=== PATIENT | female | born 1945 | race Caucasian/White ===

== ENCOUNTER 2023-01-13 12:54 | Inpatient (IN) | payer MEDICARE ==
[2023-01-13] MEDS ORDERED: SODIUM CHLORIDE 0.9% 500 ML 500 ML IV ONE (13:14)
--- NOTE | 2023-01-13 13:22 | ED ---
General Adult HPI - General Chief complaint: Weakness Stated complaint: afib Time Seen by Provider: 01/13/23 13:00 Source: patient, EMS, RN notes reviewed, old records reviewed Mode of arrival: EMS Limitations: altered mental status - History of Present Illness Initial comments: This is a 77-year-old female presents emergency Department via EMS report, which she was confused and that is why her called EMS. When EMS R they thought she was in A. fib with rapid ventricular response. Patient's only give any further history because of her dementia. Patient has no one with her at this time to give any further history. - Related Data Home Medications Medication Instructions Recorded Confirmed Metoprolol Succinate (ER) [Toprol 50 mg PO DAILY 01/13/23 01/13/23 Xl] Sertraline [Zoloft] 100 mg PO DAILY 01/13/23 01/13/23 Allergies Allergy/AdvReac Type Severity Reaction Status Date / Time No Known Allergies Allergy Verified 01/13/23 14:19 Review of Systems ROS Statement: Those systems with pertinent positive or pertinent negative responses have been documented in the HPI. ROS Other: All systems not noted in ROS Statement are negative. Past Medical History Past Medical History: Unable to Obtain History of Any Multi-Drug Resistant Organisms: None Reported Past Surgical History: Unable to Obtain Past Psychological History: No Psychological Hx Reported Smoking Status: Current every day smoker Past Alcohol Use History: Occasional Past Drug Use History: None Reported General Exam - General Exam Comments Initial Comments: GENERAL: Patient is well-developed and well-nourished. Patient is nontoxic and well- hydrated and is in no acute distress. ENT: Neck is soft and supple. No significant lymphadenopathy is noted. Oropharynx is clear. Moist mucous membranes. Neck has full range of motion without eliciting any pain. EYES: The sclera were anicteric and conjunctiva were pink and moist. Extraocular movements were intact and pupils were equal round and reactive to light. Eyelids were unremarkable. PULMONARY: Unlabored respirations. Good breath sounds bilaterally. No audible rales rhonchi or wheezing was noted. CARDIOVASCULAR: Patient is tachycardic at 110 beats a minute with occasional extrasystole ABDOMEN: Soft and nontender with normal bowel sounds. SKIN: Skin is clear with no lesions or rashes and otherwise unremarkable. NEUROLOGIC: Patient is alert and oriented 1. Cranial nerves II through XII are grossly intact. Motor and sensory are also intact. Normal speech, volume and content. Symmetrical smile. MUSCULOSKELETAL: Normal extremities with adequate strength and full range of motion. No lower extremity swelling or edema. No calf tenderness. LYMPHATICS: No significant lymphadenopathy is noted PSYCHIATRIC: Normal psychiatric evaluation. Limitations: altered mental status Course Vital Signs 01/13/23 01/13/23 01/13/23 12:55 14:02 16:32 Temperature 99.8 F H 98.7 F Pulse Rate 123 H 96 79 Respiratory 20 18 18 Rate Blood Pressure 100/88 100/88 103/58 O2 Sat by Pulse 87 L 93 L 93 L Oximetry 01/13/23 01/13/23 18:19 19:19 Temperature Pulse Rate 80 67 Respiratory 18 18 Rate Blood Pressure 121/54 125/60 O2 Sat by Pulse 97 96 Oximetry Medical Decision Making - Medical Decision Making EKG was interpreted by myself. EKG shows sinus tachycardia QRSs at a rate of 114 bpm KS interval 110-170 QT interval 390 QTC is 377. Patient's EKG shows multiple PACs Was pt. sent in by a medical professional or institution (, PA, [employer], urgent care, hospital, or snf...) When possible be specific @ -[No] Did you speak to anyone other than the patient for history (EMS, parent, family, police, friend...)? What history was obtained from this source @ -Patient was unable to give any history so EMS control history no family member was with the patient at this time Did you review nursing and triage notes (agree or disagree)? Why? @ -[I reviewed and agree with nursing and triage notes] Were old charts reviewed (outside hosp., previous admission, EMS record, old EKG, old radiological studies, urgent care reports/EKG's, snf records)? Report findings @ -I reviewed prior lab work and prior radiologic studies Differential Diagnosis (chest pain, altered mental status, abdominal pain women, abdominal pain men, vaginal bleeding, weakness, fever, dyspnea, syncope, headache, dizziness, GI bleed, back pain, seizure, CVA, palpatations, mental health, musculoskeletal)? @ -Differential Altered Mental Status: Hypoglycemia, DKA, hypercapnia, ETOH, overdose, CO poisoning, trauma, myxedema coma, HTN encephalopathy, infection, encephalitis, psychosis, intercranial hemorrhage, hepatic encephalopathy, meningitis, CVA, this is not meant to be an all-inclusive list EKG interpreted by me (3pts min.). @ -[As above] X-rays interpreted by me (1pt min.). @ -Chest x-ray was interpreted by myself I see no acute abnormality CT interpreted by me (1pt min.). @ -[None done] U/S interpreted by me (1pt. min.). @ -[None done] What testing was considered but not performed or refused? (CT, X-rays, U/S, labs)? Why? @ -[None] What meds were considered but not given or refused? Why? @ -[None] Did you discuss the management of the patient with other professionals (professionals i.e. , PA, [employer], lab, RT, psych nurse, social work instructor, slicing machine tender, teacher, career services officer, leather case finisher)? Give summary @ -I spoke with the [facility] physician's agreed to admit the patient admitted the patient Was smoking cessation discussed for >3mins.? @ -[No] Was critical care preformed (if so, how long)? @ -[No] Were there social determinants of health that impacted care today? How? (Ho melessness, low income, unemployed, alcoholism, drug addiction, transportation, low edu. Level, literacy, decrease access to med. care, [facility], rehab)? @ -[No] Was there de-escalation of care discussed even if they declined (Discuss DNR or withdrawal of care, Hospice)? DNR status @ -[No] What co-morbidities impacted this encounter? (DM, HTN, Smoking, COPD, CAD, Cancer, CVA, ARF, Chemo, Hep., AIDS, mental health diagnosis, sleep apnea, morbid obesity)? @ -[None] Was patient admitted / discharged? Hospital course, mention meds given and route, prescriptions, significant lab abnormalities, going to OR and other pertinent info. @ -Patient is altered does not know why she is in the emergency department. Patient has urinary tract infection. I started the patient on Rocephin and I spoke with [facility] physician's agreed to admit the patient. I spoke with the he was indicated because of her confusion and her inability to get out of a chair with assistance he did not feel as though he couldn't take care of her Undiagnosed new problem with uncertain prognosis? @ -[No] Drug Therapy requiring intensive monitoring for toxicity (Heparin, Nitro, Insulin, Cardizem)? @ -[No] Were any procedures done? @ -[No] Diagnosis/symptom? @ -Altered mental status Acute, or Chronic, or Acute on Chronic? @ -Acute Uncomplicated (without systemic symptoms) or Complicated (systemic symptoms)? @ -Complicated Side effects of treatment? @ -[No] Exacerbation, Progression, or Severe Exacerbation? @ -[No] Poses a threat to life or bodily function? How? (Chest pain, [place], [place], pneumonia, PE, COPD, DKA, ARF, appy, cholecystitis, CVA, Diverticulitis, Homicidal, Suicidal, threat to staff... and all critical care pts) @ -[No] Diagnosis/symptom? @ -Urinary tract infection Acute, or Chronic, or Acute on Chronic? @ -Acute Uncomplicated (without systemic symptoms) or Complicated (systemic symptoms)? @ -Complicated Side effects of treatment? @ -[none] Exacerbation, Progression, or Severe Exacerbation] @ -[no] Poses a threat to life or bodily function? @ -Yes this could lead to sepsis and end organ dysfunction - Lab Data Result diagrams: 01/14/23 06:43 01/14/23 06:43 Lab Results 01/13/23 01/13/23 01/13/23 Range/Units 13:37 13:37 13:37 WBC 7.7 (3.8-10.6) k/uL RBC 4.04 (3.80-5.40) m/uL Hgb 10.9 L (11.4-16.0) gm/dL Hct 33.2 L (34.0-46.0) % MCV 82.1 (80.0-100.0) fL MCH 26.9 (25.0-35.0) pg MCHC 32.8 (31.0-37.0) g/dL RDW 15.9 H (11.5-15.5) % Plt Count 101 L (150-450) k/uL MPV 7.8 Neutrophils % 93 % Lymphocytes % 1 % Monocytes % 5 % Eosinophils % 0 % Basophils % 0 % Neutrophils # 7.1 (1.3-7.7) k/uL Lymphocytes # 0.1 L (1.0-4.8) k/uL Monocytes # 0.4 (0-1.0) k/uL Eosinophils # 0.0 (0-0.7) k/uL Basophils # 0.0 (0-0.2) k/uL Poikilocytosis Slight PT 10.7 (9.0-12.0) sec INR 1.0 (<1.2) APTT 24.1 (22.0-30.0) sec Sodium (137-145) mmol/L Potassium (3.5-5.1) mmol/L Chloride (98-107) mmol/L Carbon Dioxide (22-30) mmol/L Anion Gap mmol/L BUN (7-17) mg/dL Creatinine (0.52-1.04) mg/dL Est GFR (CKD-EPI)AfAm (>60 ml/min/1.73 sqM) Est GFR (CKD-EPI)NonAf (>60 ml/min/1.73 sqM) Glucose (74-99) mg/dL Calcium (8.4-10.2) mg/dL Total Bilirubin (0.2-1.3) mg/dL AST (14-36) U/L ALT (4-34) U/L Alkaline Phosphatase (38-126) U/L Troponin I (0.000-0.034) ng/mL Total Protein (6.3-8.2) g/dL Albumin (3.5-5.0) g/dL Urine Color Yellow Urine Appearance Turbid H (Clear) Urine pH 6.0 (5.0-8.0) Ur Specific Mozelle 1.017 (1.001-1.035) Urine Protein 3+ H (Negative) Urine Glucose (UA) Trace H (Negative) Urine Ketones Trace H (Negative) Urine Blood Large H (Negative) Urine Nitrite Negative (Negative) Urine Bilirubin Negative (Negative) Urine Urobilinogen <2.0 (<2.0) mg/dL Ur Leukocyte Esterase Large H (Negative) Urine RBC 38 H (0-5) /hpf Urine WBC >182 H (0-5) /hpf Urine WBC Clumps Many H (None) /hpf Ur Squamous Epith Cells 5 H (0-4) /hpf Urine Bacteria Many H (None) /hpf Urine Opiates Screen Not Detected (NotDetected) Ur Oxycodone Screen Not Detected (NotDetected) Urine Methadone Screen Not Detected (NotDetected) Ur Propoxyphene Screen Not Detected (NotDetected) Ur Barbiturates Screen Not Detected (NotDetected) U Tricyclic Antidepress Not Detected (NotDetected) Ur Phencyclidine Scrn Not Detected (NotDetected) Ur Amphetamines Screen Not Detected (NotDetected) U Methamphetamines Scrn Not Detected (NotDetected) U Benzodiazepines Scrn Not Detected (NotDetected) Urine Cocaine Screen Not Detected (NotDetected) U Marijuana (THC) Screen Not Detected (NotDetected) 01/13/23 01/13/23 Range/Units 13:37 13:37 WBC (3.8-10.6) k/uL RBC (3.80-5.40) m/uL Hgb (11.4-16.0) gm/dL Hct (34.0-46.0) % MCV (80.0-100.0) fL MCH (25.0-35.0) pg MCHC (31.0-37.0) g/dL RDW (11.5-15.5) % Plt Count (150-450) k/uL MPV Neutrophils % % Lymphocytes % % Monocytes % % Eosinophils % % Basophils % % Neutrophils # (1.3-7.7) k/uL Lymphocytes # (1.0-4.8) k/uL Monocytes # (0-1.0) k/uL Eosinophils # (0-0.7) k/uL Basophils # (0-0.2) k/uL Poikilocytosis PT (9.0-12.0) sec INR (<1.2) APTT (22.0-30.0) sec Sodium 133 L (137-145) mmol/L Potassium 4.2 (3.5-5.1) mmol/L Chloride 102 (98-107) mmol/L Carbon Dioxide 21 L (22-30) mmol/L Anion Gap 10 mmol/L BUN 62 H (7-17) mg/dL Creatinine 2.09 H (0.52-1.04) mg/dL Est GFR (CKD-EPI)AfAm 25 (>60 ml/min/1.73 sqM) Est GFR (CKD-EPI)NonAf 22 (>60 ml/min/1.73 sqM) Glucose 119 H (74-99) mg/dL Calcium 8.1 L (8.4-10.2) mg/dL Total Bilirubin 0.8 (0.2-1.3) mg/dL AST 30 (14-36) U/L ALT 22 (4-34) U/L Alkaline Phosphatase 73 (38-126) U/L Troponin I 0.066 H* (0.000-0.034) ng/mL Total Protein 5.3 L (6.3-8.2) g/dL Albumin 2.8 L (3.5-5.0) g/dL Urine Color Urine Appearance (Clear) Urine pH (5.0-8.0) Ur Specific Mozelle (1.001-1.035) Urine Protein (Negative) Urine Glucose (UA) (Negative) Urine Ketones (Negative) Urine Blood (Negative) Urine Nitrite (Negative) Urine Bilirubin (Negative) Urine Urobilinogen (<2.0) mg/dL Ur Leukocyte Esterase (Negative) Urine RBC (0-5) /hpf Urine WBC (0-5) /hpf Urine WBC Clumps (None) /hpf Ur Squamous Epith Cells (0-4) /hpf Urine Bacteria (None) /hpf Urine Opiates Screen (NotDetected) Ur Oxycodone Screen (NotDetected) Urine Methadone Screen (NotDetected) Ur Propoxyphene Screen (NotDetected) Ur Barbiturates Screen (NotDetected) U Tricyclic Antidepress (NotDetected) Ur Phencyclidine Scrn (NotDetected) Ur Amphetamines Screen (NotDetected) U Methamphetamines Scrn (NotDetected) U Benzodiazepines Scrn (NotDetected) Urine Cocaine Screen (NotDetected) U Marijuana (THC) Screen (NotDetected) Disposition Clinical Impression: UTI (urinary tract infection), Altered mental status Disposition: ADMITTED IP TO THIS [facility] Time of Disposition: 15:15
[2023-01-13 14:44] LABS: Basophils % (A) 0 %; Eosinophils % (A) 0 %; HCT 33.2 % (34.0-46.0); HGB 10.9 gm/dL (11.4-16.0); Lymphocytes # (A) 0.1 k/uL (1.0-4.8); Lymphocytes % (A) 1 %; MCH 26.9 pg (25.0-35.0); MCHC 32.8 g/dL (31.0-37.0); MCV 82.1 fL (80.0-100.0); Mean Platelet Volume 7.8; Monocytes # (A) 0.4 k/uL (0-1.0); Monocytes % (A) 5 %; Neutrophils # (A) 7.1 k/uL (1.3-7.7); Neutrophils % (A) 93 %; Platelet Count 101 k/uL (150-450); Poikilocytosis Slight; RBC 4.04 m/uL (3.80-5.40); RDW 15.9 % (11.5-15.5); WBC 7.7 k/uL (3.8-10.6)
[2023-01-13 14:51] LABS: Appearance,Urine Turbid (Clear); Bacteria,Urine Many /hpf; Bilirubin,Urine Negative (Negative); Blood,Urine Large (Negative); Color,Urine Yellow; Glucose,Urine (UA) Trace (Negative); Ketones,Urine Trace (Negative); Leukocyte Esterase,Urine Large (Negative); Nitrite,Urine Negative (Negative); Protein,Urine 3+ (Negative); RBC,Urine 38 /hpf (0-5); Specific Gravity,Urine 1.017 (1.001-1.035); Squamous Epithelial Cell,Urine 5 /hpf (0-4); Urobilinogen,Urine <2.0 mg/dL (<2.0); WBC,Urine >182 /hpf (0-5)
[2023-01-13 14:54] LABS: Partial Thromboplastin Time 24.1 sec (22.0-30.0); Prothrombin Time 10.7 sec (9.0-12.0)
[2023-01-13] MEDS ORDERED: cefTRIAXone IN SWFI 1,000 MG/10 ML SYRINGE IVP STA (14:55)
[2023-01-13] MEDS ORDERED: SODIUM CHLORIDE 0.9% 1,000 ML IV ONE (15:15)
[2023-01-13 15:20] LABS: Cocaine Screen,Urine Not Detected (NotDetected); Phencyclidine Screen,Urine Not Detected (NotDetected)
[2023-01-13 15:21] LABS: Amphetamine Screen,Urine Not Detected (NotDetected); Benzodiazepines Screen,Urine Not Detected (NotDetected); Opiate Screen,Urine Not Detected (NotDetected); Tricyclic Antidepressant,Urine Not Detected (NotDetected)
[2023-01-13 15:22] LABS: Barbiturate Screen,Urine Not Detected (NotDetected); Methadone Screen, Urine Not Detected (NotDetected)
[2023-01-13 15:23] LABS: Oxycodone Screen, Urine Not Detected (NotDetected); Urn Cannabinoid Scrn Not Detected (NotDetected)
[2023-01-13 15:27] LABS: Albumin 2.8 g/dL (3.5-5.0); Calcium 8.1 mg/dL (8.4-10.2); Potassium 4.2 mmol/L (3.5-5.1); Total Bilirubin 0.8 mg/dL (0.2-1.3); Total Protein 5.3 g/dL (6.3-8.2)
--- NOTE | 2023-01-13 15:30 | XR ---
EXAMINATION TYPE: XR chest 2V DATE OF EXAM: 01/13/2023 COMPARISON: NONE TECHNIQUE: PA and lateral views submitted. HISTORY: A. Fib FINDINGS: The lungs are clear and there is no pneumothorax, pleural effusion, or focal pneumonia. Heart size normal and no overt failure. Osseous structures demonstrate hypertrophic and degenerative changes of the spine. Hyperinflation suggests COPD. Related previous last implant surgery. IMPRESSION: 1. No acute process.
--- NOTE | 2023-01-13 16:18 | P.HPIM ---
History of Present Illness H&P Date: 01/13/23 Chief Complaint: Generalized weakness, confusion 77-year-old woman with medical history of hypertension, depression presented for generalized weakness and confusion. According to the patient, she has been having generalized shakes, increasing weakness over the last month, worse in the last 2 weeks. This is why she believes she is in the hospital. However, from my understanding from history taken from the ER provider signout, patient was confused and not sure why she was in the emergency room initially, and was actually brought in by her cousin who lives with her. According to her cousin, patient has an having increasing confusion, and has not moved much from the bed over the last several weeks, but worse the last couple days. Due to concern over this, patient was brought in by patient's cousin for further evaluation. When this history was reviewed with the patient, she largely agrees with the course of events, she does report that she's been having generalized shakes, weakness. She says that she has not been able to walk over the last month, but before that she was able to walk with the use of a walker. She lives independently with her cousin who is her roommate, does not seek the help of any home health care services at this time, and was previously able to take care of her IADLs and ADLs independently. She reports a history of high blood pressure for which she takes a medication that she can't recall immediately, but denies any other history including denial of strokes, heart attacks/heart disease, kidney disease, liver disease, diabetes, hyper lipidemia. She denies fevers, chills, nausea, vomiting, chest pain, palpitations, syncopal, presyncope, cough, dyspnea, abdominal pain, constipation, diarrhea, numbness/weakness of extremities. She does report dysuria and hesitancy with urination, worse in the last couple days. In the emergency room, patient was noted to have a temperature of 99.8, 100/88, heart rate 123, 87% on room air. She was placed on 4 L nasal cannula and saturating 93%. CBC demonstrated anemia down to 10.9, thrombocytopenia to 101. Basic metabolic panel shows sodium of 133, CO2 of 21, BUN of 62, creatinine 2.1, baseline creatinine is noted to be 1.5 from October 2022. Liver function tests showed low total albumin of 2.8, low total protein of 5.3. Troponin was 0.066. Coags are unremarkable. UA showed 3+ protein, trace glucose, trace ketones, large blood, large leukocyte esterase, 30 red blood cells, greater than 182 white blood cells, but was contaminated with 5 squamous epithelial cells. Urine tox screen is negative. EKG demonstrated sinus tachycardia with left axis deviation, T-wave inversions in leads 1, aVL, V2; there are frequent premature supraventricular complexes. Chest x-ray shows hyperinflation suggestive of COPD, previous implant surgery, but no pneumothorax, pleural effusion, focal pneumonia. Case was discussed with the emergency room provider and decision was made to admit the patient for further evaluation. All Systems reviewed and pertinent positives and negatives noted in HPI, all other symptoms are negative Gen: in no apparent distress, resting comfortably in bed, alert and oriented 3, confusion appears to have improved to baseline Eyes: PERRL, no scleral injection or icterus HENT: normocephalic, atraumatic, good hearing acuity, moist mucous membranes Neck: no tracheal deviation, full range of motion Resp: good air exchange, breathing comfortably with no accessory muscle use, no tactile fremitus, bilateral crackles in the bases, no wheezing CVS: good distal perfusion x 4, bilateral pitting edema with venous stasis changes, no appreciable murmurs, regular rate and rhythm GI: soft, NTTP, ND, no hepatosplenomegaly : Present suprapubic tenderness, no CVAT, wahl catheter not present MSK: no clubbing, no cyanosis, no noted contractures of extremities Skin: no noted rashes, petechiae; temperature of skin is appropriate Neuro: moving all extremities without signs of weakness, CN II-XII intact Psych: cooperative, euthymic mood, insight and judgment intact Labs and imaging reviewed as above Assessment: Metabolic encephalopathy Complicated urinary tract infection Acute kidney injury superimposed on chronic kidney disease stage III Acute hypoxemic respiratory failure Generalized weakness Elevated troponin Hypertension Plan: Vital signs reviewed and noted in the HPI Lab work reviewed and noted in the HPI EKG is personally interpreted and noted in the HPI Chest x-ray documentation was reviewed, image could not be accessed due to EMR technical issues Case was discussed with the Emergency Room provider and decision was made to admit the patient for generalized weakness, acute kidney injury, encephalopathy, UTI CBC, basic metabolic panel, magnesium ordered for tomorrow Start the patient on ceftriaxone 2 g every 24 hours Follow up urine culture Follow-up blood culture Normal saline at 75 mL per hour Ordered influenza A/B, RSV, Covid testing Echocardiogram ordered BNP added to her admission labs, trend troponins PT/OT consulted Continue home sertraline Repeat urinalysis given squamous epithelial cells Urine sodium, creatinine, protein Renal ultrasound Patient is DO NOT RESUSCITATE/DO NOT INTUBATE DVT prophylaxis with heparin 3 times a day Past Medical History Past Medical History: Unable to Obtain History of Any Multi-Drug Resistant Organisms: None Reported Past Surgical History: Unable to Obtain Past Psychological History: No Psychological Hx Reported Smoking Status: Current every day smoker Past Alcohol Use History: Occasional Past Drug Use History: None Reported Medications and Allergies Home Medications Medication Instructions Recorded Confirmed Type Metoprolol Succinate (ER) [Toprol 50 mg PO DAILY 01/13/23 01/13/23 History Xl] Sertraline [Zoloft] 100 mg PO DAILY 01/13/23 01/13/23 History Allergies Allergy/AdvReac Type Severity Reaction Status Date / Time No Known Allergies Allergy Verified 01/13/23 14:19 Physical Exam Osteopathic Statement: *. No significant issues noted on an osteopathic structural exam other than those noted in the History and Physical/Consult. Vitals: Vital Signs Temp Pulse Resp BP Pulse Ox 01/13/23 14:02 96 18 100/88 93 L 01/13/23 12:55 99.8 F H 123 H 20 100/88 87 L Intake and Output 01/13/23 01/13/23 01/13/23 06:59 14:59 22:59 Other: Weight 83.915 kg Results CBC & Chem 7: 01/13/23 13:37 01/13/23 13:37 Labs: Abnormal Lab Results - Last 24 Hours (Table) 01/13/23 01/13/23 01/13/23 Range/Units 13:37 13:37 13:37 Hgb 10.9 L (11.4-16.0) gm/dL Hct 33.2 L (34.0-46.0) % RDW 15.9 H (11.5-15.5) % Plt Count 101 L (150-450) k/uL Lymphocytes # 0.1 L (1.0-4.8) k/uL Sodium 133 L (137-145) mmol/L Carbon Dioxide 21 L (22-30) mmol/L BUN 62 H (7-17) mg/dL Creatinine 2.09 H (0.52-1.04) mg/dL Glucose 119 H (74-99) mg/dL Calcium 8.1 L (8.4-10.2) mg/dL Troponin I (0.000-0.034) ng/mL Total Protein 5.3 L (6.3-8.2) g/dL Albumin 2.8 L (3.5-5.0) g/dL Urine Appearance Turbid H (Clear) Urine Protein 3+ H (Negative) Urine Glucose (UA) Trace H (Negative) Urine Ketones Trace H (Negative) Urine Blood Large H (Negative) Ur Leukocyte Esterase Large H (Negative) Urine RBC 38 H (0-5) /hpf Urine WBC >182 H (0-5) /hpf Urine WBC Clumps Many H (None) /hpf Ur Squamous Epith Cells 5 H (0-4) /hpf Urine Bacteria Many H (None) /hpf 01/13/23 Range/Units 13:37 Hgb (11.4-16.0) gm/dL Hct (34.0-46.0) % RDW (11.5-15.5) % Plt Count (150-450) k/uL Lymphocytes # (1.0-4.8) k/uL Sodium (137-145) mmol/L Carbon Dioxide (22-30) mmol/L BUN (7-17) mg/dL Creatinine (0.52-1.04) mg/dL Glucose (74-99) mg/dL Calcium (8.4-10.2) mg/dL Troponin I 0.066 H* (0.000-0.034) ng/mL Total Protein (6.3-8.2) g/dL Albumin (3.5-5.0) g/dL Urine Appearance (Clear) Urine Protein (Negative) Urine Glucose (UA) (Negative) Urine Ketones (Negative) Urine Blood (Negative) Ur Leukocyte Esterase (Negative) Urine RBC (0-5) /hpf Urine WBC (0-5) /hpf Urine WBC Clumps (None) /hpf Ur Squamous Epith Cells (0-4) /hpf Urine Bacteria (None) /hpf
--- NOTE | 2023-01-13 18:22 | US ---
EXAMINATION TYPE: US kidneys/renal and bladder DATE OF EXAM: 01/13/2023 COMPARISON: NONE CLINICAL INDICATION: Female, 77 years old with history of acute kidney injury, UTI; MATTHEW and UTI EXAM MEASUREMENTS: Right Kidney: 9.2 x 4.8 x 4.7 cm Left Kidney: 10.5 x 5.7 x 6.1 cm Right Kidney: Parenchyma appears to have a lobular contour. Echogenic foci seen mid pole measuring 0. 9 x 0.7 x 0.4cm Left Kidney: Echogenic foci seen in sup pole measuring 0.4 x 0.2cm. Bladder: wnl Bilateral Jets seen: No due to artifact There is no evidence for hydronephrosis at this point in time. No nephrolithiasis is seen. No justice s are identified. The urinary bladder is anechoic. Bilateral ureteral jets are seen. IMPRESSION: Nonobstructing left renal calculus and right renal cortical calculus. No evidence for hydronephrosis.
[2023-01-13] MEDS: FUROSEMIDE 10 MG/ML 4 ML VIAL IV SCH (19:24)
[2023-01-14 04:41] LABS: Creatinine,Urine Random 74.2 mg/dL (28.0-217.0)
[2023-01-14 05:03] LABS: Total Protein,Urine Random >600.0 mg/dL (0.0-13.5)
[2023-01-14 07:29] LABS: Basophils % (A) 0 %; Eosinophils % (A) 1 %; HCT 35.4 % (34.0-46.0); HGB 10.9 gm/dL (11.4-16.0); Hypochromasia Slight; Lymphocytes # (A) 0.2 k/uL (1.0-4.8); Lymphocytes % (A) 3 %; MCH 26.5 pg (25.0-35.0); MCHC 30.7 g/dL (31.0-37.0); MCV 86.2 fL (80.0-100.0); Mean Platelet Volume 7.9; Monocytes # (A) 0.5 k/uL (0-1.0); Monocytes % (A) 7 %; Neutrophils # (A) 5.8 k/uL (1.3-7.7); Neutrophils % (A) 88 %; RBC 4.11 m/uL (3.80-5.40); RDW 15.8 % (11.5-15.5); WBC 6.7 k/uL (3.8-10.6)
[2023-01-14 07:42] LABS: Calcium 8.1 mg/dL (8.4-10.2); Magnesium 1.8 mg/dL (1.6-2.3); Potassium 4.2 mmol/L (3.5-5.1)
[2023-01-14 09:14] LABS: Platelet Count 95 k/uL (150-450)
[2023-01-14] MEDS: METOPROLOL SUCCINATE (ER) 50 MG TAB.ER.24H PO SCH (09:26)
[2023-01-14] MEDS: SERTRALINE 100 MG TAB PO SCH (09:26)
[2023-01-14] MEDS: ASPIRIN 81 MG PO SCH (09:27)
[2023-01-14] MEDS: FUROSEMIDE 10 MG/ML 4 ML VIAL IV SCH (09:27)
--- NOTE | 2023-01-14 11:07 | P.NPCON ---
History of Present Illness - Reason for Consult acute renal failure, chronic renal failure - History of Present Illness Reason for consultation: Acute kidney injury on chronic kidney disease. History of present illness: Patient is a 77-year-old female sitting in renal consultation for acute kidney injury on chronic kidney disease. Patient's creatinine dated 11/05/2022 was 1.5. This admission was 2.09 and a 2.79 today. 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 Patient is not a very reliable historian. She was brought to the hospital by t he EMS due to confusion. She was noted to be in A. fib with RVR and is currently maintained on metoprolol. Heart rate is currently controlled. Blood pressure stable. She is on 3 L nasal cannula. Patient's blood cultures positive for E. coli. UA suggestive of UTI. Does also 3+ protein noted on the UA. Patient denies history of diabetes. Patient is incontinent. She denies any gross hematuria. I don't see any nonsteroidals in her home medication list. She did have a low-grade temperature of 99.8F on admission but has been afebrile since. Vital signs are stable. General: No acute distress. HEENT: Head exam is unremarkable. On nasal cannula. LUNGS: Rhonchi at bases. HEART: Rate and Rhythm are regular. ABDOMEN: Nontender. EXTREMITITES: 1+ edema. Past Medical History Past Medical History: Unable to Obtain History of Any Multi-Drug Resistant Organisms: None Reported Past Surgical History: Unable to Obtain Past Psychological History: No Psychological Hx Reported Smoking Status: Current every day smoker Past Alcohol Use History: Occasional Past Drug Use History: None Reported Medications and Allergies Home Medications Medication Instructions Recorded Confirmed Type Metoprolol Succinate (ER) [Toprol 50 mg PO DAILY 01/13/23 01/13/23 History Xl] Sertraline [Zoloft] 100 mg PO DAILY 01/13/23 01/13/23 History Allergies Allergy/AdvReac Type Severity Reaction Status Date / Time No Known Allergies Allergy Verified 01/13/23 14:19 Physical Exam Vitals: Vital Signs Temp Pulse Pulse Resp BP BP Pulse Ox 01/14/23 08:45 96 01/14/23 08:00 98.1 F 72 16 159/81 97 01/14/23 04:00 98.5 F 78 18 148/72 95 05/05/23 00:00 80 18 166/83 97 01/13/23 20:00 98.1 F 75 20 159/85 96 01/13/23 19:19 67 18 125/60 96 01/13/23 18:19 80 18 121/54 97 01/13/23 16:32 98.7 F 79 18 103/58 93 L 01/13/23 14:02 96 18 100/88 93 L 01/13/23 12:55 99.8 F H 123 H 20 100/88 87 L Intake and Output 01/13/23 01/14/23 01/14/23 22:59 06:59 14:59 Other: Voiding Method Diaper Diaper Incontinent Incontinent # Voids 2 Weight 83.915 kg Results - Lab Results Most recent lab results Calcium 8.1 mg/dL (8.4-10.2) L 01/14/23 06:43 Magnesium 1.8 mg/dL (1.6-2.3) 01/14/23 06:43 01/14/23 06:43 01/14/23 06:43 Assessment and Plan Plan: Assessment: 1. Acute kidney injury secondary to ATN secondary to severe sepsis and cardiorenal syndrome. Creatinine 2.79 today. 2. Chronic kidney disease stage IIIB with creatinine 1.5 in October 2022. 3. Proteinuria. 3+ protein noted on UA however this was done in the setting of acute kidney injury and UTI. 4. Volume overload. 5. E. coli bacteremia with likely source being UTI. On IV antibiotics. Plan: Maintain IV Lasix. Low-salt diet and 1500 mL fluid restriction. Follow-up echocardiogram. Repeat UA once UTI treated. I will order serologies to check for GN. 24 hour urine collection can be done once UTI is completely treated. This can be done outpatient. Avoid nephrotoxins. Continue to monitor renal function and urine output. Thank you for the consultation. I will continue to follow the patient with you during her hospital stay.
--- NOTE | 2023-01-14 11:43 | P.CRDCN ---
History of Present Illness History of present illness: HISTORY OF PRESENT ILLNESS: This is a 77-year-old female with a past medical history significant for hypertension and depression. Patient does not follow with a stuntman. We have been asked to see the patient in consultation for congestive heart failure. Patient examined at the bedside. Patient is somewhat of a poor historian upon evaluation. The patient states that she came into the hospital because she was feeling weak at home. She reports that she was having shaking movements of her hands and the rest of her body. She reports feeling confused at home. The patient was found to have a urinary tract infection and was started on antibiotics. The patient was also found to be in congestive heart failure and was started on IV Lasix. The patient currently denies chest pain or pressure. She denies shortness of breath. Vital signs are stable. * EKG reveals sinus mechanism with T-wave inversions in lead 1 and aVL. LVH. * Chest xray negative for acute process * Laboratory data: WBC 6.7. Hemoglobin 10.9. Platelet count 95. Sodium 136. Potassium 4.2. BUN 65. Creatinine 2.79. Troponin 0.066. 0.155. ProBNP 27,700. * Current home cardiac medications include metoprolol succinate 50 mg daily * No previous echocardiogram available for review REVIEW OF SYSTEMS: At the time of my exam: CONSTITUTIONAL: Denies fever or chills. HEENT: Denies blurred vision, vision changes, or eye pain. Denies hemoptysis CARDIOVASCULAR: Denies chest pain. Denies orthopnea. Denies PND. Denies palpitations RESPIRATORY: Denies shortness of breath. GASTROINTESTINAL: Denies abdominal pain. Denies nausea or vomiting. HEMATOLOGIC: Denies bleeding disorders. GENITOURINARY: Denies any blood in urine. SKIN: Denies pruitis. Denies rash. PHYSICAL EXAM: VITAL SIGNS: Reviewed. GENERAL: Well-developed in no acute distress. HEENT: Head is normocephalic. Pupils are equal, round. Sclerae anicteric. Mucous membranes of the mouth are moist. Neck supple. No JVD or thyromegaly LUNGS: Respirations even and unlabored. Lungs essentially clear to auscultation bilaterally. HEART: Regular rate and rhythm. S1 and S2 heard. Systolic murmur noted ABDOMEN: Soft. Nondistended. Nontender. EXTREMITIES: Normal range of motion. No clubbing or cyanosis. Peripheral pulses intact. Trace lower extremity edema NEUROLOGIC: Awake and alert. Oriented x 3. ASSESSMENT: Altered mental status Generalized weakness Urinary tract infection E. coli bacteremia Acute congestive heart failure, type unknown, echo pending Acute on chronic kidney disease Abnormal troponins, suspect secondary to above History of hypertension History of depression PLAN: Obtain 2-D echo to assess cardiac structure and function Continue home dose of metoprolol succinate Add aspirin 81 mg daily Continue Lasix 40 mg IV daily Daily weights, accurate I&O, and monitoring of kidney function Obtain additional troponin level Obtain lipid panel Further recommendations pending patient's course Nurse practitioner note has been reviewed by physician. Signing provider agrees with the documented findings, assessment, and plan of care. Past Medical History Past Medical History: Unable to Obtain History of Any Multi-Drug Resistant Organisms: None Reported Past Surgical History: Unable to Obtain Past Psychological History: No Psychological Hx Reported Smoking Status: Current every day smoker Past Alcohol Use History: Occasional Past Drug Use History: None Reported Medications and Allergies Home Medications Medication Instructions Recorded Confirmed Type Metoprolol Succinate (ER) [Toprol 50 mg PO DAILY 01/13/23 01/13/23 History Xl] Sertraline [Zoloft] 100 mg PO DAILY 01/13/23 01/13/23 History Allergies Allergy/AdvReac Type Severity Reaction Status Date / Time No Known Allergies Allergy Verified 01/13/23 14:19 Physical Exam Vitals: Vital Signs Temp Pulse Pulse Resp BP BP Pulse Ox 01/14/23 08:45 96 01/14/23 08:00 98.1 F 72 16 159/81 97 01/14/23 04:00 98.5 F 78 18 148/72 95 01/14/23 00:00 80 18 166/83 97 01/13/23 20:00 98.1 F 75 20 159/85 96 01/13/23 19:19 67 18 125/60 96 01/13/23 18:19 80 18 121/54 97 01/13/23 16:32 98.7 F 79 18 103/58 93 L 01/13/23 14:02 96 18 100/88 93 L 01/13/23 12:55 99.8 F H 123 H 20 100/88 87 L Intake and Output 01/13/23 01/14/23 01/14/23 22:59 06:59 14:59 Other: Voiding Method Diaper Diaper Incontinent Incontinent # Voids 2 Weight 83.915 kg Results 01/14/23 06:43 01/14/23 06:43 Cardiac Enzymes 01/13/23 01/13/23 01/13/23 Range/Units 13:37 13:37 16:39 AST 30 (14-36) U/L Troponin I 0.066 H* 0.155 H* (0.000-0.034) ng/mL Coagulation 01/13/23 Range/Units 13:37 PT 10.7 (9.0-12.0) sec APTT 24.1 (22.0-30.0) sec CBC 01/13/23 01/14/23 Range/Units 13:37 06:43 WBC 7.7 6.7 (3.8-10.6) k/uL RBC 4.04 4.11 (3.80-5.40) m/uL Hgb 10.9 L 10.9 L (11.4-16.0) gm/dL Hct 33.2 L 35.4 (34.0-46.0) % Plt Count 101 L (150-450) k/uL Comprehensive Metabolic Panel 01/13/23 01/14/23 Range/Units 13:37 06:43 Sodium 133 L 136 L (137-145) mmol/L Potassium 4.2 4.2 (3.5-5.1) mmol/L Chloride 102 103 (98-107) mmol/L Carbon Dioxide 21 L 24 (22-30) mmol/L BUN 62 H 65 H (7-17) mg/dL Creatinine 2.09 H 2.79 H (0.52-1.04) mg/dL Glucose 119 H 93 (74-99) mg/dL Calcium 8.1 L 8.1 L (8.4-10.2) mg/dL AST 30 (14-36) U/L ALT 22 (4-34) U/L Alkaline Phosphatase 73 (38-126) U/L Total Protein 5.3 L (6.3-8.2) g/dL Albumin 2.8 L (3.5-5.0) g/dL Current Medications Generic Name Dose Route Start Last Admin Trade Name Freq PRN Reason Stop Dose Admin Furosemide 40 mg 01/13/23 18:15 01/13/23 19:24 Furosemide 10 Mg/Ml 4 Ml Vial IV 40 mg DAILY KYLE Administration Ceftriaxone Sodium 2 gm/ 50 mls @ 100 mls/hr 01/14/23 09:00 Sodium Chloride IVPB Q24HR KYLE Protocol Metoprolol Succinate 50 mg 01/14/23 09:00 Metoprolol Succinate (Er) 50 Mg Tab.Er.24h PO DAILY KYLE Sertraline HCl 100 mg 01/14/23 09:00 Sertraline 100 Mg Tab PO DAILY KYLE Intake and Output 01/13/23 01/14/23 01/14/23 22:59 06:59 14:59 Other: Voiding Method Diaper Diaper Incontinent Incontinent # Voids 2 Weight 83.915 kg Patient Weight 01/15/23 06:59 Weight 83.915 kg 01/14/23 06:43 01/14/23 06:43
--- NOTE | 2023-01-14 13:08 | CDI ---
Documentation Clarification Form Date: 01/14/2023 12:57:18 PM From: Nona Hi RN CCDS Phone: [phone] Admit Date: 01/13/2023 3:17:00 PM Patient Name: Cynthia Bowden Visit Number: [id number] Discharge Date: ATTENTION: The Clinical Documentation Specialists (CDI) and [facility] Coding Staff appreciate your assistance in clarifying documentation. Please respond to the clarification below the line at the bottom and electronically sign. The CDI & [facility] Coding staff will review the response and follow-up if needed. Please note: Queries are made part of the Legal Health Record. If you have any questions, please contact the author of this message via ITS. Dr. Jose Alfredo Rutledge There is documentation of E. coli bacteremia , 01/14, Nephrology consult . Bacteremia is considered a lab finding. Additional clarification regarding bacteremia is requested. Patient history/risk factors:77 year old female presents with confusion, A fib RVR, increasing weakness and generalized shakes. Medical History: HTN, CHF, Kidney disease, DM and HLD. 01/13, H&P. Clinical Indicators: VSS: 01/13 B/P 100/88; HR 123; Temp 99.8 F Oral; RR 20; SpO2 87% room air Labs: 01/13 Wbc 7.7; Hgb 10.9; Lymphocytes 0.1 Blood Culture: 01/13 Escherichia coli Treatment: 01/13 0.9ns 1L IV bolus; Antibiotics 01/13 Rocephin IVP x 2; 01/14 Ceftriaxone IVPB Q24HR X 1; 01/15 Ceftriaxone IVPB Q24H Please provide additional clarification regarding the etiology/cause and/or clinical significance of the bacteremia: [x] Bacteremia is related to sepsis [x] Bacteremia is due to infectious process, please specify: Urinary tract infection [ ] Bacteremia is not clinically significant [ ] Other, please specify [ ] Unable to determine (Template Last Revised: November 2020) SATHISHD
--- NOTE | 2023-01-14 13:25 | CDI ---
Documentation Clarification Form Date: 01/14/2023 1:11:54 PM From: Nona Hi RN CCDS Phone: [phone] Admit Date: 01/13/2023 3:17:00 PM Patient Name: Cynthia Bowden Visit Number: [id number] Discharge Date: ATTENTION: The Clinical Documentation Specialists (CDI) and [facility] Coding Staff appreciate your assistance in clarifying documentation. Please respond to the clarification below the line at the bottom and electronically sign. The CDI & [facility] Coding staff will review the response and follow-up if needed. Please note: Queries are made part of the Legal Health Record. If you have any questions, please contact the author of this message via ITS. Dr. Mare Pappas MD Your patient has troponin level(s) of: 0.066; 0.155; 0.224, 01/14. Please clarify if there is an additional diagnosis and/or clinical significance related to this value. Patient history/risk factors:77 year old female presents with confusion, A fib RVR, increasing weakness and generalized shakes. Medical History: HTN, CHF, Kidney disease, DM and HLD. 01/13, H&P. Clinical indicators: VSS: 01/13 B/P 100/88; HR 123; Temp 99.8 F Oral; RR 20; SpO2 87% room air Troponins, 01/13: 0.066; 0.155; 0.224 Pro BNP: 01/13 [id number] 01/14 Cardiology consult and notes 01/15 & 01/16 : Abnormal troponins, suspect related to: Ecoli UTI, Acute on chronic heart failure and acute / chronic kidney disease Treatment: 01/13 0.9ns 1L IV bolus; 01/13 Lasix 40mg IV Daily; Toprol 50mg PO DAILY Antibiotics 01/13 Rocephin IVP x 2; 01/14 Ceftriaxone IVPB Q24HR X 1; 01/15 Ceftriaxone IVPB Q24H Is there an additional diagnosis and/or clinical significance related to the above lab result/information: [ ] Type 2 FL due to Sepsis [ ] Type 2 FL due to congestive heart failure. [ ] Type 2 FL due to (specify cause ____) [ xxx ] Non-ischemic myocardial injury [ ] No additional diagnosis/Not clinically significant [ ] Other, please specify [ ] Unable to determine (Template Last Reviewed: June 2021) MTDD
--- NOTE | 2023-01-14 13:48 | P.PN ---
Subjective Progress Note Date: 01/14/23 Patient feels improved today, continues to report shortness of breath. Gen: awake, alert HEENT: normocephalic, atraumatic, good hearing acuity, moist mucous membranes Resp: good air exchange, breathing comfortably with no accessory muscle use CVS: good distal perfusion x 4, GI: soft, NTTP, ND : no SPT, no CVAT, wahl catheter not present MSK: Bilateral pitting edema, no clubbing Neuro: non-focal, moving all extremities Psych: cooperative, euthymic mood Hospital course: 77-year-old woman with medical history of hypertension, depression presented for generalized weakness and confusion. In the emergency room, patient was noted to have a temperature of 99.8, 100/88, heart rate 123, 87% on room air. She was placed on 4 L nasal cannula and saturating 93%. CBC demonstrated anemia down to 10.9, thrombocytopenia to 101. Basic metabolic panel shows sodium of 133, CO2 of 21, BUN of 62, creatinine 2.1, baseline creatinine is noted to be 1.5 from October 2022. Liver function tests showed low total albumin of 2.8, low total protein of 5.3. Troponin was 0.066. Coags are unremarkable. UA showed 3+ protein, trace glucose, trace ketones, large blood, large leukocyte esterase, 30 red blood cells, greater than 182 white blood cells, but was contaminated with 5 squamous epithelial cells. Urine tox screen is negative. EKG demonstrated sinus tachycardia with left axis deviation, T-wave inversions in leads 1, aVL, V2; there are frequent premature supraventricular complexes. Chest x-ray shows hyperinflation suggestive of COPD, previous implant surgery, but no pneumothorax, pleural effusion, focal pneumonia. Case was discussed with the emergency room provider and decision was made to admit the patient for further evaluation. Assessment: Metabolic encephalopathy secondary to sepsis Complicated urinary tract infection E. coli bacteremia Acute congestive heart failure, unknown type Acute kidney injury superimposed on chronic kidney disease stage III Acute hypoxemic respiratory failure Generalized weakness Elevated troponin Hypertension Plan: Today, patient is afebrile, 144/80, heart rate 82, 97% on 3 L of nasal cannula CBC demonstrates anemia down to 10.9, thrombocytopenia to 95 Chest x-ray was personally reviewed by me, appears to have evidence of volume overload with bilateral congestion, left atrial enlargement of the heart Case was discussed with nephrology, proteinuria may really be related to UTI/AMTTHEW, continue to treat infection, then repeat UA, serologies will be added Blood cultures growing E. coli Influenza A, B, RSV, Covid were negative. BNP was 27,000 CBC, basic metabolic panel, magnesium ordered for tomorrow Reduce ceftriaxone from 2 g to 1 g every 24 hours Follow up urine culture, pending Normal saline at 75 mL per hour was discontinued Lasix 40 mg IV daily Continue home sertraline Patient is DO NOT RESUSCITATE/DO NOT INTUBATE DVT prophylaxis with heparin 3 times a day Objective - Vital Signs Vital signs: Vital Signs Temp 98.2 F 01/14/23 12:00 Pulse 82 01/14/23 12:00 Resp 16 01/14/23 12:00 BP 144/80 01/14/23 12:00 Pulse Ox 97 01/14/23 12:00 FiO2 Intake & Output 01/13/23 01/14/23 01/14/23 18:59 06:59 18:59 Weight 83.915 kg 83.915 kg Other: Voiding Method Diaper Diaper Incontinent Incontinent # Voids 2 - Labs CBC & Chem 7: 01/14/23 06:43 01/14/23 06:43 Labs: Abnormal Lab Results - Last 24 Hours (Table) 01/13/23 01/13/23 01/13/23 Range/Units 13:37 13:37 13:37 Hgb 10.9 L (11.4-16.0) gm/dL Hct 33.2 L (34.0-46.0) % MCHC (31.0-37.0) g/dL RDW 15.9 H (11.5-15.5) % Plt Count 101 L (150-450) k/uL Lymphocytes # 0.1 L (1.0-4.8) k/uL Sodium 133 L (137-145) mmol/L Carbon Dioxide 21 L (22-30) mmol/L BUN 62 H (7-17) mg/dL Creatinine 2.09 H (0.52-1.04) mg/dL Glucose 119 H (74-99) mg/dL Calcium 8.1 L (8.4-10.2) mg/dL Troponin I (0.000-0.034) ng/mL Total Protein 5.3 L (6.3-8.2) g/dL Albumin 2.8 L (3.5-5.0) g/dL Urine Appearance Turbid H (Clear) Urine Protein 3+ H (Negative) Urine Glucose (UA) Trace H (Negative) Urine Ketones Trace H (Negative) Urine Blood Large H (Negative) Ur Leukocyte Esterase Large H (Negative) Urine RBC 38 H (0-5) /hpf Urine WBC >182 H (0-5) /hpf Urine WBC Clumps Many H (None) /hpf Ur Squamous Epith Cells 5 H (0-4) /hpf Urine Bacteria Many H (None) /hpf U Random Total Protein (0.0-13.5) mg/dL 01/13/23 01/13/23 01/13/23 Range/Units 13:37 16:39 19:29 Hgb (11.4-16.0) gm/dL Hct (34.0-46.0) % MCHC (31.0-37.0) g/dL RDW (11.5-15.5) % Plt Count (150-450) k/uL Lymphocytes # (1.0-4.8) k/uL Sodium (137-145) mmol/L Carbon Dioxide (22-30) mmol/L BUN (7-17) mg/dL Creatinine (0.52-1.04) mg/dL Glucose (74-99) mg/dL Calcium (8.4-10.2) mg/dL Troponin I 0.066 H* 0.155 H* (0.000-0.034) ng/mL Total Protein (6.3-8.2) g/dL Albumin (3.5-5.0) g/dL Urine Appearance (Clear) Urine Protein (Negative) Urine Glucose (UA) (Negative) Urine Ketones (Negative) Urine Blood (Negative) Ur Leukocyte Esterase (Negative) Urine RBC (0-5) /hpf Urine WBC (0-5) /hpf Urine WBC Clumps (None) /hpf Ur Squamous Epith Cells (0-4) /hpf Urine Bacteria (None) /hpf U Random Total Protein >600.0 H (0.0-13.5) mg/dL 01/14/23 01/14/23 01/14/23 Range/Units 06:43 06:43 10:16 Hgb 10.9 L (11.4-16.0) gm/dL Hct (34.0-46.0) % MCHC 30.7 L (31.0-37.0) g/dL RDW 15.8 H (11.5-15.5) % Plt Count 95 L (150-450) k/uL Lymphocytes # 0.2 L (1.0-4.8) k/uL Sodium 136 L (137-145) mmol/L Carbon Dioxide (22-30) mmol/L BUN 65 H (7-17) mg/dL Creatinine 2.79 H (0.52-1.04) mg/dL Glucose (74-99) mg/dL Calcium 8.1 L (8.4-10.2) mg/dL Troponin I 0.224 H* (0.000-0.034) ng/mL Total Protein (6.3-8.2) g/dL Albumin (3.5-5.0) g/dL Urine Appearance (Clear) Urine Protein (Negative) Urine Glucose (UA) (Negative) Urine Ketones (Negative) Urine Blood (Negative) Ur Leukocyte Esterase (Negative) Urine RBC (0-5) /hpf Urine WBC (0-5) /hpf Urine WBC Clumps (None) /hpf Ur Squamous Epith Cells (0-4) /hpf Urine Bacteria (None) /hpf U Random Total Protein (0.0-13.5) mg/dL Microbiology - Last 24 Hours (Table) 01/13/23 13:50 Blood Culture Gram Stain - Preliminary Blood Blood Culture - Preliminary Escherichia coli
[2023-01-14 16:16] LABS: Chol/HDL Ratio 6.76 Ratio; LDL Cholesterol,Calculated 102.4 mg/dL (0.0-131.0)
[2023-01-14 16:29] LABS: Hepatitis A Antibody IgM Nonreactive (Nonreactive); Hepatitis B Core IgM Nonreactive (Nonreactive); Hepatitis C IgG Antibody Nonreactive (Nonreactive)
[2023-01-14 16:52] LABS: Protein, Total 4.8 g/dL (6.2-8.2)
[2023-01-14 17:02] LABS: Anti-DNA, DS unit <1.0 IU/mL; DNA Double-Stranded NEGATIVE (NEGATIVE)
--- NOTE | 2023-01-14 17:55 | CA ---
Transthoracic Echo Report Name: Cynthia Bowden Age: 77 Gender: F : 1945 Exam Date: 01/14/2023 13:58 Exam Location: [place] [facility] Ht (in): 65 Wt (lb): 185 Ordering Physician: Jose Alfredo Rutledge MD Attending/Referring Phys: Pet Stylist Stacy Arroyo RDCS Procedure CPT: Indications: cardiomyopathy Cardiac Hx: Technical Quality: Very technically difficult study Contrast 1: Total Dose (mL): Contrast 2: Total Dose (mL): MEASUREMENTS (Male / Female) Normal Values 2D ECHO LV Diastolic Diameter PLAX 5.0 cm 4.2 - 5.9 / 3.9 - 5.3 cm LV Systolic Diameter PLAX 4.1 cm IVS Diastolic Thickness 2.1 cm 0.6 - 1.0 / 0.6 - 0.9 cm LVPW Diastolic Thickness 1.5 cm 0.6 - 1.0 / 0.6 - 0.9 cm LV Relative Wall Thickness 0.7 FINDINGS Left Ventricle Left ventricular ejection fraction is estimated at 55-60 %. Left ventricular cavity size normal. Severe concentric left ventricular hypertrophy. Right Ventricle Right ventricular dilatation. Right Atrium Right atrium not well visualized. Left Atrium Left atrium not well visualized. Mitral Valve Mild mitral annular calcification. Aortic Valve Aortic valve not well visualized. Tricuspid Valve Tricuspid valve not well visualized. Pulmonic Valve Pulmonic valve not well visualized. Pericardium Minimal pericardial effusion (normal variant). Aorta Aortic root and proximal ascending aorta not well visualized. CONCLUSIONS 1. Left ventricle systolic function appears to be normal 2. Valvular structures could not be well-visualized Lumason ECHO contrast used for improved visualization of the endocardial borders (inadequate visualization of two or more contiguous segments). Technically difficult study. Previewed by: Dr. Elyse Garvey MD (Electronically Signed) Final Date: 14 Jan 2023 17:54
[2023-01-14 18:01] LABS: Hepatitis B Surface Antigen Nonreactive (Nonreactive)
--- NOTE | 2023-01-15 08:01 | XR ---
EXAMINATION TYPE: XR chest 1V portable DATE OF EXAM: 01/15/2023 7:46 AM COMPARISON: Chest radiographs from 01/13/2023. TECHNIQUE: XR chest 1V portable Frontal view of the chest. CLINICAL INDICATION:Female, 77 years old with history of hypoxia; FINDINGS: Lungs/Pleura: Bilateral breast implants No evidence of focal consolidation or pneumothorax. Blunting of the costophrenic angles is present. Pulmonary vascularity: Pulmonary vascular congestion. Heart/mediastinum: Cardiomediastinal silhouette is enlarged and stable. Musculoskeletal: No acute osseous pathology. IMPRESSION: Cardiomegaly, pulmonary vascular congestion and bilateral pleural effusions. Correlate with BNP for c ongestive heart failure.
[2023-01-15] MEDS: ASPIRIN 81 MG PO SCH (08:18)
[2023-01-15] MEDS: METOPROLOL SUCCINATE (ER) 50 MG TAB.ER.24H PO SCH (08:18)
[2023-01-15] MEDS: SERTRALINE 100 MG TAB PO SCH (08:18)
[2023-01-15] MEDS: FUROSEMIDE 10 MG/ML 4 ML VIAL IV SCH ×2 (08:18→20:55)
[2023-01-15] MEDS: amLODIPine 5 MG TAB PO SCH (08:34)
--- NOTE | 2023-01-15 08:43 | P.PN ---
Subjective Progress Note Date: 01/15/23 No new complaints today. Gen: awake, alert HEENT: normocephalic, atraumatic, good hearing acuity, moist mucous membranes Resp: good air exchange, breathing comfortably with no accessory muscle use CVS: good distal perfusion x 4, GI: soft, NTTP, ND : no SPT, no CVAT, wahl catheter not present MSK: Bilateral pitting edema, no clubbing Neuro: non-focal, moving all extremities Psych: cooperative, euthymic mood Hospital course: 77-year-old woman with medical history of hypertension, depression presented for generalized weakness and confusion. In the emergency room, patient was noted to have a temperature of 99.8, 100/88, heart rate 123, 87% on room air. She was placed on 4 L nasal cannula and saturating 93%. CBC demonstrated anemia down to 10.9, thrombocytopenia to 101. Basic metabolic panel shows sodium of 133, CO2 of 21, BUN of 62, creatinine 2.1, baseline creatinine is noted to be 1.5 from October 2022. Liver function tests showed low total albumin of 2.8, low total protein of 5.3. Troponin was 0.066. Coags are unremarkable. UA showed 3+ protein, trace glucose, trace ketones, large blood, large leukocyte esterase, 30 red blood cells, greater than 182 white blood cells, but was contaminated with 5 squamous epithelial cells. Urine tox screen is negative. EKG demonstrated s inus tachycardia with left axis deviation, T-wave inversions in leads 1, aVL, V2; there are frequent premature supraventricular complexes. Chest x-ray shows hyperinflation suggestive of COPD, previous implant surgery, but no pneumothorax, pleural effusion, focal pneumonia. Case was discussed with the emergency room provider and decision was made to admit the patient for further evaluation. Assessment: Metabolic encephalopathy secondary to sepsis Complicated urinary tract infection E. coli bacteremia Acute congestive heart failure, diastolic Acute kidney injury superimposed on chronic kidney disease stage III Acute hypoxemic respiratory failure Generalized weakness Elevated troponin Hypertension Plan: Today, patient is afebrile, 178/74, 76, 96% on 2L NC TILA negative, Anti-ds-DNA negative, C3 141, C4 38 Chest x-ray from 01/15 was personally reviewed by me, appears to have evidence of volume overload with bilateral congestion, left atrial enlargement of the heart, cardiomegaly, and pleural effusions CBC, basic metabolic panel, magnesium ordered for tomorrow Continue ceftriaxone 1 g every 24 hours Follow up urine culture, pending Normal saline at 75 mL per hour was discontinued Lasix 40 mg IV daily Continue home sertraline Patient is DO NOT RESUSCITATE/DO NOT INTUBATE DVT prophylaxis with heparin 3 times a day Objective - Vital Signs Vital signs: Vital Signs Temp 98.1 F 01/15/23 08:00 Pulse 76 01/15/23 08:00 Resp 18 01/15/23 08:00 BP 178/74 01/15/23 08:00 Pulse Ox 97 01/15/23 08:03 FiO2 Intake & Output 01/14/23 01/15/23 01/15/23 18:59 06:59 18:59 Intake Total 240 Output Total 800 Balance 240 -800 Weight 83.915 kg 109.5 kg Intake: Oral 240 Output: Urine 800 Other: Voiding Method Diaper Diaper Incontinent Incontinent - Labs CBC & Chem 7: 01/14/23 06:43 01/14/23 06:43 Labs: Abnormal Lab Results - Last 24 Hours (Table) 01/14/23 01/14/23 01/14/23 Range/Units 06:43 06:43 10:16 Plt Count 95 L (150-450) k/uL Lymphocytes # 0.2 L (1.0-4.8) k/uL Troponin I 0.224 H* (0.000-0.034) ng/mL Total Protein (PEP) (6.2-8.2) g/dL Triglycerides 242.00 H (0.00-149.00) mg/dL VLDL Cholesterol, Calc 48.40 H (5.00-40.00) mg/dL HDL Cholesterol 26.20 L (40.00-60.00) mg/dL 01/14/23 Range/Units 11:23 Plt Count (150-450) k/uL Lymphocytes # (1.0-4.8) k/uL Troponin I (0.000-0.034) ng/mL Total Protein (PEP) 4.8 L (6.2-8.2) g/dL Triglycerides (0.00-149.00) mg/dL VLDL Cholesterol, Calc (5.00-40.00) mg/dL HDL Cholesterol (40.00-60.00) mg/dL Microbiology - Last 24 Hours (Table) 01/13/23 13:50 Blood Culture Gram Stain - Preliminary Blood Blood Culture - Preliminary Escherichia coli
[2023-01-15 11:34] LABS: Basophils % (A) 0 %; Eosinophils # (A) 0.1 k/uL (0-0.7); Eosinophils % (A) 1 %; HCT 33.8 % (34.0-46.0); HGB 10.6 gm/dL (11.4-16.0); Hypochromasia Moderate; Lymphocytes # (A) 0.3 k/uL (1.0-4.8); Lymphocytes % (A) 4 %; MCH 27.2 pg (25.0-35.0); MCHC 31.4 g/dL (31.0-37.0); MCV 86.6 fL (80.0-100.0); Mean Platelet Volume 8.1; Monocytes # (A) 0.6 k/uL (0-1.0); Monocytes % (A) 8 %; Neutrophils # (A) 5.7 k/uL (1.3-7.7); Neutrophils % (A) 84 %; Platelet Count 107 k/uL (150-450); RDW 15.6 % (11.5-15.5); WBC 6.8 k/uL (3.8-10.6)
--- NOTE | 2023-01-15 11:39 | P.PN ---
Subjective Progress Note Date: 01/15/23 HISTORY OF PRESENT ILLNESS: This is a 77-year-old female with a past medical history significant for hypertension and depression. Patient does not follow with a locum tenens. We have been asked to see the patient in consultation for congestive heart failure. Patient examined at the bedside. Patient is somewhat of a poor historian upon evaluation. The patient states that she came into the hospital because she was feeling weak at home. She reports that she was having shaking movements of her hands and the rest of her body. She reports feeling confused at home. The patient was found to have a urinary tract infection and was started on antibiotics. The patient was also found to be in congestive heart failure and was started on IV Lasix. The patient currently denies chest pain or pressure. She denies shortness of breath. Vital signs are stable. * EKG reveals sinus mechanism with T-wave inversions in lead 1 and aVL. LVH. * Chest xray negative for acute process * Laboratory data: WBC 6.7. Hemoglobin 10.9. Platelet count 95. Sodium 136. Potassium 4.2. BUN 65. Creatinine 2.79. Troponin 0.066. 0.155. ProBNP 27,700. * Current home cardiac medications include metoprolol succinate 50 mg daily * No previous echocardiogram available for review 01/15/2023 Patient examined this morning at the bedside. Patient denies chest pain or pressure. She denies shortness of breath. She remains on IV Lasix 40 mg daily. Patient's blood pressure is elevated this morning with a systolic in the 180s. Echocardiogram completed revealing ejection fraction 55-60%. Valvular structures were unable to be seen. Repeat chest x-ray this morning reveals card and megaly, pulmonary vascular congestion and bilateral pleural effusions. PHYSICAL EXAM: VITAL SIGNS: Reviewed. GENERAL: Well-developed in no acute distress. HEENT: Head is normocephalic. Pupils are equal, round. Sclerae anicteric. Mucous membranes of the mouth are moist. Neck supple. No JVD or thyromegaly LUNGS: Respirations even and unlabored. Lungs essentially clear to auscultation bilaterally, diminished.. HEART: Regular rate and rhythm. S1 and S2 heard. Systolic murmur noted ABDOMEN: Soft. Nondistended. Nontender. EXTREMITIES: Normal range of motion. No clubbing or cyanosis. Peripheral pulses intact. Trace lower extremity edema NEUROLOGIC: Awake and alert. Oriented x 3. ASSESSMENT: Altered mental status Generalized weakness Urinary tract infection E. coli bacteremia Acute congestive heart failure with preserved ejection fraction Acute on chronic kidney disease Abnormal troponins, suspect secondary to above History of hypertension History of depression PLAN: Continue current cardiac medications Continue Lasix 40 mg IV daily Daily weights, accurate I&O, and monitoring of kidney function Add Norvasc 5 mg daily for optimal blood pressure control Further recommendations pending patient's course Nurse practitioner note has been reviewed by physician. Signing provider agrees with the documented findings, assessment, and plan of care. Objective - Vital Signs Vital signs: Vital Signs Temp 98.1 F 01/15/23 08:00 Pulse 76 01/15/23 08:00 Resp 18 01/15/23 08:00 BP 178/74 01/15/23 08:00 Pulse Ox 97 01/15/23 08:03 FiO2 Intake & Output 01/14/23 01/15/23 01/15/23 18:59 06:59 18:59 Intake Total 240 Output Total 800 Balance 240 -800 Weight 83.915 kg 109.5 kg Intake: Oral 240 Output: Urine 800 Other: Voiding Method Diaper Diaper Diaper Incontinent Incontinent Incontinent - Labs CBC & Chem 7: 01/15/23 09:16 01/14/23 06:43 Labs: Abnormal Lab Results - Last 24 Hours (Table) 01/14/23 01/14/23 01/14/23 Range/Units 06:43 10:16 11:23 Hgb (11.4-16.0) gm/dL Hct (34.0-46.0) % RDW (11.5-15.5) % Plt Count (150-450) k/uL Lymphocytes # (1.0-4.8) k/uL Troponin I 0.224 H* (0.000-0.034) ng/mL Total Protein (PEP) 4.8 L (6.2-8.2) g/dL Triglycerides 242.00 H (0.00-149.00) mg/dL VLDL Cholesterol, Calc 48.40 H (5.00-40.00) mg/dL HDL Cholesterol 26.20 L (40.00-60.00) mg/dL 01/15/23 Range/Units 09:16 Hgb 10.6 L (11.4-16.0) gm/dL Hct 33.8 L (34.0-46.0) % RDW 15.6 H (11.5-15.5) % Plt Count 107 L (150-450) k/uL Lymphocytes # 0.3 L (1.0-4.8) k/uL Troponin I (0.000-0.034) ng/mL Total Protein (PEP) (6.2-8.2) g/dL Triglycerides (0.00-149.00) mg/dL VLDL Cholesterol, Calc (5.00-40.00) mg/dL HDL Cholesterol (40.00-60.00) mg/dL Microbiology - Last 24 Hours (Table) 01/13/23 13:50 Blood Culture Gram Stain - Preliminary Blood Blood Culture - Preliminary Escherichia coli 01/13/23 12:55 Blood Culture - Preliminary Blood
[2023-01-15 11:47] LABS: Potassium 3.7 mmol/L (3.5-5.1)
[2023-01-15 11:48] LABS: Magnesium 1.7 mg/dL (1.6-2.3)
--- NOTE | 2023-01-15 11:49 | P.PN ---
Subjective Patient is seen for follow-up for acute kidney injury. She was admitted to the hospital with mental status changes and sepsis with UTI. Blood cultures are growing E. coli. Patient was maintained on IV fluids which were discontinued secondary to volume overload. Currently maintained on IV Lasix. No significant complaints today. Labs are pending from today. Blood pressure is not low, in fact it is on the high side. Objective - Vital Signs Vital signs: Vital Signs Temp 98.1 F 01/15/23 08:00 Pulse 76 01/15/23 08:00 Resp 18 01/15/23 08:00 BP 178/74 01/15/23 08:00 Pulse Ox 97 01/15/23 08:03 FiO2 Intake & Output 01/14/23 01/15/23 01/15/23 18:59 06:59 18:59 Intake Total 240 Output Total 800 Balance 240 -800 Weight 83.915 kg 109.5 kg Intake: Oral 240 Output: Urine 800 Other: Voiding Method Diaper Diaper Diaper Incontinent Incontinent Incontinent - Exam Awake, comfortable, mildly short of breath. 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 - Labs CBC & Chem 7: 01/15/23 09:16 01/14/23 06:43 Labs: Abnormal Lab Results - Last 24 Hours (Table) 01/14/23 01/14/23 01/14/23 Range/Units 06:43 10:16 11:23 Hgb (11.4-16.0) gm/dL Hct (34.0-46.0) % RDW (11.5-15.5) % Plt Count (150-450) k/uL Lymphocytes # (1.0-4.8) k/uL Troponin I 0.224 H* (0.000-0.034) ng/mL Total Protein (PEP) 4.8 L (6.2-8.2) g/dL Triglycerides 242.00 H (0.00-149.00) mg/dL VLDL Cholesterol, Calc 48.40 H (5.00-40.00) mg/dL HDL Cholesterol 26.20 L (40.00-60.00) mg/dL 01/15/23 Range/Units 09:16 Hgb 10.6 L (11.4-16.0) gm/dL Hct 33.8 L (34.0-46.0) % RDW 15.6 H (11.5-15.5) % Plt Count 107 L (150-450) k/uL Lymphocytes # 0.3 L (1.0-4.8) k/uL Troponin I (0.000-0.034) ng/mL Total Protein (PEP) (6.2-8.2) g/dL Triglycerides (0.00-149.00) mg/dL VLDL Cholesterol, Calc (5.00-40.00) mg/dL HDL Cholesterol (40.00-60.00) mg/dL Microbiology - Last 24 Hours (Table) 01/13/23 13:50 Blood Culture Gram Stain - Preliminary Blood Blood Culture - Preliminary Escherichia coli 01/13/23 12:55 Blood Culture - Preliminary Blood Assessment and Plan Assessment: 1. Acute kidney injury secondary to ATN secondary to severe sepsis and cardio renal syndrome. Creatinine 2.79 yesterday. Labs pending from today. 2. Chronic kidney disease stage IIIB with creatinine 1.5 in October 2022. 3. Proteinuria. 3+ protein noted on UA however this was done in the setting of acute kidney injury and UTI. 4. Volume overload. 5. E. coli bacteremia with likely source being UTI. On IV antibiotics. Plan: Increase Lasix to twice a day Repeat labs again in a.m. Follow-up on labs from today Check post void scan and rule out urine retention.
[2023-01-16 06:08] LABS: Basophils % (A) 0 %; Eosinophils # (A) 0.1 k/uL (0-0.7); Eosinophils % (A) 1 %; HCT 33.6 % (34.0-46.0); HGB 10.8 gm/dL (11.4-16.0); Hypochromasia Slight; Lymphocytes # (A) 0.4 k/uL (1.0-4.8); Lymphocytes % (A) 5 %; MCH 26.6 pg (25.0-35.0); MCHC 32.3 g/dL (31.0-37.0); MCV 82.5 fL (80.0-100.0); Mean Platelet Volume 7.8; Monocytes # (A) 0.5 k/uL (0-1.0); Monocytes % (A) 7 %; Neutrophils # (A) 6.1 k/uL (1.3-7.7); Neutrophils % (A) 84 %; Platelet Count 119 k/uL (150-450); Poikilocytosis Slight; RBC 4.07 m/uL (3.80-5.40); RDW 15.5 % (11.5-15.5); WBC 7.3 k/uL (3.8-10.6)
[2023-01-16 06:18] LABS: Calcium 8.4 mg/dL (8.4-10.2); Magnesium 1.9 mg/dL (1.6-2.3); Potassium 4.2 mmol/L (3.5-5.1)
[2023-01-16] MEDS: ASPIRIN 81 MG PO SCH (08:52)
[2023-01-16] MEDS: METOPROLOL SUCCINATE (ER) 50 MG TAB.ER.24H PO SCH (08:52)
[2023-01-16] MEDS: amLODIPine 5 MG TAB PO SCH ×2 (08:52→17:05)
[2023-01-16] MEDS: FUROSEMIDE 10 MG/ML 4 ML VIAL IV SCH ×2 (08:52→20:25)
[2023-01-16] MEDS: SERTRALINE 100 MG TAB PO SCH (08:52)
--- NOTE | 2023-01-16 11:14 | P.PN ---
Subjective Patient is seen for follow-up for acute kidney injury. She was admitted to the hospital with mental status changes and sepsis with UTI. Blood cultures are growing E. coli. Patient was maintained on IV fluids which were discontinued secondary to volume overload. Currently maintained on IV Lasix. No significant complaints today. Serum creatinine slightly increased to 2.9. All serologies are negative Blood pressure remains high Post void residual was elevated at more than 300 yesterday. I'm not sure if this was repeated. Objective - Vital Signs Vital signs: Vital Signs Temp 98.0 F 01/16/23 08:00 Pulse 71 01/16/23 08:00 Resp 18 01/16/23 08:00 BP 187/83 01/16/23 08:00 Pulse Ox 96 01/16/23 08:00 FiO2 Intake & Output 01/15/23 01/16/23 01/16/23 18:59 06:59 18:59 Intake Total 0 Output Total 1600 Balance -1600 0 Intake: Oral 0 Output: Urine 1600 Other: Voiding Method Diaper Diaper Diaper Incontinent Incontinent Incontinent - Exam Sleeping but arousable comfortable, No acute distress Examination of the heart S1 and S2 Examination of the lungs B breath sounds are heard Abdomen is soft nontender Examination of lower extremities shows trace edema bilaterally 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 - Labs CBC & Chem 7: 01/16/23 05:45 01/16/23 05:45 Labs: Abnormal Lab Results - Last 24 Hours (Table) 01/15/23 01/15/23 01/16/23 Range/Units 09:16 09:16 05:45 Hgb 10.6 L 10.8 L (11.4-16.0) gm/dL Hct 33.8 L 33.6 L (34.0-46.0) % RDW 15.6 H (11.5-15.5) % Plt Count 107 L 119 L (150-450) k/uL Lymphocytes # 0.3 L 0.4 L (1.0-4.8) k/uL BUN 74 H (7-17) mg/dL Creatinine 2.83 H (0.52-1.04) mg/dL Glucose 108 H (74-99) mg/dL Calcium 8.0 L (8.4-10.2) mg/dL 01/16/23 Range/Units 05:45 Hgb (11.4-16.0) gm/dL Hct (34.0-46.0) % RDW (11.5-15.5) % Plt Count (150-450) k/uL Lymphocytes # (1.0-4.8) k/uL BUN 74 H (7-17) mg/dL Creatinine 2.91 H (0.52-1.04) mg/dL Glucose 107 H (74-99) mg/dL Calcium (8.4-10.2) mg/dL Microbiology - Last 24 Hours (Table) 01/13/23 13:50 Blood Culture Gram Stain - Final Blood Blood Culture - Final Escherichia coli 01/13/23 12:55 Blood Culture - Preliminary Blood Assessment and Plan Assessment: 1. Acute kidney injury secondary to ATN secondary to severe sepsis and c ardiorenal syndrome. Creatinine 2.79 yesterday. Creatinine slightly higher at 2.9. Patient did have urine retention. A post void scan showed more than 300 mL yesterday. I'm not sure this was repeated. 2. Chronic kidney disease stage IIIB with creatinine 1.5 in October 2022. 3. Proteinuria. 3+ protein noted on UA however this was done in the setting of acute kidney injury and UTI. 4. Volume overload. 5. E. coli bacteremia with likely source being UTI. On IV antibiotics. Plan: Continue with current dose of Lasix Repeat bladder scan and consider Montilla catheter placement if post void residual remains elevated. Repeat labs again in a.m.
--- NOTE | 2023-01-16 12:14 | P.PN ---
Subjective Progress Note Date: 01/16/23 No new complaints today. Gen: awake, alert HEENT: normocephalic, atraumatic, good hearing acuity, moist mucous membranes Resp: good air exchange, breathing comfortably with no accessory muscle use CVS: good distal perfusion x 4, GI: soft, NTTP, ND : no SPT, no CVAT, wahl catheter not present MSK: Bilateral pitting edema, no clubbing Neuro: non-focal, moving all extremities Psych: cooperative, euthymic mood Hospital course: 77-year-old woman with medical history of hypertension, depression presented for generalized weakness and confusion. In the emergency room, patient was noted to have a temperature of 99.8, 100/88, heart rate 123, 87% on room air. She was placed on 4 L nasal cannula and saturating 93%. CBC demonstrated anemia down to 10.9, thrombocytopenia to 101. Basic metabolic panel shows sodium of 133, CO2 of 21, BUN of 62, creatinine 2.1, baseline creatinine is noted to be 1.5 from October 2022. Liver function tests showed low total albumin of 2.8, low total protein of 5.3. Troponin was 0.066. Coags are unremarkable. UA showed 3+ protein, trace glucose, trace ketones, large blood, large leukocyte esterase, 30 red blood cells, greater than 182 white blood cells, but was contaminated with 5 squamous epithelial cells. Urine tox screen is negative. EKG demonstrated s inus tachycardia with left axis deviation, T-wave inversions in leads 1, aVL, V2; there are frequent premature supraventricular complexes. Chest x-ray shows hyperinflation suggestive of COPD, previous implant surgery, but no pneumothorax, pleural effusion, focal pneumonia. Case was discussed with the emergency room provider and decision was made to admit the patient for further evaluation. Assessment: Metabolic encephalopathy secondary to sepsis Complicated urinary tract infection E. coli bacteremia Acute congestive heart failure, diastolic Acute kidney injury superimposed on chronic kidney disease stage III Acute hypoxemic respiratory failure Generalized weakness Elevated troponin Hypertension Plan: Today, patient is afebrile, 187/83, heart rate 71, 96% on 2 L nasal cannula Hemoglobin is 10.8, platelets are 119 BUN is 74, creatinine is 2.91 CBC, basic metabolic panel, magnesium ordered for tomorrow Continue ceftriaxone 1 g every 24 hours Follow up urine culture, pending Normal saline at 75 mL per hour was discontinued Lasix 40 mg IV daily Continue home sertraline Patient is DO NOT RESUSCITATE/DO NOT INTUBATE DVT prophylaxis with heparin 3 times a day Objective - Vital Signs Vital signs: Vital Signs Temp 98.0 F 01/16/23 08:00 Pulse 71 01/16/23 08:00 Resp 18 01/16/23 08:00 BP 187/83 01/16/23 08:00 Pulse Ox 97 01/16/23 12:11 FiO2 Intake & Output 01/15/23 01/16/23 01/16/23 18:59 06:59 18:59 Intake Total 0 Output Total 1600 Balance -1600 0 Intake: Oral 0 Output: Urine 1600 Other: Voiding Method Diaper Diaper Diaper Incontinent Incontinent Incontinent - Labs CBC & Chem 7: 01/16/23 05:45 01/16/23 05:45 Labs: Abnormal Lab Results - Last 24 Hours (Table) 01/16/23 01/16/23 Range/Units 05:45 05:45 Hgb 10.8 L (11.4-16.0) gm/dL Hct 33.6 L (34.0-46.0) % Plt Count 119 L (150-450) k/uL Lymphocytes # 0.4 L (1.0-4.8) k/uL BUN 74 H (7-17) mg/dL Creatinine 2.91 H (0.52-1.04) mg/dL Glucose 107 H (74-99) mg/dL Microbiology - Last 24 Hours (Table) 01/13/23 13:50 Blood Culture Gram Stain - Final Blood Blood Culture - Final Escherichia coli 01/13/23 12:55 Blood Culture - Preliminary Blood
[2023-01-16] MEDS ORDERED: hydrALAZINE HCL 25 MG TAB PO STA (13:12)
--- NOTE | 2023-01-16 13:13 | P.PN ---
Subjective Progress Note Date: 01/16/23 This is a 77-year-old female with a past medical history significant for hypertension and depression. 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 We have been asked to see the patient in consultation for congestive heart failure. Patient examined at the bedside. Patient is somewhat of a poor historian upon evaluation. The patient states that she came into the hospital because she was feeling weak at home. She reports that she was having shaking movements of her hands and the rest of her body. She reports feeling confused at home. The patient was found to have a urinary tract infection and was started on antibiotics. The patient was also found to be in congestive heart failure and w as started on IV Lasix. The patient currently denies chest pain or pressure. She denies shortness of breath. Vital signs are stable. * EKG reveals sinus mechanism with T-wave inversions in lead 1 and aVL. LVH. * Chest xray negative for acute process * Laboratory data: WBC 6.7. Hemoglobin 10.9. Platelet count 95. Sodium 136. Potassium 4.2. BUN 65. Creatinine 2.79. Troponin 0.066. 0.155. ProBNP 27,700. * Current home cardiac medications include metoprolol succinate 50 mg daily * No previous echocardiogram available for review 01/16/2023 Echocardiogram with Doppler completed yesterday showed ejection fraction of 55 to 60% with poor visualization of the valves. Amlodipine was added just today for blood pressure control and blood pressure remains elevated. Patient continues to have minimal lower extremity edema that appears to be improving. Renal function is worse with a BUN 74 and creatinine 2.91. Nephrology is following. Objective - Vital Signs Vital signs: Vital Signs Temp 98.0 F 01/16/23 08:00 Pulse 74 01/16/23 12:00 Resp 18 01/16/23 12:00 BP 177/69 01/16/23 12:00 Pulse Ox 97 01/16/23 12:11 FiO2 Intake & Output 01/15/23 01/16/23 01/16/23 18:59 06:59 18:59 Intake Total 0 Output Total 1600 Balance -1600 0 Intake: Oral 0 Output: Urine 1600 Other: Voiding Method Diaper Diaper Diaper Incontinent Incontinent Incontinent - Exam GENERAL: Well-developed in no acute distress. HEENT: Head is normocephalic. Pupils are equal, round. Sclerae anicteric. Mucous membranes of the mouth are moist. Neck supple. No JVD or thyromegaly LUNGS: Respirations even and unlabored. Lungs essentially clear to auscultation bilaterally, diminished.. HEART: Regular rate and rhythm. S1 and S2 heard. Systolic murmur noted ABDOMEN: Soft. Nondistended. Nontender. EXTREMITIES: Normal range of motion. No clubbing or cyanosis. Peripheral pulses intact. Trace lower extremity edema - Labs CBC & Chem 7: 01/16/23 05:45 01/16/23 05:45 Labs: Abnormal Lab Results - Last 24 Hours (Table) 01/16/23 01/16/23 Range/Units 05:45 05:45 Hgb 10.8 L (11.4-16.0) gm/dL Hct 33.6 L (34.0-46.0) % Plt Count 119 L (150-450) k/uL Lymphocytes # 0.4 L (1.0-4.8) k/uL BUN 74 H (7-17) mg/dL Creatinine 2.91 H (0.52-1.04) mg/dL Glucose 107 H (74-99) mg/dL Microbiology - Last 24 Hours (Table) 01/13/23 13:50 Blood Culture Gram Stain - Final Blood Blood Culture - Final Escherichia coli 01/13/23 12:55 Blood Culture - Preliminary Blood Assessment and Plan Assessment: Altered mental status Generalized weakness Urinary tract infection E. coli bacteremia Acute congestive heart failure with preserved ejection fraction Acute on chronic kidney disease Abnormal troponins, suspect secondary to above History of hypertension History of depression Plan: From cardiology perspective will continue amlodipine. We will add hydralazine for better blood pressure control. Diuretics per nephrology. We will continue to follow the patient provide further recommendations accordingly. 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 Patient was seen and examined.
[2023-01-16] MEDS ORDERED: hydrALAZINE HCL 25 MG TAB PO SCH (21:00)
[2023-01-17 07:45] LABS: Basophils % (A) 1 %; Eosinophils # (A) 0.1 k/uL (0-0.7); Eosinophils % (A) 1 %; HCT 34.1 % (34.0-46.0); HGB 10.8 gm/dL (11.4-16.0); Lymphocytes # (A) 0.4 k/uL (1.0-4.8); Lymphocytes % (A) 6 %; MCH 26.1 pg (25.0-35.0); MCHC 31.7 g/dL (31.0-37.0); MCV 82.5 fL (80.0-100.0); Mean Platelet Volume 7.6; Monocytes # (A) 0.3 k/uL (0-1.0); Monocytes % (A) 4 %; Neutrophils # (A) 6.1 k/uL (1.3-7.7); Neutrophils % (A) 84 %; Platelet Count 147 k/uL (150-450); Poikilocytosis Slight; RBC 4.13 m/uL (3.80-5.40); RDW 15.3 % (11.5-15.5); WBC 7.3 k/uL (3.8-10.6)
[2023-01-17 08:19] LABS: Calcium 8.3 mg/dL (8.4-10.2); Magnesium 1.6 mg/dL (1.6-2.3); Potassium 3.4 mmol/L (3.5-5.1)
[2023-01-17] MEDS ORDERED: hydrALAZINE HCL 25 MG TAB PO STA (08:56)
[2023-01-17] MEDS: ASPIRIN 81 MG PO SCH (09:12)
[2023-01-17] MEDS: METOPROLOL SUCCINATE (ER) 50 MG TAB.ER.24H PO SCH (09:12)
[2023-01-17] MEDS: hydrALAZINE HCL 50 MG TAB PO SCH ×3 (09:12→20:50)
[2023-01-17] MEDS: amLODIPine 5 MG TAB PO SCH ×2 (09:12→20:50)
[2023-01-17] MEDS: SERTRALINE 100 MG TAB PO SCH (09:12)
[2023-01-17] MEDS: FUROSEMIDE 10 MG/ML 4 ML VIAL IV SCH ×2 (09:13→20:50)
--- NOTE | 2023-01-17 11:13 | P.PN ---
Subjective Patient is seen for follow-up for acute kidney injury. She was admitted to the hospital with mental status changes and sepsis with UTI. Blood cultures are growing E. coli. Patient was maintained on IV fluids which were discontinued secondary to volume overload. Currently maintained on IV Lasix. No significant complaints today. Serum creatinine decreased to 2.5 today. All serologies are negative Blood pressure remains high Post void residual was initially around 300 but repeat was less than 50ml. Remains on Lasix 40 mg IV twice a day. Objective - Vital Signs Vital signs: Vital Signs Temp 98.6 F 01/17/23 09:01 Pulse 81 01/17/23 09:01 Resp 18 01/17/23 09:01 BP 162/71 01/17/23 09:01 Pulse Ox 93 L 01/17/23 09:01 FiO2 Intake & Output 01/16/23 01/17/23 01/17/23 18:59 06:59 18:59 Intake Total 90 540 540 Output Total 1650 1750 Balance -1560 -1210 540 Weight 98.5 kg Intake: Oral 90 540 540 Output: Urine 1650 1750 Post Void Residual 0 Other: Voiding Method Diaper Diaper Incontinent Incontinent External Catheter - Exam Awake, comfortable, No acute distress Examination of the heart S1 and S2 Examination of the lungs B breath sounds are heard , bilateral silicon breasts Abdomen is soft nontender Examination of lower extremities shows trace edema bilaterally [employer] exam grossly intact - Labs CBC & Chem 7: 01/17/23 07:03 01/17/23 07:03 Labs: Abnormal Lab Results - Last 24 Hours (Table) 01/17/23 01/17/23 Range/Units 07:03 07:03 Hgb 10.8 L (11.4-16.0) gm/dL Plt Count 147 L (150-450) k/uL Lymphocytes # 0.4 L (1.0-4.8) k/uL Potassium 3.4 L (3.5-5.1) mmol/L BUN 74 H (7-17) mg/dL Creatinine 2.58 H (0.52-1.04) mg/dL Glucose 117 H (74-99) mg/dL Calcium 8.3 L (8.4-10.2) mg/dL Microbiology - Last 24 Hours (Table) 01/13/23 12:55 Blood Culture - Preliminary Blood 01/13/23 13:50 Blood Culture Gram Stain - Final Blood Blood Culture - Final Escherichia coli Assessment and Plan Assessment: 1. Acute kidney injury secondary to ATN secondary to severe sepsis and cardiorenal syndrome. Creatinine decreased to 2.5 today. 2. Chronic kidney disease stage IIIB with creatinine 1.5 in October 2022. 3. Proteinuria. 3+ protein noted on UA however this was done in the setting of acute kidney injury and UTI. 4. Volume overload. 5. E. coli bacteremia with likely source being UTI. On IV antibiotics. 6. Hypertension, partially volume sensitive. Hydralazine increased to 50 mg 3 times a day. Plan: Continue with current dose of Lasix Repeat labs again in a.m.
[2023-01-17 14:10] LABS: C-ANCA <1:20 Titer (<1:20)
[2023-01-17] MEDS ORDERED: POTASSIUM CHLORIDE ER 20 MEQ TAB.ER PO STA (14:10)
--- NOTE | 2023-01-17 14:17 | P.PN ---
Subjective Progress Note Date: 01/17/23 Hospital course: Patient is a 77-year-old female with past medical history hypertension, stage III chronic kidney disease and depression. She presented to the emergency department on 01/13/23 with a chief complaint of generalized weakness and confusion. She underwent full evaluation. Patient was found to have an elevated temp of 99.8, blood pressure 100/88, heart rate 123, and 87% on room air requiring oxygen supplementation of 4 L nasal cannula to maintain SpO2 of 93%. Labs completed and reviewed. CBC showing normocytic anemia with hemoglobin of 10.9. BMP revealing hyponatremia with sodium of 133, hypocarbia with her next set of 21, and an acute kidney injury with BUN of 62, creatinine 2.09, and GFR of 22 with baseline creatinine of 1.5. Troponin was also elevated at 0.066. Urinalysis was contaminated but positive for protein, glucose, ketones, blood, and infection with greater than 182 WBCs. Urine drug screen negative. Influenza A, influenza B, RSV, and Covid PCR were all negative. EKG was completed showing sinus tachycardia at 114 bpm with frequent PACs and T-wave inversion in lateral leads 1 and aVL with no previous EKGs available for comparison. Chest x-ray was completed and radiology report reviewed negative for acute card a pulmonary process. Ultrasound kidney/renal/bladder completed showing nonobstructive left renal calculus and right renal cortical calculus no evidence for hydronephrosis. Patient was admitted under our services with consultation to nephrology and cardiology. Troponins trended resulting in 0.066, 0.155, and 0.224. ProBNP resulting at 27,700. Patient was started on IV Lasix for heart failure and Rocephin for treatment of UTI. Blood culture positive for E. coli resistant to ciprofloxacin, levofloxacin, and moxifloxacin. E. coli bacteremia likely secondary to UTI. Urine culture was not obtained at time of admission. Echocardiogram completed revealing preserved EF of 55-60% with severe concentric left ventricular hypertrophy. Physical exam: Vital signs reviewed and stable. General: Nontoxic, no distress and appears stated age. Derm: Skin warm and dry, normal coloration for ethnicity. Head: Atraumatic, normocephalic and symmetric. Eyes: EOMs intact, no lid lag, and anicteric sclera Mouth: no lip lesions, mucus membranes moist Cardiovascular: regular rate and rhythm with normal S1S2, no murmur, positive posterior tibial pulses bilaterally, and cap refill < 2 seconds. Lungs: Respirations even, regular, and unlabored on room air. Lungs CTA bilaterally, no rhonchi, no rales, no wheezing, and no accessory muscle usage. Abdominal: soft, nontender to palpation, no guarding, no appreciable organo megaly Ext: ROM intact. No gross muscle atrophy, no edema, no contractures Neuro: Speech clear, face symmetrical and CN II-XII grossly intact with no noted focal neuro deficits Psych: Alert and oriented to person, place, time, and situation. Appropriate and pleasant affect. Assessment and Plan of Care: Metabolic encephalopathy secondary to sepsis Elevated troponins E. coli bacteremia Acute diastolic heart failure with preserved EF of 55-60% Acute kidney injury on chronic kidney disease secondary to sepsis and cardiorenal syndrome Complicated urinary tract infection Acute respiratory failure with hypoxia History of hypertension History of depression -Morning labs reviewed. CBC showing improvement of thrombocytopenia with platelet count increasing to 147 from yesterday's 119 and stable normocytic anemia with hemoglobin of 10.8. BMP revealing hypokalemia with potassium of 3.4, hypomagnesemia with magnesium of 1.6, and slightly improved renal function with BUN of 74, creatinine 2.58, and GFR of 17. -Orders placed for replacement of potassium with K Dur 40 mEq and magnesium sulfate 2 g IVPB for treatment of hypomagnesemia. -Continue close monitoring of intake and output. Patient has had documented urinary output of 3400 mL over the past 24 hours. -Nephrology following and discussed plan of care with manager field services and she is recommending continued Lasix 40 mg IVP twice daily and continued close monitoring of renal function. -Orders placed for repeat morning BMP and magnesium to follow renal function and electrolytes closely with acute kidney injury and current use of IV diuretics. -Cardiology following and reviewed documentation in chart, cardiology added hydralazine for better blood pressure control and in agreement with continued management of IV diuretics as directed by manager field services. CODE STATUS: DO NOT RESUSCITATE/DO NOT INTUBATE DVT prophylaxis: Heparin Discussed with: Patient, manager field services, and RN Anticipated discharge date: Clinical course to determine Anticipated discharge place: Home Patient was seen independently by Nurse Pracitioner. This document was prepared using [email or web address] dictation software. Please allow for errors in equipment technician, while rare they do occur. Objective - Vital Signs Vital signs: Vital Signs Temp 98.1 F 01/17/23 04:00 Pulse 64 01/17/23 04:00 Resp 18 01/17/23 04:00 BP 170/66 01/17/23 04:00 Pulse Ox 92 L 01/17/23 04:00 FiO2 Intake & Output 01/16/23 01/17/23 01/17/23 18:59 06:59 18:59 Intake Total 90 540 Output Total 1650 1750 Balance -1560 -1210 Weight 98.5 kg Intake: Oral 90 540 Output: Urine 1650 1750 Post Void Residual 0 Other: Voiding Method Diaper Diaper Incontinent Incontinent External Catheter - Labs CBC & Chem 7: 01/17/23 07:03 01/17/23 07:03 Labs: Abnormal Lab Results - Last 24 Hours (Table) 01/17/23 Range/Units 07:03 Hgb 10.8 L (11.4-16.0) gm/dL Plt Count 147 L (150-450) k/uL Lymphocytes # 0.4 L (1.0-4.8) k/uL Microbiology - Last 24 Hours (Table) 01/13/23 13:50 Blood Culture Gram Stain - Final Blood Blood Culture - Final Escherichia coli 01/13/23 12:55 Blood Culture - Preliminary Blood Assessment and Plan Assessment: Gama Ramirez NP rendered care for this patient independently, reviewed the findings and plan as documented in the note above. I did not physically speak with our examined the patient on this date.
--- NOTE | 2023-01-17 14:23 | P.PN ---
Subjective Progress Note Date: 01/17/23 HISTORY OF PRESENT ILLNESS: This is a 77-year-old female with a past medical history significant for hypertension and depression. Patient does not follow with a sail lay out worker. We have been asked to see the patient in consultation for congestive heart failure. Patient examined at the bedside. Patient is somewhat of a poor historian upon evaluation. The patient states that she came into the hospital because she was feeling weak at home. She reports that she was having shaking movements of her hands and the rest of her body. She reports feeling confused at home. The patient was found to have a urinary tract infection and was started on antibiotics. The patient was also found to be in congestive heart failure and was started on IV Lasix. The patient currently denies chest pain or pressure. She denies shortness of breath. Vital signs are stable. * EKG reveals sinus mechanism with T-wave inversions in lead 1 and aVL. LVH. * Chest xray negative for acute process * Laboratory data: WBC 6.7. Hemoglobin 10.9. Platelet count 95. Sodium 136. Potassium 4.2. BUN 65. Creatinine 2.79. Troponin 0.066. 0.155. ProBNP 27,700. * Current home cardiac medications include metoprolol succinate 50 mg daily * No previous echocardiogram available for review 01/15/2023 Patient examined this morning at the bedside. Patient denies chest pain or pressure. She denies shortness of breath. She remains on IV Lasix 40 mg daily. Patient's blood pressure is elevated this morning with a systolic in the 180s. Echocardiogram completed revealing ejection fraction 55-60%. Valvular structures were unable to be seen. Repeat chest x-ray this morning reveals card and megaly, pulmonary vascular congestion and bilateral pleural effusions. 01/16/2023 Echocardiogram with Doppler completed yesterday showed ejection fraction of 55 to 60% with poor visualization of the valves. Amlodipine was added just today for blood pressure control and blood pressure remains elevated. Patient continues to have minimal lower extremity edema that appears to be improving. Renal function is worse with a BUN 74 and creatinine 2.91. Nephrology is following. 01/17 patient is seen today in follow-up. Blood pressure readings remain elevated and hydralazine increased to 50 mg 3 times daily.the blood work reveals WBC 7.3, hemoglobin 10.8, platelet count 147. Potassium 3.4, BUN 74 and creatinine 2.58. PHYSICAL EXAM: VITAL SIGNS: Reviewed. GENERAL: Well-developed in no acute distress. HEENT: Head is normocephalic. Pupils are equal, round. Sclerae anicteric. Mucous membranes of the mouth are moist. Neck supple. No JVD or thyromegaly LUNGS: Respirations even and unlabored. Lungs essentially clear to auscultation bilaterally, diminished.. HEART: Regular rate and rhythm. S1 and S2 heard. Systolic murmur noted ABDOMEN: Soft. Nondistended. Nontender. EXTREMITIES: Normal range of motion. No clubbing or cyanosis. Peripheral pulses intact. Trace lower extremity edema NEUROLOGIC: Awake and alert. Oriented x 3. ASSESSMENT: Altered mental status Generalized weakness Urinary tract infection E. coli bacteremia Acute congestive heart failure with preserved ejection fraction Acute on chronic kidney disease Abnormal troponins, suspect secondary to renal failure and bacteremia/sepsis History of hypertension History of depression PLAN: Continue current cardiac medications Continue Lasix 40 mg IV twice daily, management I nephrology Daily weights, accurate I&O, and monitoring of kidney function Continue Norvasc 5 mg twice daily for optimal blood pressure control Further recommendations pending patient's course Nurse practitioner note has been reviewed by physician. Signing provider agrees with the documented findings, assessment, and plan of care. Objective - Vital Signs Vital signs: Vital Signs Temp 98.1 F 01/17/23 04:00 Pulse 64 01/17/23 04:00 Resp 18 01/17/23 04:00 BP 170/66 01/17/23 04:00 Pulse Ox 93 L 01/17/23 07:49 FiO2 Intake & Output 01/16/23 01/17/23 01/17/23 18:59 06:59 18:59 Intake Total 90 540 540 Output Total 1650 1750 Balance -1560 -1210 540 Weight 98.5 kg Intake: Oral 90 540 540 Output: Urine 1650 1750 Post Void Residual 0 Other: Voiding Method Diaper Diaper Incontinent Incontinent External Catheter - Labs CBC & Chem 7: 01/17/23 07:03 01/17/23 07:03 Labs: Abnormal Lab Results - Last 24 Hours (Table) 01/17/23 01/17/23 Range/Units 07:03 07:03 Hgb 10.8 L (11.4-16.0) gm/dL Plt Count 147 L (150-450) k/uL Lymphocytes # 0.4 L (1.0-4.8) k/uL Potassium 3.4 L (3.5-5.1) mmol/L BUN 74 H (7-17) mg/dL Creatinine 2.58 H (0.52-1.04) mg/dL Glucose 117 H (74-99) mg/dL Calcium 8.3 L (8.4-10.2) mg/dL Microbiology - Last 24 Hours (Table) 01/13/23 13:50 Blood Culture Gram Stain - Final Blood Blood Culture - Final Escherichia coli 01/13/23 12:55 Blood Culture - Preliminary Blood
[2023-01-17] MEDS: MAGNESIUM SULFATE-D5W PMX 1 GM in DEXTROSE/WATER 1 100ML.BAG IVPB SCH ×2 (15:12→16:46)
[2023-01-17] MEDS: HEPARIN SODIUM,PORCINE/PF 5,000 UNIT/0.5 ML SYRINGE SQ SCH ×2 (16:46→23:42)
[2023-01-17 20:13] LABS: Albumin 2.39 g/dL (3.80-4.90); Gamma Globulin 0.42 g/dL (0.70-1.50)
[2023-01-18] MEDS: ASPIRIN 81 MG PO SCH (08:19)
[2023-01-18] MEDS: FUROSEMIDE 10 MG/ML 4 ML VIAL IV SCH ×2 (08:19→21:02)
[2023-01-18] MEDS: METOPROLOL SUCCINATE (ER) 50 MG TAB.ER.24H PO SCH (08:20)
[2023-01-18] MEDS: hydrALAZINE HCL 50 MG TAB PO SCH ×3 (08:20→23:03)
[2023-01-18] MEDS: HEPARIN SODIUM,PORCINE/PF 5,000 UNIT/0.5 ML SYRINGE SQ SCH ×3 (08:20→23:03)
[2023-01-18] MEDS: SERTRALINE 100 MG TAB PO SCH (08:20)
[2023-01-18] MEDS: amLODIPine 5 MG TAB PO SCH ×2 (08:20→21:02)
[2023-01-18 09:21] LABS: Calcium 8.5 mg/dL (8.4-10.2); Magnesium 2.1 mg/dL (1.6-2.3); Potassium 4.2 mmol/L (3.5-5.1)
[2023-01-18 11:06] VITALS: BMI 24.5
--- NOTE | 2023-01-18 11:52 | P.PN ---
Subjective Patient is seen for follow-up for acute kidney injury. She was admitted to the hospital with mental status changes and sepsis with UTI. Blood cultures are growing E. coli. Patient was maintained on IV fluids which were discontinued secondary to volume overload. Currently maintained on IV Lasix. No significant complaints today. Serum creatinine decreased to 2.5 today. All serologies are negative Blood pressure is improved. Post void residual was initially around 300 but repeat was less than 50ml. Remains on Lasix 40 mg IV twice a day. Objective - Vital Signs Vital signs: Vital Signs Temp 98.2 F 01/18/23 08:00 Pulse 70 01/18/23 08:00 Resp 19 01/18/23 04:00 BP 135/63 01/18/23 08:00 Pulse Ox 94 L 01/18/23 08:00 FiO2 Intake & Output 01/17/23 01/18/23 01/18/23 18:59 06:59 18:59 Intake Total 540 358 Output Total 550 550 550 Balance -10 -550 -192 Weight 67 kg 67 kg Intake: Oral 540 358 Output: Urine 550 550 550 Other: Voiding Method Diaper Diaper Incontinent Incontinent External Catheter External Catheter - Exam Awake, comfortable, No acute distress Examination of the heart S1 and S2 Examination of the lungs B breath sounds are heard , bilateral silicon breasts Abdomen is soft nontender Examination of lower extremities shows trace edema bilaterally [employer] MAINTE[employer] SUPERVISOR exam grossly intact - Labs CBC & Chem 7: 01/17/23 07:03 01/18/23 08:51 Labs: Abnormal Lab Results - Last 24 Hours (Table) 01/14/23 01/18/23 Range/Units 11:23 08:51 BUN 79 H (7-17) mg/dL Creatinine 2.64 H (0.52-1.04) mg/dL Glucose 142 H (74-99) mg/dL Albumin (PEP) 2.39 L (3.80-4.90) g/dL [id number] 0.49 H (0.10-0.40) g/dL Gamma Globulins 0.42 L (0.70-1.50) g/dL Microbiology - Last 24 Hours (Table) 01/13/23 12:55 Blood Culture - Preliminary Blood Assessment and Plan Assessment: 1. Acute kidney injury secondary to ATN secondary to severe sepsis and cardiorenal syndrome. Creatinine decreased to 2.5 today. 2. Chronic kidney disease stage IIIB with creatinine 1.5 in October 2022. 3. Proteinuria. 3+ protein noted on UA however this was done in the setting of acute kidney injury and UTI. 4. Volume overload. 5. E. coli bacteremia with likely source being UTI. On IV antibiotics. 6. Hypertension, partially volume sensitive. Hydralazine increased to 50 mg 3 times a day. Plan: Continue with current dose of Lasix Check CXR and possibly switch to oral lasix Repeat labs again in a.m.
--- NOTE | 2023-01-18 13:14 | P.PN ---
Subjective Progress Note Date: 01/18/23 Hospital course: Patient is a 77-year-old female with past medical history hypertension, stage III chronic kidney disease and depression. She presented to the emergency department on 01/13/23 with a chief complaint of generalized weakness and confusion. She underwent full evaluation. Patient was found to have an elevated temp of 99.8, blood pressure 100/88, heart rate 123, and 87% on room air requiring oxygen supplementation of 4 L nasal cannula to maintain SpO2 of 93%. Labs completed and reviewed. CBC showing normocytic anemia with hemoglobin of 10.9. BMP revealing hyponatremia with sodium of 133, hypocarbia with her next set of 21, and an acute kidney injury with BUN of 62, creatinine 2.09, and GFR of 22 with baseline creatinine of 1.5. Troponin was also elevated at 0.066. Urinalysis was contaminated but positive for protein, glucose, ketones, blood, and infection with greater than 182 WBCs. Urine drug screen negative. Influenza A, influenza B, RSV, and Covid PCR were all negative. EKG was completed showing sinus tachycardia at 114 bpm with frequent PACs and T-wave inversion in lateral leads 1 and aVL with no previous EKGs available for comparison. Chest x-ray was completed and radiology report reviewed negative for acute card a pulmonary process. Ultrasound kidney/renal/bladder completed showing nonobstructive left renal calculus and right renal cortical calculus no evidence for hydronephrosis. Patient was admitted under our services with consultation to nephrology and cardiology. Troponins trended resulting in 0.066, 0.155, and 0.224. ProBNP resulting at 27,700. Patient was started on IV Lasix for heart failure and Rocephin for treatment of UTI. Blood culture positive for E. coli resistant to ciprofloxacin, levofloxacin, and moxifloxacin. E. coli bacteremia likely secondary to UTI. Urine culture was not obtained at time of admission. Echocardiogram completed revealing preserved EF of 55-60% with severe concentric left ventricular hypertrophy. Physical exam: Vital signs reviewed and stable. General: Nontoxic, no distress and appears stated age. Derm: Skin warm and dry, normal coloration for ethnicity. Head: Atraumatic, normocephalic and symmetric. Eyes: EOMs intact, no lid lag, and anicteric sclera Mouth: no lip lesions, mucus membranes moist Cardiovascular: regular rate and rhythm with normal S1S2, no murmur, positive posterior tibial pulses bilaterally, and cap refill < 2 seconds. Lungs: Respirations even, regular, and unlabored on room air. Lungs CTA bilaterally, no rhonchi, no rales, no wheezing, and no accessory muscle usage. Abdominal: soft, nontender to palpation, no guarding, no appreciable organomegaly Ext: ROM intact. No gross muscle atrophy, no edema, no contractures Neuro: Speech clear, face symmetrical and CN II-XII grossly intact with no noted focal neuro deficits Psych: Alert and oriented to person, place, time, and situation. Appropriate and pleasant affect. Assessment and Plan of Care: Metabolic encephalopathy secondary to sepsis Elevated troponins E. coli bacteremia, believed to be secondary to UTI Acute diastolic heart failure with preserved EF of 55-60% Acute kidney injury on chronic kidney disease stage IIIB secondary to sepsis and cardiorenal syndrome Complicated urinary tract infection Acute respiratory failure with hypoxia Hypokalemia, resolved Hypomagnesemia, resolved History of hypertension History of depression -Morning labs reviewed. BMP showing resolution of hypokalemia with potassium of 4.2 and resolution of hypomagnesemia with magnesium of 2.1. Renal function showing BUN of 79, creatinine 2.64, and GFR of 17. -Continue close monitoring of intake and output. Patient has had documented urinary output of 1100 mL over the past 24 hours and a documented weight loss of 16.9 kg or 37.18 lbs since arrival to our facility from 01/13/23. -Nephrology following and discussed plan of care with sanitation worker cleaning machinery and she is recommending repeating a chest x-ray and continued Lasix 40 mg IVP twice daily and continued close monitoring of renal function. -Order placed for chest x-ray to be completed tomorrow morning. -Orders placed for repeat morning BMP and magnesium to follow renal function and electrolytes closely with acute kidney injury and current use of IV diuretics. -Cardiology following and reviewed documentation in chart, cardiology added hydralazine for better blood pressure control and in agreement with continued management of IV diuretics as directed by sanitation worker cleaning machinery. CODE STATUS: DO NOT RESUSCITATE/DO NOT INTUBATE DVT prophylaxis: Heparin Discussed with: Patient, sanitation worker cleaning machinery, and RN Anticipated discharge date: Clinical course to determine Anticipated discharge place: Home Patient was seen independently by Nurse Pracitioner. This document was prepared using Dragon dictation software. Please allow for errors in proof technician, while rare they do occur. Objective - Vital Signs Vital signs: Vital Signs Temp 98.1 F 01/18/23 04:00 Pulse 77 01/18/23 04:00 Resp 19 01/18/23 04:00 BP 137/67 01/18/23 04:00 Pulse Ox 93 L 01/18/23 04:00 FiO2 Intake & Output 01/17/23 01/18/23 01/18/23 18:59 06:59 18:59 Intake Total 540 358 Output Total 550 550 Balance -10 -550 358 Weight 67 kg Intake: Oral 540 358 Output: Urine 550 550 Other: Voiding Method Diaper Diaper Incontinent Incontinent External Catheter External Catheter - Labs CBC & Chem 7: 01/17/23 07:03 01/18/23 08:51 Labs: Abnormal Lab Results - Last 24 Hours (Table) 01/14/23 01/17/23 Range/Units 11:23 07:03 Potassium 3.4 L (3.5-5.1) mmol/L BUN 74 H (7-17) mg/dL Creatinine 2.58 H (0.52-1.04) mg/dL Glucose 117 H (74-99) mg/dL Calcium 8.3 L (8.4-10.2) mg/dL Albumin (PEP) 2.39 L (3.80-4.90) g/dL Dysuf-5-Ypqpnuttz 0.49 H (0.10-0.40) g/dL Gamma Globulins 0.42 L (0.70-1.50) g/dL Microbiology - Last 24 Hours (Table) 01/13/23 12:55 Blood Culture - Preliminary Blood
--- NOTE | 2023-01-18 14:43 | P.PN ---
Subjective Progress Note Date: 01/18/23 HISTORY OF PRESENT ILLNESS: This is a 77-year-old female with a past medical history significant for hypertension and depression. 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 We have been asked to see the patient in consultation for congestive heart failure. Patient examined at the bedside. Patient is somewhat of a poor historian upon evaluation. The patient states that she came into the hospital because she was feeling weak at home. She reports that she was having shaking movements of her hands and the rest of her body. She reports feeling confused at home. The patient was found to have a urinary tract infection and was started on antibiotics. The patient was also found to be in congestive heart failure and was started on IV Lasix. The patient currently denies chest pain or pressure. She denies shortness of breath. Vital signs are stable. * EKG reveals sinus mechanism with T-wave inversions in lead 1 and aVL. LVH. * Chest xray negative for acute process * Laboratory data: WBC 6.7. Hemoglobin 10.9. Platelet count 95. Sodium 136. Potassium 4.2. BUN 65. Creatinine 2.79. Troponin 0.066. 0.155. ProBNP 27,700. * Current home cardiac medications include metoprolol succinate 50 mg daily * No previous echocardiogram available for review 01/15/2023 Patient examined this morning at the bedside. Patient denies chest pain or pressure. She denies shortness of breath. She remains on IV Lasix 40 mg daily. Patient's blood pressure is elevated this morning with a systolic in the 180s. Echocardiogram completed revealing ejection fraction 55-60%. Valvular structures were unable to be seen. Repeat chest x-ray this morning reveals card and megaly, pulmonary vascular congestion and bilateral pleural effusions. 01/16/2023 Echocardiogram with Doppler completed yesterday showed ejection fraction of 55 to 60% with poor visualization of the valves. Amlodipine was added just today for blood pressure control and blood pressure remains elevated. Patient continues to have minimal lower extremity edema that appears to be improving. Renal function is worse with a BUN 74 and creatinine 2.91. Nephrology is following. 01/17 patient is seen today in follow-up. Blood pressure readings remain elevated and hydralazine increased to 50 mg 3 times daily.the blood work reveals WBC 7.3, hemoglobin 10.8, platelet count 147. Potassium 3.4, BUN 74 and creatinine 2.58. 01/18 Patient is seen today in follow-up. Blood pressure is improved. We increased hydralazine yesterday to 50 mg 3 times daily. Patient denies any chest pain or shortness of breath. She is followed by nephrology as well. PHYSICAL EXAM: VITAL SIGNS: Reviewed. GENERAL: Well-developed in no acute distress. HEENT: Head is normocephalic. Pupils are equal, round. Sclerae anicteric. Mucous membranes of the mouth are moist. Neck supple. No JVD or thyromegaly LUNGS: Respirations even and unlabored. Lungs essentially clear to auscultation bilaterally, diminished.. HEART: Regular rate and rhythm. S1 and S2 heard. Systolic murmur noted ABDOMEN: Soft. Nondistended. Nontender. EXTREMITIES: Normal range of motion. No clubbing or cyanosis. Peripheral pulses intact. Trace lower extremity edema NEUROLOGIC: Awake and alert. Oriented x 3. ASSESSMENT: Altered mental status Generalized weakness Urinary tract infection E. coli bacteremia Acute congestive heart failure with preserved ejection fraction Acute on chronic kidney disease Abnormal troponins, suspect secondary to renal failure and bacteremia/sepsis History of hypertension History of depression PLAN: Continue current cardiac medications Continue Lasix 40 mg IV twice daily, management I nephrology Daily weights, accurate I&O, and monitoring of kidney function Cardiology will sign off and follow on an as-needed basis. Please reconsult if any new concerns. Nurse practitioner note has been reviewed by physician. Signing provider agrees with the documented findings, assessment, and plan of care. Objective - Vital Signs Vital signs: Vital Signs Temp 98.2 F 01/18/23 08:00 Pulse 70 01/18/23 08:00 Resp 19 01/18/23 04:00 BP 135/63 01/18/23 08:00 Pulse Ox 94 L 01/18/23 08:00 FiO2 Intake & Output 01/17/23 01/18/23 01/18/23 18:59 06:59 18:59 Intake Total 540 358 Output Total 550 550 550 Balance -10 550 -192 Weight 67 kg Intake: Oral 540 358 Output: Urine 550 550 550 Other: Voiding Method Diaper Diaper Incontinent Incontinent External Catheter External Catheter - Labs CBC & Chem 7: 01/17/23 07:03 01/18/23 08:51 Labs: Abnormal Lab Results - Last 24 Hours (Table) 01/14/23 01/18/23 Range/Units 11:23 08:51 BUN 79 H (7-17) mg/dL Creatinine 2.64 H (0.52-1.04) mg/dL Glucose 142 H (74-99) mg/dL Albumin (PEP) 2.39 L (3.80-4.90) g/dL [id number] 0.49 H (0.10-0.40) g/dL Gamma Globulins 0.42 L (0.70-1.50) g/dL Microbiology - Last 24 Hours (Table) 01/13/23 12:55 Blood Culture - Preliminary Blood
[2023-01-18] MEDS: MELATONIN 5 MG TABLET PO SCH (21:17)
[2023-01-19] MEDS: HEPARIN SODIUM,PORCINE/PF 5,000 UNIT/0.5 ML SYRINGE SQ SCH ×2 (08:26→16:27)
[2023-01-19] MEDS: FUROSEMIDE 10 MG/ML 4 ML VIAL IV SCH (08:26)
[2023-01-19] MEDS: METOPROLOL SUCCINATE (ER) 50 MG TAB.ER.24H PO SCH (08:27)
[2023-01-19] MEDS: amLODIPine 5 MG TAB PO SCH ×2 (08:27→20:01)
[2023-01-19] MEDS: hydrALAZINE HCL 50 MG TAB PO SCH (08:27)
[2023-01-19] MEDS: SERTRALINE 100 MG TAB PO SCH (08:27)
[2023-01-19] MEDS: ASPIRIN 81 MG PO SCH (08:27)
--- NOTE | 2023-01-19 08:30 | XR ---
EXAMINATION TYPE: XR chest 1V portable DATE OF EXAM: 01/19/2023 COMPARISON: 01/15/2023 HISTORY: Shortness of breath TECHNIQUE: Single frontal view of the chest is obtained. FINDINGS: Overlying partially calcified breast implants limits the evaluation of chest. There is int erstitial coarsening lung markings. Left lower lobe infiltrate laterally with small effusion suspecte d. Diffuse osteopenia demonstrates normal diffuse osteopenia. IMPRESSION: 1. Suspect mild venous congestion with left lower lobe infiltrate and small effusion stable from prio r exam correlate for CHF.
[2023-01-19 09:26] LABS: Calcium 8.9 mg/dL (8.4-10.2); Potassium 3.9 mmol/L (3.5-5.1)
--- NOTE | 2023-01-19 11:38 | P.PN ---
Subjective Patient is seen for follow-up for acute kidney injury. She was admitted to the hospital with mental status changes and sepsis with UTI. Blood cultures are growing E. coli. Patient was maintained on IV fluids which were discontinued secondary to volume overload. Currently maintained on IV Lasix. No significant complaints today. Serum creatinine decreased to 2.9 today. All serologies are negative Blood pressure is improved. Post void residual was initially around 300 but repeat was less than 50ml. Remains on Lasix 40 mg IV twice a day. No complaints of shortness of breath. Overall patient states she feels well. Objective - Vital Signs Vital signs: Vital Signs Temp 97.8 F 01/19/23 08:00 Pulse 78 01/19/23 08:00 Resp 18 01/19/23 08:00 BP 119/69 01/19/23 08:00 Pulse Ox 91 L 01/19/23 08:00 FiO2 Intake & Output 01/18/23 01/19/23 01/19/23 18:59 06:59 18:59 Intake Total 898 658 Output Total 1750 1600 200 Balance -852 -1600 458 Weight 67 kg 82 kg Intake: Oral 898 658 Output: Urine 1750 1600 200 Other: Voiding Method Diaper Diaper Diaper Incontinent Incontinent Incontinent External Catheter External Catheter External Catheter # Voids 1 # Bowel Movements 1 - Exam Awake, comfortable, No acute distress Examination of the heart S1 and S2 Examination of the lungs B breath sounds are heard , bilateral silicon breasts Abdomen is soft nontender Examination of lower extremities shows trace edema bilaterally [employer]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 Acute kidney injury secondary to ATN secondary to severe sepsis and cardiorenal syndrome. Creatinine has been slowly increasing over the past 2-3 days. Change Lasix to oral. Blood pressure is also on the lower side therefore hydralazine will be decreased 2. Chronic kidney disease stage IIIB with creatinine 1.5 in October 2022. 3. Proteinuria. 3+ protein noted on UA however this was done in the setting of acute kidney injury and UTI. 4. Volume overload, improved. 5. E. coli bacteremia with likely source being UTI. On IV antibiotics. 6. Hypertension, partially volume sensitive. Blood pressure has improved with improvement in volume status. I will decrease the hydralazine. Plan: Change Lasix to oral Decrease hydralazine Repeat labs in a.m.
--- NOTE | 2023-01-19 12:52 | P.PN ---
Subjective Progress Note Date: 01/19/23 Hospital course: Patient is a 77-year-old female with past medical history hypertension, stage III chronic kidney disease and depression. She presented to the emergency department on 01/13/23 with a chief complaint of generalized weakness and confusion. She underwent full evaluation. Patient was found to have an elevated temp of 99.8, blood pressure 100/88, heart rate 123, and 87% on room air requiring oxygen supplementation of 4 L nasal cannula to maintain SpO2 of 93%. Labs completed and reviewed. CBC showing normocytic anemia with hemoglobin of 10.9. BMP revealing hyponatremia with sodium of 133, hypocarbia with her next set of 21, and an acute kidney injury with BUN of 62, creatinine 2.09, and GFR of 22 with baseline creatinine of 1.5. Troponin was also elevated at 0.066. Urinalysis was contaminated but positive for protein, glucose, ketones, blood, and infection with greater than 182 WBCs. Urine drug screen negative. Influenza A, influenza B, RSV, and Covid PCR were all negative. EKG was completed showing sinus tachycardia at 114 bpm with frequent PACs and T-wave inversion in lateral leads 1 and aVL with no previous EKGs available for comparison. Chest x-ray was completed and radiology report reviewed negative for acute card a pulmonary process. Ultrasound kidney/renal/bladder completed showing nonobstructive left renal calculus and right renal cortical calculus no evidence for hydronephrosis. Patient was admitted under our services with consultation to nephrology and cardiology. Troponins trended resulting in 0.066, 0.155, and 0.224. ProBNP resulting at 27,700. Patient was started on IV Lasix for heart failure and Rocephin for treatment of UTI. Blood culture positive for E. coli resistant to ciprofloxacin, levofloxacin, and moxifloxacin. E. coli bacteremia likely secondary to UTI. Urine culture was not obtained at time of admission. Echocardiogram completed revealing preserved EF of 55-60% with severe concentric left ventricular hypertrophy. Physical exam: Patient seen and fully evaluated at bedside this morning. Patient appears to be doing well. Discussed with nephrology will transition patient to oral Lasix and repeat BMP with morning labs and likely plan for discharge. Vital signs reviewed and stable. General: Nontoxic, no distress and appears stated age. Derm: Skin warm and dry, normal coloration for ethnicity. Head: Atraumatic, normocephalic and symmetric. Eyes: EOMs intact, no lid lag, and anicteric sclera Mouth: no lip lesions, mucus membranes moist Cardiovascular: regular rate and rhythm with normal S1S2, no murmur, positive posterior tibial pulses bilaterally, and cap refill < 2 seconds. Lungs: Respirations even, regular, and unlabored on room air. Lungs CTA bilaterally, no rhonchi, no rales, no wheezing, and no accessory muscle usage. Abdominal: soft, nontender to palpation, no guarding, no appreciable organomegaly Ext: ROM intact. No gross muscle atrophy, no edema, no contractures Neuro: Speech clear, face symmetrical and CN II-XII grossly intact with no noted focal neuro deficits Psych: Alert and oriented to person, place, time, and situation. Appropriate and pleasant affect. Assessment and Plan of Care: Metabolic encephalopathy secondary to sepsis Elevated troponins E. coli bacteremia, believed to be secondary to UTI Acute diastolic heart failure with preserved EF of 55-60% Acute kidney injury on chronic kidney disease stage IIIB secondary to sepsis and cardiorenal syndrome Complicated urinary tract infection Acute respiratory failure with hypoxia Hypertensive urgency, resolved Hypokalemia, resolved Hypomagnesemia, resolved History of hypertension History of depression -Morning labs reviewed. BMP showing persistent elevated renal function with BUN of 84, creatinine 2.99, and GFR 14. -Continue close monitoring of intake and output. Patient has had documented urinary output of 3350 mL over the past 24 hours. -Nephrology following and discussed plan of care with director mobile and she is recommending transitioning patient to oral Lasix 40 mg daily and decreasing hydralazine. Recommending overnight monitoring with repeat BMP tomorrow morning. -Repeat chest x-ray was completed this morning and radiology report reviewed revealing mild venous congestion with left lower lobe infiltrate and small effusion stable from prior examination. -Orders placed for repeat morning BMP and magnesium to follow renal function and electrolytes closely with acute kidney injury. -Cardiology was following and signed off. Documentation was reviewed and cardiology added hydralazine for better blood pressure control and in agreement with continued management of IV diuretics as directed by director mobile. CODE STATUS: DO NOT RESUSCITATE/DO NOT INTUBATE DVT prophylaxis: Heparin Discussed with: Patient, director mobile, and RN Anticipated discharge date: Likely tomorrow morning Anticipated discharge place: [facility] Patient was seen independently by Nurse Pracitioner. This document was prepared using [employer] dictation software. Please allow for errors in curriculum developer, while rare they do occur. Objective - Vital Signs Vital signs: Vital Signs Temp 97.8 F 01/19/23 00:00 Pulse 88 01/19/23 07:44 Resp 17 01/19/23 07:44 BP 127/71 01/19/23 04:00 Pulse Ox 93 L 01/19/23 04:00 FiO2 Intake & Output 01/18/23 01/19/23 01/19/23 18:59 06:59 18:59 Intake Total 898 658 Output Total 1750 1600 Balance -852 -1600 658 Weight 67 kg 82 kg Intake: Oral 898 658 Output: Urine 1750 1600 Other: Voiding Method Diaper Diaper Diaper Incontinent Incontinent Incontinent External Catheter External Catheter External Catheter # Voids 1 # Bowel Movements 1 - Labs CBC & Chem 7: 01/17/23 07:03 01/19/23 07:51 Labs: Abnormal Lab Results - Last 24 Hours (Table) 01/18/23 Range/Units 08:51 BUN 79 H (7-17) mg/dL Creatinine 2.64 H (0.52-1.04) mg/dL Glucose 142 H (74-99) mg/dL Microbiology - Last 24 Hours (Table) 01/13/23 12:55 Blood Culture - Preliminary Blood
[2023-01-19] MEDS ORDERED: hydrALAZINE HCL 25 MG TAB PO SCH (16:00)
[2023-01-19] MEDS: MELATONIN 5 MG TABLET PO SCH (20:01)
[2023-01-19] MEDS: hydrALAZINE HCL 25 MG TAB PO SCH (20:03)
[2023-01-20] MEDS: HEPARIN SODIUM,PORCINE/PF 5,000 UNIT/0.5 ML SYRINGE SQ SCH ×2 (00:39→09:39)
[2023-01-20 05:02] VITALS: RESP 18
[2023-01-20] MEDS ORDERED: FUROSEMIDE 40 MG TAB PO SCH (09:00)
[2023-01-20] MEDS ORDERED: METOPROLOL SUCCINATE (ER) 25 MG TAB.ER.24H PO SCH (09:00)
[2023-01-20] MEDS: ASPIRIN 81 MG PO SCH (09:39)
[2023-01-20] MEDS: SERTRALINE 100 MG TAB PO SCH (09:39)
[2023-01-20] MEDS: hydrALAZINE HCL 25 MG TAB PO SCH (09:39)
[2023-01-20] MEDS: amLODIPine 5 MG TAB PO SCH (09:39)
--- NOTE | 2023-01-20 10:30 | P.DS ---
Providers Date of admission: 01/13/23 15:17 Expected date of discharge: 01/20/23 Attending physician: Jose Alfredo Rutledge MD Consults: 01/13/23 18:18 Consult Physician Routine Consulting Provider: Rivas Witt Consult Reason/Comments: heart failure Do you want consulting provider notified?: Yes 01/14/23 08:59 Consult Physician Routine Consulting Provider: Edgar Guerrero Consult Reason/Comments: significant proteinuria, suspect nephrotic syndrom Do you want consulting provider notified?: Yes Primary care physician: Glen Escobedo MD Hospital Course: Discharge Diagnosis: Metabolic encephalopathy secondary to sepsis. Resolved. Elevated troponins. Cardiology evaluating recommending patient continue with current cardiac medications and signing off on 01/18/23 recommending outpatient follow-up in their office. E. coli bacteremia, believed to be secondary to UTI. Patient completed 3 day course of Rocephin and being discharged home on an additional 7 days of Keflex 500 mg every 6 hours to total a treatment course of 10 days of antibiotic therapy for treatment of E. coli bacteremia. Acute diastolic heart failure with preserved EF of 55-60% Acute kidney injury on chronic kidney disease stage IIIB secondary to sepsis and cardiorenal syndrome, nephrology evaluated recommending patient to follow-up outpatient in her office in one week. Complicated urinary tract infection Acute respiratory failure with hypoxia Hypertensive urgency, resolved Hypokalemia, resolved Hypomagnesemia, resolved History of hypertension History of depression Hospital Course: Patient is a 77-year-old female with past medical history hypertension, stage III chronic kidney disease and depression. She presented to the emergency department on 01/13/23 with a chief complaint of generalized weakness and confusion. She underwent full evaluation. Patient was found to have an elevated temp of 99.8, blood pressure 100/88, heart rate 123, and 87% on room air requiring oxygen supplementation of 4 L nasal cannula to maintain SpO2 of 93%. Labs completed and reviewed. CBC showing normocytic anemia with hemoglobin of 10.9. BMP revealing hyponatremia with sodium of 133, hypocarbia with her next set of 21, and an acute kidney injury with BUN of 62, creatinine 2.09, and GFR of 22 with baseline creatinine of 1.5. Troponin was also elevated at 0.066. Urinalysis was contaminated but positive for protein, glucose, ketones, blood, and infection with greater than 182 WBCs. Urine drug screen negative. Influenza A, influenza B, RSV, and Covid PCR were all negative. EKG was completed showing sinus tachycardia at 114 bpm with frequent PACs and T-wave inversion in lateral leads 1 and aVL with no previous EKGs available for comparison. Chest x-ray was completed and radiology report reviewed negative for acute card a pulmonary process. Ultrasound kidney/renal/bladder completed showing nonobstructive left renal calculus and right renal cortical calculus no evidence for hydronephrosis. Patient was admitted under our services with consultation to nephrology and cardiology. Troponins trended resulting in 0.066, 0.155, and 0.224. ProBNP resulting at 27,700. Patient was started on IV Lasix for heart failure and Rocephin for treatment of UTI. Blood culture positive for E. coli resistant to ciprofloxacin, levofloxacin, and moxifloxacin. E. coli bacteremia likely secondary to UTI. Urine culture was not obtained at time of admission. Echocardiogram completed revealing preserved EF of 55-60% with severe concentric left ventricular hypertrophy. Cardiology clearing patient from cardiac perspective on 01/18/23. Nephrology recommended monitoring a couple additional days. Patient's renal function remains elevated with BUN of 84, creatinine 2.99, and GFR 14. Discussed in detail with assistive technology trainer and she is recommending for patient to continue with current dose of Lasix and follow up in her office in one week with repeat labs in 3 days. Lab Results to be sent to nephrology office for follow-up and management. Patient is medically stable at this time. Arrangements have been made for patient to be discharged to [facility] for rehabilitation. Physical exam: Vital signs reviewed and stable. General: Nontoxic, no distress and appears stated age. Derm: Skin warm and dry, normal coloration for ethnicity. Head: Atraumatic, normocephalic and symmetric. Eyes: EOMs intact, no lid lag, and anicteric sclera Mouth: no lip lesions, mucus membranes moist Cardiovascular: regular rate and rhythm with normal S1S2, no murmur, positive posterior tibial pulses bilaterally, and cap refill < 2 seconds. Lungs: Respirations even, regular, and unlabored on room air. Lungs CTA bilaterally, no rhonchi, no rales, no wheezing, and no accessory muscle usage. Abdominal: soft, nontender to palpation, no guarding, no appreciable organomegaly Ext: ROM intact. No gross muscle atrophy, no edema, no contractures Neuro: Speech clear, face symmetrical and CN II-XII grossly intact with no noted focal neuro deficits Psych: Alert and oriented to person, place, time, and situation. Appropriate and pleasant affect. A total of 33 minutes of time were spent preparing this complex discharge summary. Pt was discharged on 01/20/23 at 9:59 AM. Patient was seen independently by Nurse Practitioner. This document was prepared using [employer] dictation software. Please allow for errors in chart writer while rare they do occur. Patient Condition at Discharge: Stable Plan - Discharge Summary Discharge Rx Participant: No New Discharge Prescriptions: New Aspirin 81 mg PO DAILY tab Cephalexin [Keflex] 500 mg PO Q6HR 7 Days #28 cap hydrALAZINE HCL [Apresoline] 25 mg PO BID tab Furosemide [Lasix] 40 mg PO DAILY tab amLODIPine [Norvasc] 5 mg PO BID tab Metoprolol Succinate (ER) [Toprol XL] 25 mg PO DAILY tab Continue Sertraline [Zoloft] 100 mg PO DAILY Discontinued Metoprolol Succinate (ER) [Toprol Xl] 50 mg PO DAILY Discharge Medication List Sertraline [Zoloft] 100 mg PO DAILY 01/13/23 [History] Aspirin 81 mg PO DAILY tab 01/20/23 [Rx] Cephalexin [Keflex] 500 mg PO Q6HR 7 Days #28 cap 01/20/23 [Rx] Furosemide [Lasix] 40 mg PO DAILY tab 01/20/23 [Rx] Metoprolol Succinate (ER) [Toprol XL] 25 mg PO DAILY tab 01/20/23 [Rx] amLODIPine [Norvasc] 5 mg PO BID tab 01/20/23 [Rx] hydrALAZINE HCL [Apresoline] 25 mg PO BID tab 01/20/23 [Rx] Follow up Appointment(s)/Referral(s): North Kerr MD [STAFF PHYSICIAN] - 1 Week Lamar Tate MD [STAFF PHYSICIAN] - 1 Week Glen Escobedo MD [Primary Care Provider] - 1-2 days Discharge Disposition: TRANSFER TO SNF/ECF
--- NOTE | 2023-01-20 11:08 | P.PN ---
Subjective Patient is seen for follow-up for acute kidney injury. She was admitted to the hospital with mental status changes and sepsis with UTI. Blood cultures are growing E. coli. Patient was maintained on IV fluids which were discontinued secondary to volume overload. Currently maintained on IV Lasix. No significant complaints today. Serum creatinine staying at 2.6-2.9 All serologies are negative Blood pressure was low and hydralazine and metoprolol were decreased yesterday. Lasix is been switched to oral No complaints today patient feels well. Objective - Vital Signs Vital signs: Vital Signs Temp 97.8 F 01/20/23 04:00 Pulse 66 01/20/23 04:00 Resp 18 01/20/23 04:00 BP 136/62 01/20/23 04:00 Pulse Ox 92 L 01/20/23 09:59 FiO2 Intake & Output 01/19/23 01/20/23 01/20/23 18:59 06:59 18:59 Intake Total 1016 350 358 Output Total 700 400 Balance 316 350 -42 Weight 90 kg Intake: Oral 1016 350 358 Output: Urine 700 400 Other: Voiding Method Diaper External Catheter Incontinent External Catheter - Exam Awake, comfortable, No acute distress Examination of the heart S1 and S2 Examination of the lungs B breath sounds are heard , bilateral silicon breasts Abdomen is soft nontender Examination of lower extremities shows trace edema bilaterally 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 Acute kidney injury secondary to ATN secondary to severe sepsis and cardiorenal syndrome. Serum creatinine had slowly increased over the last 2-3 days. Blood pressure had been low and hydralazine and Toprol were decreased yesterday along with switching the Lasix to oral. 2. Chronic kidney disease stage IIIB with creatinine 1.5 in October 2022. 3. Proteinuria. 3+ protein noted on UA however this was done in the setting of acute kidney injury and UTI. 4. Volume overload, improved. 5. E. coli bacteremia with likely source being UTI. On IV antibiotics. 6. Hypertension, partially volume sensitive. Blood pressure has improved with improvement in volume status. Hydralazine has been decreased Plan: Okay to discharge patient and repeat labs as outpatient in 3-4 days. Continue current dose of Lasix. Follow-up as outpatient in 1-2 weeks.
[2023-01-20 11:15] VITALS: TEMP 96.8
[2023-01-20 12:13] VITALS: BP 145/65; PULSE 64
== END 2023-01-20 15:00 | DRG 871 ==
LOC: EC 12:54 → 5NMEDONC 15:17 → 3SCARD 18:09
PROVIDERS: ADMIT Internal Medicine; ATTEND Internal Medicine
DX: A41.51 Sepsis due to Escherichia coli [E. coli] (principal); G93.41 Metabolic encephalopathy; N17.0 Acute kidney failure with tubular necrosis; J96.01 Acute respiratory failure with hypoxia; I50.31 Acute diastolic (congestive) heart failure; I5A Non-ischemic myocardial injury (non-traumatic); I13.0 Hypertensive heart and chronic kidney disease with heart failure and stage 1 through stage 4 chronic kidney disease, or unspecified chronic kidney disease; E87.1 Hypo-osmolality and hyponatremia; Z16.23 Resistance to quinolones and fluoroquinolones; N39.0 Urinary tract infection, site not specified; D69.6 Thrombocytopenia, unspecified; D63.1 Anemia in chronic kidney disease; F03.90 Unspecified dementia, unspecified severity, without behavioral disturbance, psychotic disturbance, mood disturbance, and anxiety; N18.32 Chronic kidney disease, stage 3b; F32.A Depression, unspecified; J44.9 Chronic obstructive pulmonary disease, unspecified; Z66 Do not resuscitate; I48.91 Unspecified atrial fibrillation; I49.49 Other premature depolarization; F17.210 Nicotine dependence, cigarettes, uncomplicated; R32 Unspecified urinary incontinence; R80.9 Proteinuria, unspecified; R53.1 Weakness; R39.11 Hesitancy of micturition; I49.1 Atrial premature depolarization; I87.8 Other specified disorders of veins; I16.0 Hypertensive urgency; E87.6 Hypokalemia; E83.42 Hypomagnesemia; N20.0 Calculus of kidney; R65.20 Severe sepsis without septic shock; R03.1 Nonspecific low blood-pressure reading; Z20.822 Contact with and (suspected) exposure to COVID-19; Z28.311 Partially vaccinated for COVID-19; Z79.899 Other long term (current) drug therapy
CPT/HCPCS: 36415; 71045; 71046; 76770; 80048; 80053; 80061; 80074; 80306; 81001; 82570; 83735; 83880; 84156; 84165; 84300; 84484; 85025; 85610; 85730; 86038; 86160; 86162; 86225; 86255; 86334; 87077; 87186; 87635; 87636; 93005; 93306; 94760; 96361; 96374; 99285

== ENCOUNTER 2023-07-30 10:37 | Inpatient (IN) | payer MEDICARE ==
--- NOTE | 2023-07-30 11:02 | ED ---
General Adult HPI - General Chief complaint: Extremity Injury, Lower Stated complaint: blisters on both legs some have opened Time Seen by Provider: 07/30/23 10:51 Source: patient, family, RN notes reviewed Mode of arrival: wheelchair Limitations: no limitations - History of Present Illness Initial comments: Patient is a pleasant 77-year-old female presenting to the emergency department with concerns with blisters of her legs. Patient does have chronic swelling. Patient has had redness for the past week or 2. Patient has had blisters starting today. No pain. Patient denies fevers. - Related Data Home Medications Medication Instructions Recorded Confirmed Sertraline [Zoloft] 100 mg PO DAILY 01/13/23 01/13/23 Previous Rx's Medication Instructions Recorded Aspirin 81 mg PO DAILY tab 01/20/23 Cephalexin [Keflex] 500 mg PO Q6HR 7 Days #28 cap 01/20/23 Furosemide [Lasix] 40 mg PO DAILY tab 01/20/23 Metoprolol Succinate (ER) [Toprol 25 mg PO DAILY tab 01/20/23 XL] amLODIPine [Norvasc] 5 mg PO BID tab 01/20/23 hydrALAZINE HCL [Apresoline] 25 mg PO BID tab 01/20/23 Allergies Allergy/AdvReac Type Severity Reaction Status Date / Time No Known Allergies Allergy Verified 07/30/23 10:49 Review of Systems ROS Statement: Those systems with pertinent positive or pertinent negative responses have been documented in the HPI. ROS Other: All systems not noted in ROS Statement are negative. Constitutional: Denies: fever, chills Eyes: Denies: eye pain ENT: Denies: ear pain Respiratory: Denies: cough, dyspnea Cardiovascular: Reports: edema. Denies: chest pain Endocrine: Denies: fatigue Gastrointestinal: Denies: abdominal pain Skin: Reports: as per HPI, rash Past Medical History Past Medical History: Unable to Obtain, Heart Failure, Hypertension, Renal Disease Additional Past Medical History / Comment(s): stage 4 kidney History of Any Multi-Drug Resistant Organisms: None Reported Past Surgical History: Unable to Obtain Past Psychological History: No Psychological Hx Reported Smoking Status: Current every day smoker Past Alcohol Use History: Occasional Past Drug Use History: None Reported General Exam Limitations: no limitations General appearance: alert, in no apparent distress Head exam: Present: normocephalic Eye exam: Present: normal appearance Neck exam: Present: normal inspection Respiratory exam: Present: normal lung sounds bilaterally Cardiovascular Exam: Present: regular rate, normal rhythm Expanded Peripheral pulses: 2+: Dorsalis Pedis (R), Dorsalis Pedis (L) GI/Abdominal exam: Present: soft. Absent: tenderness Extremities exam: Present: other (Bilateral lower anterior leg erythema with blistering. Nontender.). Absent: calf tenderness Neurological exam: Present: alert Psychiatric exam: Present: normal affect, normal mood Skin exam: Present: erythema Course Vital Signs 07/30/23 07/30/23 07/30/23 10:46 11:57 13:37 Temperature 98.3 F Pulse Rate 67 58 L 66 Respiratory 20 18 18 Rate Blood Pressure 213/103 196/77 206/96 O2 Sat by Pulse 97 94 L 98 Oximetry EKG Findings - EKG Results: EKG: interpreted by ERMD ((X is. Poor R-wave progression. LVH. Septal Q waves.), sinus rhythm, normal ST/T Medical Decision Making - Medical Decision Making Was pt. sent in by a medical professional or institution (, PA, ANESTHESIOLOGIST/PHYSICIAN, urgent care, hospital, or [facility]...) When possible be specific @ -No Did you speak to anyone other than the patient for history (EMS, parent, family, police, friend...)? What history was obtained from this source @ -Family is present and helps bite history including concern for hypertension. Did you review nursing and triage notes (agree or disagree)? Why? @ -I reviewed and agree with nursing and triage notes Were old charts reviewed (outside hosp., previous admission, EMS record, old EKG, old radiological studies, urgent care reports/EKG's, [facility] records)? Report findings @ -No old charts were reviewed Differential Diagnosis (chest pain, altered mental status, abdominal pain women, abdominal pain men, vaginal bleeding, weakness, fever, dyspnea, syncope, headache, dizziness, GI bleed, back pain, seizure, CVA, palpatations, mental health, musculoskeletal)? @ -Differential Fever: Pneumonia, viral URI, endocarditis, myocarditis, pericarditis, otitis, sinusitis, peritonsillar Abscess, retropharyngeal Abscess, epiglottitis, peritonitis, appendicitis, Jackie cystitis, diverticulitis, hepatitis, colitis, UTI, PID, TOA, pyelonephritis, prostatitis, epididymitis, meningitis, encephalitis, pulmonary embolism, CVA, thyroid storm, pancreatitis, adrenal crisis, cavernous sinus thrombosis, this is not meant to be an all-inclusive list. EKG interpreted by me (3pts min.). @ -As above X-rays interpreted by me (1pt min.). @ -None done CT interpreted by me (1pt min.). @ -None done U/S interpreted by me (1pt. min.). @ -None done What testing was considered but not performed or refused? (CT, X-rays, U/S, labs)? Why? @ -None What meds were considered but not given or refused? Why? @ -None Did you discuss the management of the patient with other professionals (professionals i.e. , PA, ANESTHESIOLOGIST/PHYSICIAN, lab, RT, psych nurse, administrator social welfare, inspector and adjuster golf club head, teacher, ship's electronic warfare officer, case resolution specialist)? Give summary @ -Case was discussed with Dr. Ordaz, who will admit cover Dr. Blake Was smoking cessation discussed for >3mins.? @ -No Was critical care preformed (if so, how long)? @ -No Were there social determinants of health that impacted care today? How? (Homelessness, low income, unemployed, alcoholism, drug addiction, transportation, low edu. Level, literacy, decrease access to med. care, retirement, rehab)? @ -No Was there de-escalation of care discussed even if they declined (Discuss DNR or withdrawal of care, Hospice)? DNR status @ -No What co-morbidities impacted this encounter? (DM, HTN, Smoking, COPD, CAD, Cancer, CVA, ARF, Chemo, Hep., AIDS, mental health diagnosis, sleep apnea, morbid obesity)? @ -None Was patient admitted / discharged? Hospital course, mention meds given and route, prescriptions, significant lab abnormalities, going to OR and other pertinent info. @ -Patient reevaluated. Patient and family updated. Patient presents with cellulitis and blood formation. IV antibiotics ordered. Blood cultures and lactic acid was ordered. Patient remains hypertensive despite medications. Patient will be admitted. Admission orders written. Undiagnosed new problem with uncertain prognosis? @ -No Drug Therapy requiring intensive monitoring for toxicity (Heparin, Nitro, Insulin, Cardizem)? @ -No Were any procedures done? @ -No Diagnosis/symptom? @ -Bilateral lower leg cellulitis, hypertensive urgency Acute, or Chronic, or Acute on Chronic? @ -Acute, acute Uncomplicated (without systemic symptoms) or Complicated (systemic symptoms)? @ -default Side effects of treatment? @ -No Exacerbation, Progression, or Severe Exacerbation? @ -No Poses a threat to life or bodily function? How? (Chest pain, USA, NH, pneumonia, PE, COPD, DKA, ARF, appy, cholecystitis, CVA, Diverticulitis, Homicidal, S uicidal, threat to staff... and all critical care pts) @ -No - Lab Data Result diagrams: 07/30/23 10:59 07/30/23 10:59 Lab Results 07/30/23 07/30/23 07/30/23 Range/Units 10:59 10:59 10:59 WBC 7.0 (3.8-10.6) k/uL RBC 4.21 (3.80-5.40) m/uL Hgb 11.8 (11.4-16.0) gm/dL Hct 36.8 (34.0-46.0) % MCV 87.4 (80.0-100.0) fL MCH 28.1 (25.0-35.0) pg MCHC 32.1 (31.0-37.0) g/dL RDW 15.7 H (11.5-15.5) % Plt Count 143 L (150-450) k/uL MPV 7.3 Neutrophils % 83 % Lymphocytes % 9 % Monocytes % 5 % Eosinophils % 2 % Basophils % 0 % Neutrophils # 5.8 (1.3-7.7) k/uL Lymphocytes # 0.6 L (1.0-4.8) k/uL Monocytes # 0.4 (0-1.0) k/uL Eosinophils # 0.2 (0-0.7) k/uL Basophils # 0.0 (0-0.2) k/uL Hypochromasia Slight Sodium 139 (137-145) mmol/L Potassium 5.3 H (3.5-5.1) mmol/L Chloride 113 H (98-107) mmol/L Carbon Dioxide 20 L (22-30) mmol/L Anion Gap 6 mmol/L BUN 57 H (7-17) mg/dL Creatinine 1.87 H (0.52-1.04) mg/dL Est GFR (CKD-EPI)AfAm 29 (>60 ml/min/1.73 sqM) Est GFR (CKD-EPI)NonAf 25 (>60 ml/min/1.73 sqM) Glucose 93 (74-99) mg/dL Plasma Lactic Acid Mike 0.9 (0.7-2.0) mmol/L Calcium 8.9 (8.4-10.2) mg/dL Total Bilirubin 0.4 (0.2-1.3) mg/dL AST 21 (14-36) U/L ALT 17 (4-34) U/L Alkaline Phosphatase 63 (38-126) U/L Total Protein 5.9 L (6.3-8.2) g/dL Albumin 3.3 L (3.5-5.0) g/dL Disposition Clinical Impression: Hypertensive urgency, Bilateral lower leg cellulitis Disposition: ADMITTED IP TO THIS HOSP Is patient prescribed a controlled substance at d/c from ED?: No Referrals: Glen Escobedo MD [Primary Care Provider] - 1-2 days Time of Disposition: 15:06
[2023-07-30 11:51] LABS: Basophils % (A) 0 %; Eosinophils # (A) 0.2 k/uL (0-0.7); Eosinophils % (A) 2 %; HCT 36.8 % (34.0-46.0); HGB 11.8 gm/dL (11.4-16.0); Hypochromasia Slight; Lymphocytes # (A) 0.6 k/uL (1.0-4.8); Lymphocytes % (A) 9 %; MCH 28.1 pg (25.0-35.0); MCHC 32.1 g/dL (31.0-37.0); MCV 87.4 fL (80.0-100.0); Mean Platelet Volume 7.3; Monocytes # (A) 0.4 k/uL (0-1.0); Monocytes % (A) 5 %; Neutrophils # (A) 5.8 k/uL (1.3-7.7); Neutrophils % (A) 83 %; Platelet Count 143 k/uL (150-450); RBC 4.21 m/uL (3.80-5.40); RDW 15.7 % (11.5-15.5)
[2023-07-30 12:05] LABS: Potassium 5.3 mmol/L (3.5-5.1)
[2023-07-30 12:06] LABS: ALT 17 U/L (4-34); AST 21 U/L (14-36); African American GFR (CKD) 29 (>60 ml/min/1.73 sqM); Albumin 3.3 g/dL (3.5-5.0); Alkaline Phosphatase 63 U/L (38-126); Anion Gap 6 mmol/L; Blood Urea Nitrogen 57 mg/dL (7-17); Calcium 8.9 mg/dL (8.4-10.2); Carbon Dioxide 20 mmol/L (22-30); Chloride 113 mmol/L (98-107); Glucose 93 mg/dL (74-99); Non-African American GFR(CKD) 25 (>60 ml/min/1.73 sqM); Sodium 139 mmol/L (137-145); Total Bilirubin 0.4 mg/dL (0.2-1.3); Total Protein 5.9 g/dL (6.3-8.2)
[2023-07-30] MEDS ORDERED: FUROSEMIDE 10 MG/ML 4 ML VIAL IV STA (13:41)
[2023-07-30] MEDS ORDERED: amLODIPine 5 MG TAB PO STA (13:42)
[2023-07-30] MEDS ORDERED: hydrALAZINE HCL 20 MG/ML 1 ML VIAL IVP PRN (15:03)
[2023-07-30] MEDS ORDERED: ACETAMINOPHEN TAB 325 MG TAB PO PRN (15:08)
[2023-07-30] MEDS ORDERED: NALOXONE 0.4 MG/ML 1 ML VIAL IV PRN (15:08)
[2023-07-30] MEDS ORDERED: SODIUM CHLORIDE 0.9% 1,000 ML IV SCH (15:15)
[2023-07-30] MEDS ORDERED: LABETALOL 200 MG TAB PO PRN (15:16)
[2023-07-30] MEDS: FUROSEMIDE 10 MG/ML 2 ML VIAL IV STA ×2 (16:26→17:31)
[2023-07-30] MEDS: FUROSEMIDE 10 MG/ML 4 ML VIAL IV SCH (16:32)
--- NOTE | 2023-07-30 16:39 | P.HPIM ---
History of Present Illness H&P Date: 07/30/23 Chief Complaint: right leg bullae 77 year old woman with history of HTN, CKD IIIb, and diastolic heart failure presented for evaluation of right leg bulla. Pt says that today upon waking up she noted a new formation of a bulla on her right leg at mid-arce on the anterior aspect. This is new compared to yesterday, and over concerns for this she presented to the hospital. Pt is a bit confused on exam with history that is not fully reliable. However, from my understanding, she has been taking care of herself okay at home and has been managing her own meds since she left rehab back in January after her previous hospitalization. Since that time, she had stopped taking her hydralazine and amlodipine, andher PCP had increased her metoprolol. She has also not been on any lasix at home. She presently denies f, c, n/v/c/d, cp/palps, pre/syncope, cough, dyspnea, orthopnea, abd pain, numbness/weakness of extremities. In the emergency room, patient was afebrile, 213/103, heart rate 67, 97% on room air. CBC showed mild thrombocytopenia to 143, otherwise unremarkable. Basic metabolic panel showed potassium of 5.3, chloride of 113, CO2 of 20, BUN of 57, creatinine 1.87, which appears to be close to baseline. Liver function test showed a low total albumin of 3.3 and low total protein of 5.9. EKG shows sinus arrhythmia with left axis deviation, no evidence of ischemia. All Systems reviewed and pertinent positives and negatives noted in HPI, all other symptoms are negative Gen: in no apparent distress, resting comfortably in bed Eyes: PERRL, no scleral injection or icterus HENT: normocephalic, atraumatic, good hearing acuity, moist mucous membranes Neck: no tracheal deviation, full range of motion Resp: good air exchange, breathing comfortably with no accessory muscle use, no tactile fremitus, clear to auscultation bilaterally CVS: good distal perfusion x 4, bilateral 2+ pitting edema with venous stasis changes, no murmurs appreciable on auscultation, irregular rhythm GI: soft, NTTP, ND, no hepatosplenomegaly : no suprapubic tenderness, no CVAT, wahl catheter not present MSK: no clubbing, no cyanosis, no noted contractures of extremities Skin: no noted rashes, petechiae; temperature of skin is appropriate Neuro: moving all extremities without signs of weakness, CN II-XII intact Psych: cooperative, euthymic mood, insight and judgment intact Labs and imaging as above Assessment/plan: Acute on chronic diastolic heart failure exacerbation Hypertensive urgency -Admit to observation -Strict ins and outs, daily weights -Lasix 40 mg IV daily, status post Lasix 60 mg in the emergency room -Start patient on amlodipine 5 mg twice a day, 25 mg hydralazine twice a day -Add when necessary hydralazine 25 mg 4 times a day as needed as well as labetalol 200 mg 4 times a day as needed for SBP greater than 180, DBP greater than 110 -Monitor on telemetry -BNP, CXR ordered and pending Chronic kidney disease, stage IIIB - nephrology consultation appreciated - monitor daily BMP Pt is DNR/DNI Past Medical History Past Medical History: Unable to Obtain, Heart Failure, Hypertension, Renal Disease Additional Past Medical History / Comment(s): stage 4 kidney History of Any Multi-Drug Resistant Organisms: None Reported Past Surgical History: Unable to Obtain Past Psychological History: No Psychological Hx Reported Smoking Status: Current every day smoker Past Alcohol Use History: Occasional Past Drug Use History: None Reported Medications and Allergies Home Medications Medication Instructions Recorded Confirmed Type Sertraline [Zoloft] 100 mg PO DAILY 01/13/23 01/13/23 History Aspirin 81 mg PO DAILY tab 01/20/23 Rx Cephalexin [Keflex] 500 mg PO Q6HR 7 Days #28 cap 01/20/23 Rx Furosemide [Lasix] 40 mg PO DAILY tab 01/20/23 Rx Metoprolol Succinate (ER) [Toprol 25 mg PO DAILY tab 01/20/23 Rx XL] amLODIPine [Norvasc] 5 mg PO BID tab 01/20/23 Rx hydrALAZINE HCL [Apresoline] 25 mg PO BID tab 01/20/23 Rx Allergies Allergy/AdvReac Type Severity Reaction Status Date / Time No Known Allergies Allergy Verified 07/30/23 10:49 Physical Exam Osteopathic Statement: *. No significant issues noted on an osteopathic structural exam other than those noted in the History and Physical/Consult. Vitals: Vital Signs Temp Pulse Resp BP Pulse Ox 07/30/23 16:00 60 16 190/82 94 L 07/30/23 15:07 98.8 F 61 18 198/98 94 L 07/30/23 13:37 66 18 206/96 98 07/30/23 11:57 58 L 18 196/77 94 L 07/30/23 10:46 98.3 F 67 20 213/103 97 Intake and Output 07/30/23 07/30/23 07/30/23 06:59 14:59 22:59 Other: Weight 90.718 kg Results CBC & Chem 7: 07/30/23 10:59 07/30/23 10:59 Labs: Abnormal Lab Results - Last 24 Hours (Table) 07/30/23 07/30/23 Range/Units 10:59 10:59 RDW 15.7 H (11.5-15.5) % Plt Count 143 L (150-450) k/uL Lymphocytes # 0.6 L (1.0-4.8) k/uL Potassium 5.3 H (3.5-5.1) mmol/L Chloride 113 H (98-107) mmol/L Carbon Dioxide 20 L (22-30) mmol/L BUN 57 H (7-17) mg/dL Creatinine 1.87 H (0.52-1.04) mg/dL Total Protein 5.9 L (6.3-8.2) g/dL Albumin 3.3 L (3.5-5.0) g/dL
[2023-07-30] MEDS: hydrALAZINE HCL 25 MG TAB PO PRN (17:38)
[2023-07-30] MEDS ORDERED: LABETALOL 100 MG TAB PO STA (17:43)
[2023-07-30] MEDS: amLODIPine 5 MG TAB PO SCH (19:41)
[2023-07-30] MEDS: hydrALAZINE HCL 25 MG TAB PO SCH (19:41)
--- NOTE | 2023-07-30 21:14 | XR ---
EXAMINATION TYPE: XR chest 1V DATE OF EXAM: 07/30/2023 6:51 PM CLINICAL INDICATION:Female, 77 years old with history of heart failure; [facility] COMPARISON: 01/19/2023 TECHNIQUE: XR chest 1V Frontal view of the chest. FINDINGS: Study is limited by large partially calcified breast implants obscuring portions of the chest. Lines/Tubes/Devices: None. Heart/mediastinum: Cardiomediastinal silhouette appears unchanged. Heart appears mildly to moderatel y enlarged. Partially calcified aorta. Pulmonary vascularity: Mild pulmonary vascular congestion. Slightly increased interstitial markings a gain noted, could relate to chronic changes and/or mild edema. Lungs/Pleura: Similar appearance of blunting of the left costophrenic angle, could be due to pleural/ parenchymal thickening, versus small effusion with or without infiltrate or atelectasis. Otherwise no definite acute consolidation or pneumothorax. Musculoskeletal: No evidence of an acute bony abnormality. Mild/moderate degenerative changes. Other findings: None significant. IMPRESSION: Cardiomegaly with mild pulmonary vascular congestion. Similar appearance of blunting of the left costophrenic angle, could be due to pleural/parenchymal th ickening, versus small effusion with or without infiltrate or atelectasis. Correlate for possible mild CHF.
[2023-07-31 08:42] LABS: Basophils # (A) 0.03 X 10*3/uL (0.00-0.10); Basophils % (A) 0.4 %; Eosinophils # (A) 0.08 X 10*3/uL (0.04-0.35); Eosinophils % (A) 1.2 %; HCT 34.5 % (37.2-46.3); HGB 10.7 g/dL (12.0-15.0); Lymphocytes # (A) 0.45 X 10*3/uL (0.90-5.00); Lymphocytes % (A) 6.5 %; MCH 27.2 pg (27.0-32.0); MCV 87.8 FL (80.0-97.0); Mean Platelet Volume 9.6 FL (9.5-12.2); Monocytes # (A) 0.39 X 10*3/uL (0.20-1.00); Monocytes % (A) 5.6 %; NRBC Per 100 WBC 0 X 10*3/uL (0.00-0.01); Neutrophils # (A) 5.98 X 10*3/uL (1.80-7.70); Platelet Count 139 X 10*3/uL (140-440); RBC 3.93 X 10*6/uL (4.10-5.20); RDW 15.1 % (11.5-14.5); WBC 6.95 X 10*3/uL (4.50-10.00)
[2023-07-31] MEDS ORDERED: FUROSEMIDE 40 MG TAB PO SCH (09:00)
[2023-07-31] MEDS: METOPROLOL SUCCINATE (ER) 25 MG TAB.ER.24H PO SCH (09:01)
[2023-07-31] MEDS: amLODIPine 5 MG TAB PO SCH ×2 (09:01→21:53)
[2023-07-31] MEDS: SERTRALINE 100 MG TAB PO SCH (09:01)
[2023-07-31] MEDS: ASPIRIN 81 MG PO SCH (09:01)
[2023-07-31] MEDS: hydrALAZINE HCL 25 MG TAB PO SCH ×2 (09:01→21:53)
[2023-07-31 09:28] LABS: ALT 11 U/L (8-44); AST 14 U/L (13-35); Albumin 3.1 g/dL (3.8-4.9); Albumin/Globulin Ratio 1.55 Ratio (1.60-3.17); Alkaline Phosphatase 63 U/L (41-126); BUN/Creat Ratio 25.26 Ratio (12.00-20.00); Blood Urea Nitrogen 58.1 mg/dL (9.0-27.0); Calcium 8.7 mg/dL (8.7-10.3); Carbon Dioxide 23.3 mmol/L (21.6-31.8); Chloride 109 mmol/L (96-109); Glucose 129 mg/dL (70-110); Magnesium 1.6 mg/dL (1.5-2.4); Potassium 5.3 mmol/L (3.5-5.5); Sodium 142 mmol/L (135-145); Total Bilirubin 0.2 mg/dL (0.3-1.2); Total Protein 5.1 g/dL (6.2-8.2)
--- NOTE | 2023-07-31 10:38 | P.PN ---
Subjective Progress Note Date: 07/31/23 No new complaints today. LE edema is improving. CXR personally interpreted and appears to have vascular congestion and cardiomegaly. Gen: in no apparent distress, resting comfortably in bed Eyes: PERRL, no scleral injection or icterus HENT: normocephalic, atraumatic, good hearing acuity, moist mucous membranes Neck: no tracheal deviation, full range of motion Resp: good air exchange, breathing comfortably with no accessory muscle use, no tactile fremitus, clear to auscultation bilaterally CVS: good distal perfusion x 4, bilateral 2+ pitting edema with venous stasis changes, no murmurs appreciable on auscultation, irregular rhythm GI: soft, NTTP, ND, no hepatosplenomegaly : no suprapubic tenderness, no CVAT, wahl catheter not present MSK: no clubbing, no cyanosis, no noted contractures of extremities Skin: no noted rashes, petechiae; temperature of skin is appropriate Neuro: moving all extremities without signs of weakness, CN II-XII intact Psych: cooperative, euthymic mood, insight and judgment intact Hospital Course: 77 year old woman with history of HTN, CKD IIIb, and diastolic heart failure presented for evaluation of right leg bulla. In the emergency room, patient was afebrile, 213/103, heart rate 67, 97% on room air. CBC showed mild thrombocytopenia to 143, otherwise unremarkable. Basic metabolic panel showed potassium of 5.3, chloride of 113, CO2 of 20, BUN of 57, creatinine 1.87, which appears to be close to baseline. Liver function test showed a low total albumin of 3.3 and low total protein of 5.9. EKG shows sinus arrhythmia with left axis deviation, no evidence of ischemia. Assessment/plan: Acute on chronic diastolic heart failure exacerbation Hypertensive urgency -Admit to observation -Strict ins and outs, daily weights -Lasix 40 mg IV daily, status post Lasix 60 mg in the emergency room -Start patient on amlodipine 5 mg twice a day, 25 mg hydralazine twice a day -Add when necessary hydralazine 25 mg 4 times a day as needed as well as labetalol 200 mg 4 times a day as needed for SBP greater than 180, DBP greater than 110 -Monitor on telemetry -BNP reviewed 07/31, BNP 30k+ -CXR personally interpreted 07/31, as noted above -echo ordered Chronic kidney disease, stage IIIB - nephrology consultation appreciated - monitor daily BMP, today Cr is 2.3 Pt is DNR/DNI Objective - Vital Signs Vital signs: Vital Signs Temp 97.6 F 07/31/23 07:00 Pulse 68 07/31/23 07:00 Resp 16 07/31/23 07:00 BP 126/60 07/31/23 07:00 Pulse Ox 93 L 07/31/23 07:00 FiO2 Intake & Output 07/30/23 07/31/23 07/31/23 18:59 06:59 18:59 Intake Total 200 260 Output Total 1100 Balance -900 260 Weight 90.718 kg Intake: Oral 200 260 Output: Urine 1100 Other: Voiding Method External Catheter External Catheter # Bowel Movements 1 - Labs CBC & Chem 7: 07/31/23 06:33 07/31/23 06:33 Labs: Abnormal Lab Results - Last 24 Hours (Table) 07/30/23 07/30/23 07/31/23 Range/Units 10:59 10:59 06:33 RBC 3.93 L (4.10-5.20) X 10*6/uL Hgb 10.7 L (12.0-15.0) g/dL Hct 34.5 L (37.2-46.3) % MCHC 31.0 L (32.0-37.0) g/dL RDW 15.7 H 15.1 H (11.5-15.5) % Plt Count 143 L 139 L (150-450) k/uL Lymphocytes # 0.6 L 0.45 L (1.0-4.8) k/uL Potassium 5.3 H (3.5-5.1) mmol/L Chloride 113 H (98-107) mmol/L Carbon Dioxide 20 L (22-30) mmol/L BUN 57 H (7-17) mg/dL Creatinine 1.87 H (0.52-1.04) mg/dL Est GFR (CKD-EPI) (>=60) BUN/Creatinine Ratio (12.00-20.00) Ratio Glucose (70-110) mg/dL Total Bilirubin (0.3-1.2) mg/dL Total Protein 5.9 L (6.3-8.2) g/dL Albumin 3.3 L (3.5-5.0) g/dL Albumin/Globulin Ratio (1.60-3.17) Ratio 07/31/ Range/Units 06:33 RBC (4.10-5.20) X 10*6/uL Hgb (12.0-15.0) g/dL Hct (37.2-46.3) % MCHC (32.0-37.0) g/dL RDW (11.5-15.5) % Plt Count (150-450) k/uL Lymphocytes # (1.0-4.8) k/uL Potassium (3.5-5.1) mmol/L Chloride (98-107) mmol/L Carbon Dioxide (22-30) mmol/L BUN 58.1 H (7-17) mg/dL Creatinine 2.3 H (0.52-1.04) mg/dL Est GFR (CKD-EPI) 21 L (>=60) BUN/Creatinine Ratio 25.26 H (12.00-20.00) Ratio Glucose 129 H (70-110) mg/dL Total Bilirubin 0.2 L (0.3-1.2) mg/dL Total Protein 5.1 L (6.3-8.2) g/dL Albumin 3.1 L (3.5-5.0) g/dL Albumin/Globulin Ratio 1.55 L (1.60-3.17) Ratio
[2023-07-31] MEDS: FUROSEMIDE 10 MG/ML 4 ML VIAL IV SCH (15:35)
--- NOTE | 2023-07-31 16:30 | P.NPCON ---
History of Present Illness - Reason for Consult Consult date: 07/31/23 acute renal failure - Chief Complaint Leg swelling and blisters. - History of Present Illness Admitted to the hospital with the above complaints. History of chronic kidney disease stage IV secondary to nephrosclerosis with a baseline creatinine of 1.8- 2.2 MG per DL. She got a dose of antibiotics, which was discontinued. Denies any nausea vomiting diarrhea. No chest pain or shortness of breath. Documented urine output of 1100 ML's in the last 24 hours. No documented hypotensive episodes. No recent contrast studies. Review of Systems Constitutional: Reports as per HPI Past Medical History Past Medical History: Unable to Obtain, Cancer, Heart Failure, Hypertension, Renal Disease Additional Past Medical History / Comment(s): Chronic Kidney Disease Stage IV, Breast Cx History of Any Multi-Drug Resistant Organisms: None Reported Past Surgical History: Breast Surgery, Orthopedic Surgery Additional Past Surgical History / Comment(s): Double Mastectomy with Reconstruction Past Anesthesia/Blood Transfusion Reactions: No Reported Reaction Past Psychological History: No Psychological Hx Reported Smoking Status: Current every day smoker Past Alcohol Use History: Occasional Past Drug Use History: None Reported Medications and Allergies Home Medications Medication Instructions Recorded Confirmed Type Sertraline [Zoloft] 100 mg PO DAILY 01/13/23 07/30/23 History Aspirin 81 mg PO DAILY tab 01/20/23 07/30/23 Rx Metoprolol Succinate (ER) [Toprol 100 mg PO DAILY 07/30/23 07/30/23 History Xl] Sodium Polystyrene Sulfon/Sorb 60 ml PO Q14D 07/30/23 07/30/23 History [SPS] Allergies Allergy/AdvReac Type Severity Reaction Status Date / Time No Known Allergies Allergy Verified 07/30/23 16:40 Physical Exam Vitals: Vital Signs Temp Pulse Pulse Resp BP BP Pulse Ox 07/31/23 13:29 97.6 F 51 L 16 154/64 95 07/31/23 07:00 97.6 F 68 16 126/60 93 L 07/31/23 05:48 53 L 112/46 07/31/23 02:32 97.8 F 75 15 189/79 95 07/30/23 19:36 98.1 F 71 15 132/53 95 07/30/23 17:11 98.3 F 56 L 12 194/71 95 Intake and Output 07/31/23 07/31/23 07/31/23 06:59 14:59 22:59 Intake Total 260 Output Total 1100 Balance -1100 260 Intake: Oral 260 Output: Urine 1100 Other: Voiding Method External Catheter External Catheter # Bowel Movements 1 No acute distress S1-S2 heard Decreased breath sounds Abdomen soft Edema Results - Lab Results Most recent lab results Calcium 8.7 mg/dL (8.7-10.3) 07/31/23 06:33 Magnesium 1.6 mg/dL (1.5-2.4) 07/31/23 06:33 07/31/23 06:33 07/31/23 06:33 Assessment and Plan Assessment: #1 acute kidney injury secondary to CRS. #2 lower extremity edema with cellulitis. #3 CHF, unknown EF. #4 hypertension with chronic kidney disease #5 anemia with chronic kidney disease Plan: #1 currently on Lasix, continue at 40 mg daily. #2 check urine analysis, urine electrolytes, bladder scan. #3 labs in the morning. #4 blood pressures labile, continue with current antihypertensive regimen. Adjust based on the readings in the morning
[2023-07-31 18:33] LABS: Appearance,Urine Clear (Clear); Bacteria,Urine Rare /hpf; Bilirubin,Urine Negative (Negative); Blood,Urine Negative (Negative); Color,Urine Colorless; Glucose,Urine (UA) Trace (Negative); Ketones,Urine Negative (Negative); Leukocyte Esterase,Urine Negative (Negative); Nitrite,Urine Negative (Negative); Protein,Urine 2+ (Negative); RBC,Urine 1 /hpf (0-5); Specific Gravity,Urine 1.009 (1.001-1.035); Squamous Epithelial Cell,Urine <1 /hpf (0-4); Urobilinogen,Urine <2.0 mg/dL (<2.0); WBC,Urine 2 /hpf (0-5)
[2023-07-31 23:07] LABS: Urine Creatinine 28.7 mg/dL (28.0-217.0)
[2023-08-01] MEDS: hydrALAZINE HCL 25 MG TAB PO PRN ×2 (02:41→17:23)
--- NOTE | 2023-08-01 07:53 | US ---
EXAMINATION TYPE: US renals and bladder DATE OF EXAM: 07/31/2023 COMPARISON: CLINICAL INDICATION: Female, 77 years old with history of hydronephrosis; Patient states no pain. EXAM MEASUREMENTS: Right Kidney: 7.5 x 4.6 x 4.4 cm Left Kidney: 10.4 x 4.5 x 4.8 cm Right Kidney: Appears small in size. Mild/moderate hydronephrosis. Renal parenchyma appears lobular in appearance. Lateral mid hypoechoic area seen = 0.8 x 0.7 x 0.6 cm. Circular lobular area seen, i soechoic to parenchyma = 2.7 x 2.8 x 2.6 cm, lesion vs prominent lobularity vs other etiology Left Kidney: Mild hydronephrosis. Med lower pole anechoic lesion = 2.0 x 1.8 x 1.4 cm Bladder: distended, anechoic Right Jet seen Incidental finding: enlarged spleen = 13.5 cm IMPRESSION: 1. [id number] right-sided hydronephrosis with mild left-sided hydronephrosis. 2. Splenomegaly. 3. Renal parenchymal thinning nonspecific hepatic lesions identified.Consider CT correlation.
[2023-08-01 08:41] LABS: Basophils # (A) 0.03 X 10*3/uL (0.00-0.10); Basophils % (A) 0.5 %; Eosinophils # (A) 0.21 X 10*3/uL (0.04-0.35); Eosinophils % (A) 3.2 %; HGB 11.9 g/dL (12.0-15.0); Lymphocytes # (A) 0.54 X 10*3/uL (0.90-5.00); Lymphocytes % (A) 8.3 %; MCH 27.8 pg (27.0-32.0); MCHC 31.3 g/dL (32.0-37.0); MCV 88.8 FL (80.0-97.0); Mean Platelet Volume 10.7 FL (9.5-12.2); Monocytes # (A) 0.38 X 10*3/uL (0.20-1.00); Monocytes % (A) 5.9 %; NRBC Per 100 WBC 0 X 10*3/uL (0.00-0.01); Neutrophils # (A) 5.27 X 10*3/uL (1.80-7.70); Neutrophils % (A) 81.5 %; Platelet Count 166 X 10*3/uL (140-440); RBC 4.28 X 10*6/uL (4.10-5.20); RDW 15.1 % (11.5-14.5); WBC 6.47 X 10*3/uL (4.50-10.00)
[2023-08-01 08:58] LABS: BUN/Creat Ratio 25.91 Ratio (12.00-20.00); Blood Urea Nitrogen 59.6 mg/dL (9.0-27.0); Calcium 8.9 mg/dL (8.7-10.3); Chloride 106 mmol/L (96-109); Glucose 119 mg/dL (70-110); Magnesium 1.7 mg/dL (1.5-2.4); Potassium 4.8 mmol/L (3.5-5.5); Sodium 141 mmol/L (135-145)
[2023-08-01] MEDS: ASPIRIN 81 MG PO SCH (09:41)
[2023-08-01] MEDS: hydrALAZINE HCL 25 MG TAB PO SCH (09:41)
[2023-08-01] MEDS: METOPROLOL SUCCINATE (ER) 25 MG TAB.ER.24H PO SCH (09:41)
[2023-08-01] MEDS: SERTRALINE 100 MG TAB PO SCH (09:41)
[2023-08-01] MEDS: amLODIPine 5 MG TAB PO SCH ×2 (09:41→20:44)
--- NOTE | 2023-08-01 11:44 | CA ---
Transthoracic Echo Report Name: Cynthia Bowden Age: 77 Gender: F : 1945 Exam Date: 08/01/2023 10:18 Exam Location: [facility] Ht (in): 60 Wt (lb): 200 Ordering Physician: Jose Alfredo Rutledge MD Attending/Referring Phys: [employer] Stacy Arroyo RDCS Procedure CPT: Indications: Heart failure Cardiac Hx: Technical Quality: Fair Contrast 1: Total Dose (mL): Contrast 2: Total Dose (mL): MEASUREMENTS (Male / Female) Normal Values 2D ECHO LV Diastolic Diameter PLAX 4.7 cm 4.2 - 5.9 / 3.9 - 5.3 cm LV Systolic Diameter PLAX 3.7 cm IVS Diastolic Thickness 2.0 cm 0.6 - 1.0 / 0.6 - 0.9 cm LVPW Diastolic Thickness 1.8 cm 0.6 - 1.0 / 0.6 - 0.9 cm LV Relative Wall Thickness 0.8 LA Volume 122.9 cm??? 18 - 58 / 22 - 52 cm??? LA Volume Index 61.1 cm???/m??? 16 - 28 cm???/m??? DOPPLER AV Peak Velocity 282.3 cm/s AV Peak Gradient 31.9 mmHg AV Mean Velocity 199.4 cm/s AV Mean Gradient 17.5 mmHg AV Velocity Time Integral 67.5 cm LVOT Peak Velocity 124.5 cm/s LVOT Peak Gradient 6.2 mmHg LVOT Velocity Time Integral 32.4 cm MV Peak Velocity 169.7 cm/s MV Peak Gradient 11.5 mmHg MV Mean Velocity 117.0 cm/s MV Mean Gradient 5.9 mmHg MV Velocity Time Integral 43.6 cm MV Area PHT 2.3 cm??? Mitral E Point Velocity 135.2 cm/s Mitral A Point Velocity 102.1 cm/s Mitral E to A Ratio 1.3 MV Deceleration Time 327.3 ms MV E' Velocity 6.3 cm/s Mitral E to MV E' Ratio 21.3 FINDINGS Left Ventricle Severely increased left ventricular wall thickness. Left ventricular cavity size normal. Normal left ventricular systolic function with no obvious regional wall motion abnormalities. Left ventricular ejection fraction is estimated at 55 %. Right Ventricle Normal right ventricular size and function. Right ventricular systolic pressure within normal limits. Right Atrium Normal right atrial size. Left Atrium Severely increased left atrial volume. Moderately increased left atrial area. Mitral Valve Moderate mitral stenosis. Moderate mitral regurgitation. Aortic Valve Trileaflet aortic valve. No aortic valve stenosis or regurgitation. Tricuspid Valve Tricuspid valve not well visualized. Pulmonic Valve Pulmonic valve not well visualized. Pericardium No pericardial effusion. Aorta Aortic root and proximal ascending aorta not well visualized. CONCLUSIONS Normal LV systolic function dilated. Left atrium Moderate mitral regurgitation Severe mitral annular calcification with moderate mitral stenosis Aortic sclerosis with restricted leaflet mobility Consider transesophageal echo if clinically indicated Previewed by: Dr. Raudel Mancini MD (Electronically Signed) Final Date: 01 August 2023 11:43
--- NOTE | 2023-08-01 13:12 | P.PN ---
Subjective Patient is seen for follow-up for acute kidney injury. Maintained on IV Lasix 24 hour urine output noted at 2.1 L. Serum creatinine stable at 2.3 mg/dL. Objective - Vital Signs Vital signs: Vital Signs Temp 97.7 F 08/01/23 07:25 Pulse 66 08/01/23 07:25 Resp 15 08/01/23 07:25 BP 122/69 08/01/23 07:25 Pulse Ox 93 L 08/01/23 07:25 FiO2 Intake & Output 07/31/23 08/01/23 08/01/23 18:59 06:59 18:59 Intake Total 260 118 Output Total 476 1761 Balance -216 -1761 118 Intake: Oral 260 118 Output: Urine 400 1700 Post Void Residual 76 61 Other: Voiding Method External Catheter # Voids 1 - Exam Patient is awake, comfortable, no acute distress Examination of the heart S1 and S2 Examination of the lungs decreased breath sounds at the bases Abdomen is soft nontender Examination lower extremities shows edema 1+ bilaterally - Labs CBC & Chem 7: 08/01/23 05:58 08/01/23 05:58 Labs: Abnormal Lab Results - Last 24 Hours (Table) 07/31/23 07/31/23 08/01/23 Range/Units 18:15 18:15 05:58 Hgb 11.9 L (12.0-15.0) g/dL MCHC 31.3 L (32.0-37.0) g/dL RDW 15.1 H (11.5-14.5) % Lymphocytes # 0.54 L (0.90-5.00) X 10*3/uL BUN (9.0-27.0) mg/dL Creatinine (0.6-1.5) mg/dL Est GFR (CKD-EPI) (>=60) BUN/Creatinine Ratio (12.00-20.00) Ratio Glucose (70-110) mg/dL Urine Protein 2+ H (Negative) Urine Glucose (UA) Trace H (Negative) Urine Bacteria Rare H (None) /hpf Ur Random Microalbumin 143.0 H (0.0-1.9) mg/dL Microalb/Creat Ratio 4983 H (0-30) mg/g Cr 08/01/23 Range/Units 05:58 Hgb (12.0-15.0) g/dL MCHC (32.0-37.0) g/dL RDW (11.5-14.5) % Lymphocytes # (0.90-5.00) X 10*3/uL BUN 59.6 H (9.0-27.0) mg/dL Creatinine 2.3 H (0.6-1.5) mg/dL Est GFR (CKD-EPI) 21 L (>=60) BUN/Creatinine Ratio 25.91 H (12.00-20.00) Ratio Glucose 119 H (70-110) mg/dL Urine Protein (Negative) Urine Glucose (UA) (Negative) Urine Bacteria (None) /hpf Ur Random Microalbumin (0.0-1.9) mg/dL Microalb/Creat Ratio (0-30) mg/g Cr Microbiology - Last 24 Hours (Table) 07/30/23 10:59 Blood Culture - Preliminary Blood 07/30/23 11:10 Blood Culture - Preliminary Blood Assessment and Plan Assessment: #1 acute kidney injury secondary to CRS. #2 lower extremity edema with cellulitis. #3 CHF, unknown EF. #4 hypertension with chronic kidney disease #5 anemia with chronic kidney disease Plan: Continue current dose of diuretics. Continue current antihypertensive regimen. Blood pressure has improved today.
--- NOTE | 2023-08-01 14:45 | P.PN ---
Subjective Progress Note Date: 08/01/23 Hospital Course: 77 year old woman with history of HTN, CKD IIIb, and diastolic heart failure presented for evaluation of right leg bulla. In the emergency room, patient was afebrile, 213/103, heart rate 67, 97% on room air. CBC showed mild thrombocytopenia to 143, otherwise unremarkable. Basic metabolic panel showed potassium of 5.3, chloride of 113, CO2 of 20, BUN of 57, creatinine 1.87, which appears to be close to baseline. Liver function test showed a low total albumin of 3.3 and low total protein of 5.9. EKG shows sinus arrhythmia with left axis deviation, no evidence of ischemia. Patient admitted for acute on chronic diastolic heart failure exacerbation as well as hypertensive urgency. Started on IV diuretics. Nephrology also following. Subjective: Seen and examined at bedside. No acute events overnight. Cough and shortness of breath improving. Pertinent positives and negatives as discussed above, a complete review of systems was performed and all other systems are negative. Vitals Signs Reviewed. General: nontoxic, no distress, appears at stated age Derm: warm, dry Head: atraumatic, normocephalic, symmetric Eyes: EOMI, no lid lag, anicteric sclera Mouth: no lip lesion, mucus membranes moist Cardiovascular: S1S2 reg, systolic murmur Lungs: CTA bilateral, no rhonchi, no rales , no accessory muscle use Abdominal: soft, nontender to palpation, no guarding, no appreciable organomegaly Ext: no gross muscle atrophy, 2+ peripheral edema, no contractures Neuro: CN II-XI grossly intact, no focal neuro deficits Psych: Alert, oriented, appropriate affect Data Reviewed Today: Pertinent Labs: Hemoglobin 11.9, platelet 166, potassium 4.8, creatinine 2.3, magnesium 1.7 Imaging: Echocardiogram report reviewed, shows normal LV systolic function, moderate mitral regurgitation and stenosis Assessment and Plan: Acute on chronic diastolic heart failure exacerbation Hypertensive urgency Moderate mitral regurgitation and stenosis -Strict ins and outs, daily weights -Lasix 40 mg IV daily -Started on amlodipine 5 mg twice a day -Add when necessary hydralazine 25 mg 4 times a day as needed as well as labetalol 200 mg 4 times a day as needed for SBP greater than 180, DBP greater than 110 -Monitor on telemetry Chronic kidney disease, stage IIIB - nephrology note reviewed, continue current dose of IV diuretics. - monitor daily BMP, today Cr is 2.3 Chronic: Depression Observation status change to inpatient as patient failed observation as well as requiring IV Lasix. DVT ppx: Subcu heparin Code status: DNR/DNI Anticipated discharge place: Pending clinical course Anticipated discharge time: Pending clinical course Objective - Vital Signs Vital signs: Vital Signs Temp 97.7 F 08/01/23 07:25 Pulse 66 08/01/23 07:25 Resp 15 08/01/23 07:25 BP 122/69 08/01/23 07:25 Pulse Ox 93 L 08/01/23 07:25 FiO2 Intake & Output 07/31/23 08/01/23 08/01/23 18:59 06:59 18:59 Intake Total 260 118 Output Total 476 1761 Balance -216 -1761 118 Intake: Oral 260 118 Output: Urine 400 1700 Post Void Residual 76 61 Other: Voiding Method External Catheter # Voids 1 - Labs CBC & Chem 7: 08/01/23 05:58 08/01/23 05:58 Labs: Abnormal Lab Results - Last 24 Hours (Table) 07/31/23 07/31/23 08/01/23 Range/Units 18:15 18:15 05:58 Hgb 11.9 L (12.0-15.0) g/dL MCHC 31.3 L (32.0-37.0) g/dL RDW 15.1 H (11.5-14.5) % Lymphocytes # 0.54 L (0.90-5.00) X 10*3/uL BUN (9.0-27.0) mg/dL Creatinine (0.6-1.5) mg/dL Est GFR (CKD-EPI) (>=60) BUN/Creatinine Ratio (12.00-20.00) Ratio Glucose (70-110) mg/dL Urine Protein 2+ H (Negative) Urine Glucose (UA) Trace H (Negative) Urine Bacteria Rare H (None) /hpf Ur Random Microalbumin 143.0 H (0.0-1.9) mg/dL Microalb/Creat Ratio 4983 H (0-30) mg/g Cr 08/01/23 Range/Units 05:58 Hgb (12.0-15.0) g/dL MCHC (32.0-37.0) g/dL RDW (11.5-14.5) % Lymphocytes # (0.90-5.00) X 10*3/uL BUN 59.6 H (9.0-27.0) mg/dL Creatinine 2.3 H (0.6-1.5) mg/dL Est GFR (CKD-EPI) 21 L (>=60) BUN/Creatinine Ratio 25.91 H (12.00-20.00) Ratio Glucose 119 H (70-110) mg/dL Urine Protein (Negative) Urine Glucose (UA) (Negative) Urine Bacteria (None) /hpf Ur Random Microalbumin (0.0-1.9) mg/dL Microalb/Creat Ratio (0-30) mg/g Cr Microbiology - Last 24 Hours (Table) 07/30/23 10:59 Blood Culture - Preliminary Blood 07/30/23 11:10 Blood Culture - Preliminary Blood
[2023-08-01] MEDS: FUROSEMIDE 10 MG/ML 4 ML VIAL IV SCH (17:23)
[2023-08-02] MEDS: amLODIPine 5 MG TAB PO SCH ×2 (09:06→20:42)
[2023-08-02] MEDS: ASPIRIN 81 MG PO SCH (09:06)
[2023-08-02] MEDS: SERTRALINE 100 MG TAB PO SCH (09:08)
[2023-08-02] MEDS: METOPROLOL SUCCINATE (ER) 100 MG TAB.ER.24H PO SCH (09:09)
[2023-08-02 09:35] LABS: BUN/Creat Ratio 24.14 Ratio (12.00-20.00); Blood Urea Nitrogen 67.6 mg/dL (9.0-27.0); Calcium 8.9 mg/dL (8.7-10.3); Carbon Dioxide 23.9 mmol/L (21.6-31.8); Chloride 105 mmol/L (96-109); Glucose 100 mg/dL (70-110); Magnesium 1.8 mg/dL (1.5-2.4); Sodium 141 mmol/L (135-145)
--- NOTE | 2023-08-02 12:29 | P.PN ---
Subjective Patient is seen for follow-up for acute kidney injury. Maintained on IV Lasix 24 hour urine output noted at 1.8 L. Serum creatinine increased to 2.8 mg/dL today. Objective - Vital Signs Vital signs: Vital Signs Temp 97.5 F L 08/02/23 07:43 Pulse 64 08/02/23 07:43 Resp 18 08/02/23 08:00 BP 184/72 08/02/23 07:43 Pulse Ox 92 L 08/02/23 07:43 FiO2 Intake & Output 08/01/23 08/02/23 08/02/23 18:59 06:59 18:59 Intake Total 318 120 Output Total 500 1300 Balance -182 -1300 120 Intake: Oral 318 120 Output: Urine 500 1300 Other: Voiding Method External Catheter External Catheter - Exam Patient is awake, comfortable, no acute distress Examination of the heart S1 and S2 Examination of the lungs decreased breath sounds at the bases Abdomen is soft nontender Examination lower extremities shows edema 1+ bilaterally with significant improvement and wrinkling in the legs noted - Labs CBC & Chem 7: 08/01/23 05:58 08/02/23 05:50 Labs: Abnormal Lab Results - Last 24 Hours (Table) 08/02/23 Range/Units 05:50 Anion Gap 12.10 H (4.00-12.00) mmol/L BUN 67.6 H (9.0-27.0) mg/dL Creatinine 2.8 H (0.6-1.5) mg/dL Est GFR (CKD-EPI) 17 L (>=60) BUN/Creatinine Ratio 24.14 H (12.00-20.00) Ratio Microbiology - Last 24 Hours (Table) 07/30/23 11:10 Blood Culture - Preliminary Blood 07/30/23 10:59 Blood Culture - Preliminary Blood Assessment and Plan Assessment: #1 acute kidney injury secondary to CRS. #2 lower extremity edema with cellulitis. #3 CHF, unknown EF. #4 hypertension with chronic kidney disease #5 anemia with chronic kidney disease Plan: Switch to oral diuretics Continue current antihypertensive regimen. Blood pressure has improved today.
[2023-08-02] MEDS: HEPARIN SODIUM,PORCINE 5,000 UNIT/ML 1 ML VIAL SQ SCH ×2 (13:03→17:59)
--- NOTE | 2023-08-02 16:44 | P.PN ---
Subjective Progress Note Date: 08/02/23 Hospital course: Patient is a very pleasant 77-year-old female with a past medical history of chronic kidney disease stage IIIB, hypertension, diastolic heart failure, and depression. She presented to the emergency department on 07/30/23 for evaluation of right leg wound/bulla. She underwent full evaluation in the emergency department. She was found to have hypertensive urgency with blood pressure of 213/103, heart rate 67, afebrile at 97% on room air. Labs were completed and reviewed. CBC was unremarkable with the exception of mild thrombocytopenia with platelet count of 143. BMP revealed hyperkalemia with potassium of 5.3, hyperchloremia with chloride of 113, hypocarbia with bicarb of 20, an anion gap of 6. Renal function showing BUN of 57, creatinine 1.87, and GFR of 25. BNP elevated at 30,500. Urinalysis was negative for infection. Patient has been admitted under our services with consultation to palliative medicine physician. Physical exam: Vital signs reviewed and stable. General: Nontoxic, no distress and appears stated age. Derm: Skin warm and dry, normal coloration for ethnicity. Head: Atraumatic, normocephalic and symmetric. Eyes: EOMs intact, no lid lag, and anicteric sclera Mouth: no lip lesions, mucus membranes moist Cardiovascular: regular rate and rhythm with normal S1S2, systolic murmur, positive posterior tibial pulses bilaterally, and cap refill < 2 seconds. Lungs: Respirations even, regular, and unlabored on room air. Lungs diminished with no rhonchi, no rales, no wheezing, and no accessory muscle usage. Abdominal: soft, nontender to palpation, no guarding, no appreciable organomegaly Ext: ROM intact. No gross muscle atrophy, 1+ pitting bilateral lower extremity edema, no contractures Neuro: Speech clear, face symmetrical and CN II-XII grossly intact with no noted focal neuro deficits Psych: Alert and oriented to person, place, time, and situation. Appropriate and pleasant affect. Assessment and Plan of Care: Acute on chronic diastolic heart failure exacerbation Hypertensive urgency Moderate mitral regurgitation and stenosis -Strict I's and O's and daily weights. Patient has a documented output of 1800 mL over the past 24 hours. -Lasix 40 mg IV daily -Continue amlodipine 5 mg twice daily, aspirin 81 mg daily, and metoprolol 100 mg daily. -Continue when necessary hydralazine 25 mg 4 times a day as needed as well as la betalol 200 mg 4 times a day as needed for SBP greater than 180, DBP greater than 110 -Continue telemetry monitoring. -Order placed for repeat morning labs including BMP and magnesium to monitor renal function and electrolytes closely during diuresis. Acute kidney injury on Chronic kidney disease stage IIIB -Nephrology following and review documentation on chart, palliative medicine physician recommending continue current dose of IV diuretics and will plan to transition to oral diuretics tomorrow morning.. -Monitor daily BMP, today creatinine again increasing to 2.8. Depression Continue daily medication regimen with the Zoloft 100 mg daily. Observation status was changed to inpatient on 08/01/23 as patient failed observation as well as requiring IV Lasix. Data reviewed: BMP revealing acute kidney injury on chronic kidney disease with BUN of 67.6, creatinine 2.8, and GFR of 17. Vital signs reviewed. Blood pressure 184/72, heart rate 64, respiratory rate 18, temp 97.5F, SpO2 of 92% on room air. CODE STATUS: DO NOT RESUSCITATE/DO NOT INTUBATE DVT prophylaxis: Heparin Anticipated discharge date: Clinical course to determine Anticipated discharge place: Clinical course to determine Patient was seen independently by Nurse Pracitioner. This document was prepared using [employer] dictation software. Please allow for errors in core inspector, while rare they do occur. Objective - Vital Signs Vital signs: Vital Signs Temp 97.6 F 08/02/23 14:00 Pulse 55 L 08/02/23 14:00 Resp 18 08/02/23 14:00 BP 123/58 08/02/23 14:00 Pulse Ox 92 L 08/02/23 14:00 FiO2 Intake & Output 08/01/23 08/02/23 08/02/23 18:59 06:59 18:59 Intake Total 318 240 Output Total 500 1300 400 Balance -182 -1300 -160 Intake: Oral 318 240 Output: Urine 500 1300 400 Other: Voiding Method External Catheter External Catheter # Voids 1 - Labs CBC & Chem 7: 08/01/23 05:58 08/02/23 05:50 Labs: Abnormal Lab Results - Last 24 Hours (Table) 08/02/23 Range/Units 05:50 Anion Gap 12.10 H (4.00-12.00) mmol/L BUN 67.6 H (9.0-27.0) mg/dL Creatinine 2.8 H (0.6-1.5) mg/dL Est GFR (CKD-EPI) 17 L (>=60) BUN/Creatinine Ratio 24.14 H (12.00-20.00) Ratio Microbiology - Last 24 Hours (Table) 07/30/23 11:10 Blood Culture - Preliminary Blood 07/30/23 10:59 Blood Culture - Preliminary Blood
[2023-08-03] MEDS: HEPARIN SODIUM,PORCINE 5,000 UNIT/ML 1 ML VIAL SQ SCH ×3 (00:22→16:26)
[2023-08-03] MEDS: hydrALAZINE HCL 25 MG TAB PO PRN (00:33)
[2023-08-03 00:54] VITALS: TEMP 98.4
[2023-08-03 07:58] VITALS: BP 127/70; PULSE 50; RESP 15
[2023-08-03] MEDS: amLODIPine 5 MG TAB PO SCH (08:34)
[2023-08-03] MEDS: SERTRALINE 100 MG TAB PO SCH (08:34)
[2023-08-03] MEDS: METOPROLOL SUCCINATE (ER) 100 MG TAB.ER.24H PO SCH (08:34)
[2023-08-03] MEDS: ASPIRIN 81 MG PO SCH (08:34)
[2023-08-03] MEDS ORDERED: FUROSEMIDE 40 MG TAB PO SCH (09:00)
[2023-08-03 10:33] LABS: African American GFR (CKD) 22 (>60 ml/min/1.73 sqM); Anion Gap 10 mmol/L; Blood Urea Nitrogen 75 mg/dL (7-17); Calcium 8.7 mg/dL (8.4-10.2); Carbon Dioxide 22 mmol/L (22-30); Chloride 105 mmol/L (98-107); Glucose 121 mg/dL (74-99); Magnesium 1.7 mg/dL (1.6-2.3); Non-African American GFR(CKD) 19 (>60 ml/min/1.73 sqM); Sodium 137 mmol/L (137-145)
--- NOTE | 2023-08-03 13:53 | P.DS ---
Providers Date of admission: 08/01/23 14:26 Expected date of discharge: 08/03/23 Attending physician: Jose Alfredo Rutledge MD Consults: 07/30/23 15:17 Consult Physician Routine Consulting Provider: Edgar Guerrero Consult Reason/Comments: CKD IV, HTN urgency Do you want consulting provider notified?: Yes Primary care physician: Glen Escobedo MD Hospital Course: Discharge Diagnosis: Acute on chronic diastolic heart failure exacerbation. Patient discharged home on Lasix 40 mg daily. Hypertensive urgency. Patient started on amlodipine 5 mg twice daily in addition to current medication regimen with metoprolol 100 mg daily. Blood pressure much improved 127/70. Acute kidney injury on Chronic kidney disease stage IIIb. Acute kidney injury believed to be secondary to cardiorenal syndrome resulting from acute on chronic diastolic heart failure exacerbation. Patient was followed closely throughout hospitalization by shopper's aide. Creatinine on day of discharge was 2.3 with baseline creatinine of 1.9. Nephrology clearing patient from their perspective for discharge recommending patient will benefit from DEEPA inhibition and SGOT2i once GFR stabilizes, planning to start outpatient. Nephrology also discussed with patient recommendations for kidney biopsy. Moderate mitral regurgitation and stenosis Depression. Continue daily medication regimen with the Zoloft 100 mg daily. Hospital Course: Patient is a very pleasant 77-year-old female with a past medical history of chronic kidney disease stage IIIB, hypertension, diastolic heart failure, and depression. She presented to the emergency department on 07/30/23 for evaluation of right leg wound/bulla. She underwent full evaluation in the emergency department. She was found to have hypertensive urgency with blood pressure of 213/103, heart rate 67, afebrile at 97% on room air. Labs were completed and reviewed. CBC was unremarkable with the exception of mild thrombocytopenia with platelet count of 143. BMP revealed hyperkalemia with potassium of 5.3, hyperchloremia with chloride of 113, hypocarbia with bicarb of 20, an anion gap of 6. Renal function showing BUN of 57, creatinine 1.87, and GFR of 25. BNP elevated at 30,500. Urinalysis was negative for infection but positive for protein, glucose, microalbumin with a microalbumin to creatinine ratio of 4983. Patient was admitted under our services with consultation to shopper's aide. She underwent IV diuresis for fluid volume overload resulting from diastolic heart failure. Patient was also started on amlodipine 5 mg twice daily for hypertensive urgency. After successful IV diuresis patient transitioned to oral Lasix. Renal function remains elevated but stable with BUN 75, creatinine 2.32, and GFR of 19. Patient is currently free from any complaints including chest pain, palpitations, shortness of breath, dizziness, lightheadedness, or experiencing any numbness/tingling/weakness/swelling in her extremities. Nephrology evaluated recommending patient will benefit from DEEPA inhibition and SGOT2i once GFR stabilizes, planning to start outpatient. Nephrology also discussed with patient recommendations for kidney biopsy. Patient reports she is very eager to go home, recommended home care patient currently declines stating her significant other and daughter provide her with plenty of support. Patient reports she has a walker at home and declined PT/OT and home care. Medically, patient is stable at this time. Vital signs as follows blood pressure 127/70, heart rate 50, respiratory rate 15, temp 98.4F, SpO2 of 93% on room air. He is medically stable for discharge and to follow up outpatient with her PCP in 1-2 days and with her shopper's aide in 1 week. Creatinine 2.3 at time of discharge and patient sent with prescription to have repeat BMP in 3 days with results to be sent to her shopper's aide for follow-up and management. Physical exam: Vital signs reviewed and stable. General: Nontoxic, no distress and appears stated age. Derm: Skin warm and dry, normal coloration for ethnicity. Head: Atraumatic, normocephalic and symmetric. Eyes: EOMs intact, no lid lag, and anicteric sclera Mouth: no lip lesions, mucus membranes moist Cardiovascular: regular rate and rhythm with normal S1S2, systolic murmur, positive posterior tibial pulses bilaterally, and cap refill < 2 seconds. Lungs: Respirations even, regular, and unlabored on room air. Lungs diminished with no rhonchi, no rales, no wheezing, and no accessory muscle usage. Abdominal: soft, nontender to palpation, no guarding, no appreciable organomegaly Ext: ROM intact. No gross muscle atrophy, scant lower extremity edema, no contractures Neuro: Speech clear, face symmetrical and CN II-XII grossly intact with no noted focal neuro deficits Psych: Alert and oriented to person, place, time, and situation. Appropriate and pleasant affect. A total of 37 minutes of time were spent preparing this complex discharge summary. Pt was discharged on 08/03/23 1:48 PM. Patient was seen independently by Nurse Practitioner. This document was prepared using [employer] dictation software. Please allow for errors in rn team leader while rare they do occur. Patient Condition at Discharge: Stable Plan - Discharge Summary Discharge Rx Participant: No New Discharge Prescriptions: New Furosemide [Lasix] 40 mg PO DAILY 90 Days #90 tab amLODIPine [Norvasc] 5 mg PO BID 90 Days #180 tab Continue Sertraline [Zoloft] 100 mg PO DAILY Aspirin 81 mg PO DAILY tab Metoprolol Succinate (ER) [Toprol XL] 100 mg PO DAILY Sodium Polystyrene Sulfon/Sorb [SPS] 60 ml PO Q14D Discharge Medication List Sertraline [Zoloft] 100 mg PO DAILY 01/13/23 [History] Aspirin 81 mg PO DAILY tab 01/20/23 [Rx] Metoprolol Succinate (ER) [Toprol XL] 100 mg PO DAILY 07/30/23 [History] Sodium Polystyrene Sulfon/Sorb [SPS] 60 ml PO Q14D 07/30/23 [History] Furosemide [Lasix] 40 mg PO DAILY 90 Days #90 tab 08/03/23 [Rx] amLODIPine [Norvasc] 5 mg PO BID 90 Days #180 tab 08/03/23 [Rx] Follow up Appointment(s)/Referral(s): Lamar Tate MD [STAFF PHYSICIAN] - 1 Week Glen Escobedo MD [Primary Care Provider] - 1-2 days Ambulatory/Diagnostic Orders: Basic Metabolic Panel [LAB.AMB] Time Frame: 3 Days, Location: None Selected Patient Instructions/Handouts: Heart Failure (DC), Chronic Kidney Disease (DC), Chronic Kidney Disease Diet (DC) Activity/Diet/Wound Care/Special Instructions: Activity: As tolerated. Take breaks as needed. Diet: Heart healthy and carb consistent diet. Avoid salts, or foods with hidden salts such as canned or boxed foods and frozen dinners. Extra salt makes your heart work harder and traps the fluid in your body for longer. Special Instructions: Take all of your medications as directed and remember to keep all of your doctor's appointments and follow-up as needed. Also as discussed with you by your shopper's aide, it is important to follow-up outpatient in office and further discuss recommended renal biopsy. Recommended home health care, however you have declined. But if you later change your mind please discuss further with your PCP (Dr. Escobedo) at your follow up visit to discuss further as they too can set up these arrangements. Thank you for allowing us to participate in your care, it was truly a pleasure having you for our patient!!! Discharge Disposition: HOME SELF-CARE
--- NOTE | 2023-08-03 15:20 | P.PN ---
Subjective Patient is seen in follow-up for acute kidney injury on chronic kidney disease. Renal function better. Resting in bed. Has been voiding. Hemodynamically stable. On room air. Vital signs are stable. General: No acute distress. HEENT: Head exam is unremarkable. LUNGS: No audible rhonchi or wheezes. HEART: Rate and Rhythm are regular. ABDOMEN: Nontender. EXTREMITITES: No edema. Objective - Vital Signs Vital signs: Vital Signs Temp 98.4 F 08/03/23 07:00 Pulse 50 L 08/03/23 07:00 Resp 15 08/03/23 07:00 BP 127/70 08/03/23 07:00 Pulse Ox 93 L 08/03/23 07:00 FiO2 Intake & Output 08/02/23 08/03/23 08/03/23 18:59 06:59 18:59 Intake Total 240 236 Output Total 400 1100 Balance -160 -1100 236 Intake: Oral 240 236 Output: Urine 400 1100 Other: Voiding Method External Catheter External Catheter # Voids 1 - Labs CBC & Chem 7: 08/01/23 05:58 08/03/23 09:59 Labs: Abnormal Lab Results - Last 24 Hours (Table) 08/03/23 Range/Units 09:59 BUN 75 H (7-17) mg/dL Creatinine 2.32 H (0.52-1.04) mg/dL Glucose 121 H (74-99) mg/dL Microbiology - Last 24 Hours (Table) 07/30/23 11:10 Blood Culture - Preliminary Blood 07/30/23 10:59 Blood Culture - Preliminary Blood Assessment and Plan Plan: Assessment: 1. Acute kidney injury secondary to vasomotor nephropathy secondary to cardiorenal syndrome. Creatinine peaked at 2.8 this admission and is 2.32 today. 2. Lower extremity cellulitis. 3. Volume overload. Improving with diuresis. 4. Hypertension with chronic kidney disease. Controlled. 5. Anemia of chronic kidney disease. 6. Nephrotic range proteinuria. 7. Chronic kidney disease stage IIIB with baseline creatinine in the range of 1.5-2. UA shows 2+ protein and only 1 RBC. MACR 4.98 g. No history of diabetes. Need to rule out GN. Plan: Maintain oral Lasix. Check serologies. Will benefit from DEEPA inhibition and SGLT2i if GFR stable. Will start outpatient. Discussed kidney biopsy with patient. Will schedule outpatient if agreeable. Follow-up outpatient 1 week post discharge.
[2023-08-04 04:10] LABS: Hepatitis A Antibody IgM Nonreactive; Hepatitis B Core IgM Nonreactive; Hepatitis B Surface Antigen Nonreactive; Hepatitis C IgG Antibody Nonreactive
[2023-08-04 05:16] LABS: Albumin 3.3 g/dL (3.8-4.9); Protein, Total 5.5 g/dL (6.2-8.2)
[2023-08-04 05:28] LABS: Immunoglobulin M <35.0 mg/dL (40.0-280.0)
[2023-08-04 05:54] LABS: Anti-DNA, DS unit <1.0 IU/mL; DNA Double-Stranded Negative (Negative)
[2023-08-05 14:19] LABS: C-ANCA <1:20 Titer (<1:20)
== END 2023-08-03 16:55 | disposition home or self-care (01) | DRG 291 ==
LOC: EC 10:37 → 6NMEDSUR 15:08 → OBSVTOIN 08-01 14:26
PROVIDERS: ADMIT Internal Medicine; ATTEND Internal Medicine
DX: I13.0 Hypertensive heart and chronic kidney disease with heart failure and stage 1 through stage 4 chronic kidney disease, or unspecified chronic kidney disease (principal); I50.33 Acute on chronic diastolic (congestive) heart failure; L03.115 Cellulitis of right lower limb; L03.116 Cellulitis of left lower limb; N17.8 Other acute kidney failure; Z66 Do not resuscitate; D69.6 Thrombocytopenia, unspecified; N18.32 Chronic kidney disease, stage 3b; I16.0 Hypertensive urgency; I05.2 Rheumatic mitral stenosis with insufficiency; F32.A Depression, unspecified; F17.200 Nicotine dependence, unspecified, uncomplicated; E87.8 Other disorders of electrolyte and fluid balance, not elsewhere classified; E87.5 Hyperkalemia; D63.1 Anemia in chronic kidney disease; E11.22 Type 2 diabetes mellitus with diabetic chronic kidney disease; Z90.13 Acquired absence of bilateral breasts and nipples; Z79.82 Long term (current) use of aspirin; Z79.899 Other long term (current) drug therapy
CPT/HCPCS: 36415; 71045; 76770; 80048; 80053; 80074; 81001; 82043; 82570; 83605; 83735; 83880; 84165; 84300; 84540; 85025; 86038; 86160; 86162; 86225; 86255; 86334; 86335; 87040; 93005; 93306; 96365; 96375; 96376; 99285

== ENCOUNTER 2023-10-10 18:16 | Emergency (ER) | payer MEDICARE, OTHER ==
[2023-10-10 18:46] VITALS: TEMP 98.5
--- NOTE | 2023-10-10 19:24 | ED ---
General Adult HPI - General Chief complaint: Fall Stated complaint: Fall Time Seen by Provider: 10/10/23 18:22 Source: EMS Mode of arrival: EMS Limitations: no limitations - History of Present Illness Initial comments: Dictation was produced using [email or web address] dictation software. please excuse any grammatical, word or spelling errors. Chief Complaint: 78-year-old female with past medical history of heart failure, hypertension and kidney disease presents to the ER after fall History of Present Illness: Patient is an 78-year-old female she is a poor histo farhana states that she was at home when something fell loud noise caused her to jump lose her balance. She states that she fell. She states that she fell forward. Denies any loss of consciousness. She states that she takes anticoagulation medications. Patient is not sure who called EMS. She does not have any complaints. Denies any pain. The ROS documented in this emergency department record has been reviewed and confirmed by me. Those systems with pertinent positive or negative responses have been documented in the HPI. All other systems are other negative and/or noncontributory. - Related Data Home Medications Medication Instructions Recorded Confirmed Sertraline [Zoloft] 100 mg PO DAILY 01/13/23 07/30/23 Metoprolol Succinate (ER) [Toprol 100 mg PO DAILY 07/30/23 07/30/23 XL] Sodium Polystyrene Sulfon/Sorb 60 ml PO Q14D 07/30/23 07/30/23 [SPS] Previous Rx's Medication Instructions Recorded Aspirin 81 mg PO DAILY tab 01/20/23 Furosemide [Lasix] 40 mg PO DAILY 90 Days #90 tab 08/03/23 amLODIPine [Norvasc] 5 mg PO BID 90 Days #180 tab 08/03/23 Allergies Allergy/AdvReac Type Severity Reaction Status Date / Time No Known Allergies Allergy Verified 07/30/23 16:40 Review of Systems ROS Statement: Those systems with pertinent positive or pertinent negative responses have been documented in the HPI. ROS Other: All systems not noted in ROS Statement are negative. Past Medical History Past Medical History: Cancer, Heart Failure, Hypertension, Renal Disease Additional Past Medical History / Comment(s): Chronic Kidney Disease Stage IV, Breast Cx History of Any Multi-Drug Resistant Organisms: None Reported Past Surgical History: Breast Surgery, Orthopedic Surgery Additional Past Surgical History / Comment(s): Double Mastectomy with Reconstruction Past Anesthesia/Blood Transfusion Reactions: No Reported Reaction Past Psychological History: No Psychological Hx Reported Smoking Status: Current every day smoker Past Alcohol Use History: Occasional Past Drug Use History: None Reported General Exam - General Exam Comments Initial Comments: PHYSICAL EXAM: General Impression: Alert and oriented x3, not in acute distress, sleepy HEENT: Normocephalic atraumatic, extra-ocular movements intact, pupils equal and reactive to light bilaterally, mucous membranes moist. Cardiovascular: Heart regular rate and rhythm Chest: Able to complete full sentences, no retractions, no tachypnea Abdomen: abdomen soft, non-tender, non-distended, no organomegaly Musculoskeletal: Pulses present and equal in all extremities, no peripheral edema Motor: no focal deficits noted Neurological: CN II-XII grossly intact, no focal motor or sensory deficits noted Skin: Intact with no visualized rashes Psych: Normal affect and mood Limitations: no limitations Course Vital Signs 10/10/23 10/10/23 18:21 20:10 Temperature 98.5 F Pulse Rate 79 60 Respiratory 18 19 Rate Blood Pressure 184/80 160/80 O2 Sat by Pulse 98 99 Oximetry EKG Findings - EKG Comments: EKG Findings:: My EKG interpretation: Ventricular rate 66, sinus rhythm, parable 247, QRS 101, QTc 468. No MS prolongation, no QTC prolongation, no ST or T-wave changes noted. EKG compared to [default value] showing no changes. Overall, this EKG is unremarkable Medical Decision Making - Medical Decision Making Was pt. sent in by a medical professional or institution (, PA, NON DESTRUCTIVE EVALUATION MANAGER, urgent care, hospital, or jail...) When possible be specific @ -No Did you speak to anyone other than the patient for history (EMS, parent, family, police, friend...)? What history was obtained from this source @ -No Did you review nursing and triage notes (agree or disagree)? Why? @ -I reviewed and agree with nursing and triage notes Were old charts reviewed (outside hosp., previous admission, EMS record, old EKG, old radiological studies, urgent care reports/EKG's, jail records)? Report findings @ -No old charts were reviewed Differential Diagnosis (chest pain, altered mental status, abdominal pain women, abdominal pain men, vaginal bleeding, musculoskeletal, weakness, fever, dyspnea, syncope, headache, dizziness, GI bleed, back pain, seizure, CVA, palpatations, mental health)? @ -Differential Altered Mental Status: Hypoglycemia, DKA, hypercapnia, ETOH, overdose, CO poisoning, trauma, myxedema coma, HTN encephalopathy, infection, encephalitis, psychosis, intercranial hemorrhage, hepatic encephalopathy, meningitis, CVA, this is not meant to be an all-inclusive list EKG interpreted by me (3pts min.). @ -See above X-rays interpreted by me (1pt min.). @ -Chest x-ray and pelvis x-ray unremarkable CT interpreted by me (1pt min.). @ -CT scan of the brain shows a small area of hypoattenuation in the right frontal lobe suspicious for possible microhemorrhage U/S interpreted by me (1pt. min.). @ -None done What testing was considered but not performed or refused? (CT, X-rays, U/S, labs)? Why? @ -None What meds were considered but not given or refused? Why? @ -None Did you discuss the management of the patient with other professionals (professionals i.e. , PA, NON DESTRUCTIVE EVALUATION MANAGER, lab, RT, psych nurse, social media job titles, configurator, teacher, coastal/harbor defense officer, case therapist)? Give summary @ -Case discussed with Dr. Stevens at [facility] who is excepting transfer Was smoking cessation discussed for >3mins.? @ -No Was critical care preformed (if so, how long)? @ -Yes, 33 minutes Were there social determinants of health that impacted care today? How? (Homelessness, low income, unemployed, alcoholism, drug addiction, transportation, low edu. Level, literacy, decrease access to med. care, half-way, rehab)? @ -No Was there de-escalation of care discussed even if they declined (Discuss DNR or withdrawal of care, Hospice)? DNR status @ -No What co-morbidities impacted this encounter? (DM, HTN, Smoking, COPD, CAD, Cancer, CVA, ARF, Chemo, Hep., AIDS, mental health diagnosis, sleep apnea, morbid obesity)? @ -Use of anticoagulation medications Was patient admitted / discharged? Hospital course, mention meds given and route, prescriptions, significant lab abnormalities, going to OR and other pertinent info. @ -78-year-old female presents to the emergency department with altered mental status and frequent falls. It is unclear if patient suffered any head trauma. Vital signs upon arrival shows blood pressure 184/80. Repeat blood pressure is 160/80. Laboratory evaluation within acceptable limits. She has a troponin 0.075 but she has history of elevated troponin. X-rays unremarkable. CT scan of the brain shows findings suspicious for intracranial hemorrhage. Case was discussed with Dr. Carlton at [facility] did not feel that if she had a small bleeding that is likely calcification to not administer Kcentra. Patient reevaluated bedside 10:12 PM resting comfortably. Patient be transferred to [facility] Undiagnosed new problem with uncertain prognosis? @ -No Drug Therapy requiring intensive monitoring for toxicity (Heparin, Nitro, Insulin, Cardizem)? @ -No Were any procedures done? @ -No Diagnosis/symptom? Acute, or Chronic, or Acute on Chronic? Uncomplicated (without systemic symptoms) or Complicated (systemic symptoms)? @ -Altered mental status, suspect intracranial bleed Side effects of treatment? @ -No Exacerbation, Progression, or Severe Exacerbation? @ -No Poses a threat to life or bodily function? How? (Chest pain, USA, PA, pneumonia, PE, COPD, DKA, ARF, appy, cholecystitis, CVA, Diverticulitis, Homicidal, Suicidal, threat to staff... and all critical care pts) @ -yes - Lab Data Result diagrams: 10/10/23 19:49 10/10/23 19:49 Lab Results 10/10/23 10/10/23 10/10/23 Range/Units 19:49 19:49 19:49 WBC 7.6 (3.8-10.6) k/uL RBC 4.42 (3.80-5.40) m/uL Hgb 12.4 (11.4-16.0) gm/dL Hct 37.6 (34.0-46.0) % MCV 85.0 (80.0-100.0) fL MCH 28.0 (25.0-35.0) pg MCHC 32.9 (31.0-37.0) g/dL RDW 16.3 H (11.5-15.5) % Plt Count 127 L (150-450) k/uL MPV 7.1 Neutrophils % 86 % Lymphocytes % 7 % Monocytes % 5 % Eosinophils % 1 % Basophils % 0 % Neutrophils # 6.5 (1.3-7.7) k/uL Lymphocytes # 0.6 L (1.0-4.8) k/uL Monocytes # 0.4 (0-1.0) k/uL Eosinophils # 0.1 (0-0.7) k/uL Basophils # 0.0 (0-0.2) k/uL Poikilocytosis Slight Anisocytosis Slight PT 10.7 (10.0-12.5) sec INR 1.0 (<1.2) APTT 20.7 L (22.0-30.0) sec Sodium 140 (137-145) mmol/L Potassium 5.3 H (3.5-5.1) mmol/L Chloride 113 H (98-107) mmol/L Carbon Dioxide 18 L (22-30) mmol/L Anion Gap 9 mmol/L BUN 71 H (7-17) mg/dL Creatinine 2.08 H (0.52-1.04) mg/dL Est GFR (CKD-EPI)AfAm 25 (>60 ml/min/1.73 sqM) Est GFR (CKD-EPI)NonAf 22 (>60 ml/min/1.73 sqM) Glucose 108 H (74-99) mg/dL Plasma Lactic Acid Mike (0.7-2.0) mmol/L Calcium 8.9 (8.4-10.2) mg/dL Magnesium 1.8 (1.6-2.3) mg/dL Total Bilirubin 0.7 (0.2-1.3) mg/dL AST 69 H (14-36) U/L ALT 34 (4-34) U/L Alkaline Phosphatase 74 (38-126) U/L Ammonia (<30) umol/L Troponin I (0.000-0.034) ng/mL Total Protein 6.2 L (6.3-8.2) g/dL Albumin 3.5 (3.5-5.0) g/dL 10/10/23 10/10/23 Range/Units 19:49 19:49 WBC (3.8-10.6) k/uL RBC (3.80-5.40) m/uL Hgb (11.4-16.0) gm/dL Hct (34.0-46.0) % MCV (80.0-100.0) fL MCH (25.0-35.0) pg MCHC (31.0-37.0) g/dL RDW (11.5-15.5) % Plt Count (150-450) k/uL MPV Neutrophils % % Lymphocytes % % Monocytes % % Eosinophils % % Basophils % % Neutrophils # (1.3-7.7) k/uL Lymphocytes # (1.0-4.8) k/uL Monocytes # (0-1.0) k/uL Eosinophils # (0-0.7) k/uL Basophils # (0-0.2) k/uL Poikilocytosis Anisocytosis PT (10.0-12.5) sec INR (<1.2) APTT (22.0-30.0) sec Sodium (137-145) mmol/L Potassium (3.5-5.1) mmol/L Chloride (98-107) mmol/L Carbon Dioxide (22-30) mmol/L Anion Gap mmol/L BUN (7-17) mg/dL Creatinine (0.52-1.04) mg/dL Est GFR (CKD-EPI)AfAm (>60 ml/min/1.73 sqM) Est GFR (CKD-EPI)NonAf (>60 ml/min/1.73 sqM) Glucose (74-99) mg/dL Plasma Lactic Acid Mike 0.9 (0.7-2.0) mmol/L Calcium (8.4-10.2) mg/dL Magnesium (1.6-2.3) mg/dL Total Bilirubin (0.2-1.3) mg/dL AST (14-36) U/L ALT (4-34) U/L Alkaline Phosphatase (38-126) U/L Ammonia 15 (<30) umol/L Troponin I 0.075 H* (0.000-0.034) ng/mL Total Protein (6.3-8.2) g/dL Albumin (3.5-5.0) g/dL Disposition Clinical Impression: Fall, Intracranial bleed Disposition: OTHER INSTITUTION NOT DEFINED Condition: Serious Referrals: Glen Escobedo DO [Primary Care Provider] - 1-2 days Time of Disposition: 22:13 - Out of Hospital Transfer - Req. Specs Out of Hospital Transfer - Requested Specifics: Other Emergency Center ([facility])
--- NOTE | 2023-10-10 19:35 | XR ---
EXAMINATION TYPE: XR pelvis AP view DATE OF EXAM: 10/10/2023 7:22 PM CLINICAL INDICATION:Female, 78 years old with history of fall; [facility] COMPARISON: None TECHNIQUE: The pelvis was examined in a single projection. FINDINGS: Bones appear moderately demineralized. That and overlying soft tissue limits evaluation. Degenerative changes of the lower lumbar spine and SI joints. Reconstruction hardware extends horizontally across the sacrum and SI joints. Large fixation screw extends from left lateral medially, projecting over t he left SI joint and the tip terminates just right of midline over the upper sacrum. Hardware appears intact. Moderate bilateral hip arthropathy. No acute hip fracture or dislocation is suggested on this single projection. There are irregularities of the bilateral inferior pubic rami with the appearance of old healed fractures. No definite acute fracture lucency is seen. Arterial calcifications over the upper thighs. Surgical clip over the right lower abdomen. IMPRESSION: No acute fracture or dislocation identified, on this single view of the pelvis.
--- NOTE | 2023-10-10 19:52 | XR ---
EXAM: XR chest 1V portable CLINICAL INDICATION:Female, 78 years old with history of fall; [facility] COMPARISON: 07/30/2023 TECHNIQUE: Chest single view. FINDINGS: Examination is limited with large partially calcified breast implants obscuring a significant portion of the lungs/chest. Lines/tubes/devices: Extrinsic structures over the chest. No indwelling lines. Cardiomediastinum: Cardiac silhouette appears stable, moderately enlarged. Stable mediastinum. Atherosclerotic calcification and tortuosity of the aorta. Vasculature: No increased pulmonary vasculature. Lungs/pleura: Suspect mild bibasilar atelectasis. Similar appearance of left basilar opacity with blunting of the l eft costophrenic angle, likely chronic changes. No consolidation, sizeable effusion, or visible pneum othorax. Bones/soft tissues: Bony thorax appears grossly intact with degenerative changes of the spine and shoulders noted. Region al soft tissues appear unremarkable. IMPRESSION: Cardiomegaly with mild bibasilar atelectasis, likely chronic changes at the left lung base. Otherwise no acute findings, or significant interval change.
[2023-10-10 20:00] LABS: Anisocytosis Slight; Basophils % (A) 0 %; Eosinophils # (A) 0.1 k/uL (0-0.7); Eosinophils % (A) 1 %; HCT 37.6 % (34.0-46.0); HGB 12.4 gm/dL (11.4-16.0); Lymphocytes # (A) 0.6 k/uL (1.0-4.8); Lymphocytes % (A) 7 %; MCHC 32.9 g/dL (31.0-37.0); Mean Platelet Volume 7.1; Monocytes # (A) 0.4 k/uL (0-1.0); Monocytes % (A) 5 %; Neutrophils # (A) 6.5 k/uL (1.3-7.7); Neutrophils % (A) 86 %; Platelet Count 127 k/uL (150-450); Poikilocytosis Slight; RBC 4.42 m/uL (3.80-5.40); RDW 16.3 % (11.5-15.5); WBC 7.6 k/uL (3.8-10.6)
[2023-10-10 20:11] LABS: Lactic Acid, Venous 0.9 mmol/L (0.7-2.0)
[2023-10-10 20:13] LABS: ALT 34 U/L (4-34); African American GFR (CKD) 25 (>60 ml/min/1.73 sqM); Albumin 3.5 g/dL (3.5-5.0); Anion Gap 9 mmol/L; Blood Urea Nitrogen 71 mg/dL (7-17); Calcium 8.9 mg/dL (8.4-10.2); Carbon Dioxide 18 mmol/L (22-30); Chloride 113 mmol/L (98-107); Glucose 108 mg/dL (74-99); Non-African American GFR(CKD) 22 (>60 ml/min/1.73 sqM); Sodium 140 mmol/L (137-145); Total Bilirubin 0.7 mg/dL (0.2-1.3); Total Protein 6.2 g/dL (6.3-8.2)
[2023-10-10 20:15] LABS: AST 69 U/L (14-36); Alkaline Phosphatase 74 U/L (38-126); Magnesium 1.8 mg/dL (1.6-2.3); Potassium 5.3 mmol/L (3.5-5.1)
[2023-10-10 20:19] LABS: Prothrombin Time 10.7 sec (10.0-12.5)
[2023-10-10 20:21] LABS: Partial Thromboplastin Time 20.7 sec (22.0-30.0)
[2023-10-10 20:26] VITALS: PULSE 60
--- NOTE | 2023-10-10 21:54 | CT ---
EXAMINATION TYPE: CT brain cspine wo con CT DLP: 1447.6 mGycm, Automated exposure control for dose reduction was used. DATE OF EXAM: 10/10/2023 8:06 PM COMPARISON: None. CLINICAL INDICATION:Female, 78 years old with history of fall; fall TECHNIQUE: Brain: Multiple axial CT images of the brain were obtained without IV contrast. Cspine: Axial CT images from the skull base to the inferior aspect of T2 we obtained without intraven ous contrast. Coronal and sagittal reformatted images were also reviewed. FINDINGS: Brain: Extra-axial spaces: No abnormal extra-axial fluid collections. Some dural calcifications are seen lani ng the interhemispheric fissure primarily. Ventricular system: Appear dilated in proportion to the degree of cerebral atrophy. Cerebral parenchyma: No sizable hemorrhage is seen. There is a tiny focus of increased attenuation s uggested in the posterior right frontal lobe white matter, image 41 axial, judged more likely to repr esent calcification or DVA than acute microhemorrhage. The zimmer-white matter interface appears mainta ined. Moderate generalized brain atrophy. Scattered hypoattenuating areas are seen within the cereb ral white matter, nonspecific but most often seen with chronic microvascular ischemic changes; mild/m oderate in degree. Cerebellum: No acute abnormality. Mass effect: No evidence of mass effect or midline shift. Intracranial vasculature: Atherosclerotic calcifications of the larger arteries near the skull base. Soft tissues: No acute abnormality. Visualized orbits: Orbital contents appear grossly intact. Calvarium/osseous structures: No evidence of calvarial fracture. Paranasal sinuses and mastoid air cells: Clear. MRI is more sensitive for detecting acute processes such as infarct, and may be considered if clinica lly warranted. Cervical spine: Fracture: None seen. Osseous structures, spinal canal/neural foramina: Generalized osteopenia. There is moderate to severe degenerative disc disease and facet arthrosis throughout. No critical osseous spinal canal stenosis is suggested. There is generally moderate to severe degenerative disc disease changes and facet arthrosis, causing the stenoses described below. C1-C2: Moderate to severe degenerative changes of the anterior C1-C2 articulation with mild retrodent al soft tissue and partial calcification mildly narrowing the anterior canal. C2-C3: Mild spinal ramiro l stenosis. Moderate right and mild left neural foraminal stenosis. The bilateral facets are nearly f used. C3-C4: Mild canal stenosis. Moderate bilateral neural foraminal stenosis. C4-C5: Moderate spina l canal and bilateral foraminal stenosis. C5-C6: Moderate spinal canal and bilateral neural foraminal stenosis. C6-C7: Moderate spinal canal stenosis, moderate to severe left and moderate right neural f oraminal stenoses. C7-T1, T1-T2: Mild canal and foraminal stenoses. In the visualized lower T2 through upper T4 segments, there is ossification of the posterior longitud inal ligament resulting in moderate narrowing of the anterior central spinal canal. Mild bilateral ne ural foraminal stenoses. Vertebral alignment: No traumatic malalignment. Straightening mild reversal of the normal cervical lo rdosis, can be seen with degenerative changes, pain, positioning, muscular spasm. Mild degenerative a nterolisthesis C4 on C5, retrolisthesis C6 on C7, anterolisthesis C7 on T1 and anterolisthesis T1 and T2. There is moderate levocurvature throughout the cervical spine as well. Neck soft tissues: No acute finding.. Moderate to heavy calcifications noted involving the cervical c arotid arteries mostly in the bifurcation regions, and along the aortic arch. Other: Lung apices show no acute infiltrate or pneumothorax. Chronic interstitial changes. Mildly pa tulous esophagus with air-fluid level, correlate for possible achalasia or reflux more distally. IMPRESSION: CT head: 1. Atrophy and chronic microvascular ischemic white matter changes. 2. No large intracranial hemorrhage detected. 3. Tiny focus of increased attenuation in the right frontal lobe white matter, favored to be chronic and less likely acute microhemorrhage. Follow-up as clinically warranted. CT cervical spine: 1. No evidence of acute cervical spine fracture or traumatic malalignment. 2. Moderate/severe cervical spondylosis, described above.
[2023-10-10 22:39] VITALS: BP 149/65; RESP 16
== END 2023-10-10 22:42 | disposition other institution (70) ==
LOC: EC 18:16
DX: S06.2XAA Diffuse traumatic brain injury with loss of consciousness status unknown, initial encounter (principal); R40.2252 Coma scale, best verbal response, oriented, at arrival to emergency department; R40.2142 Coma scale, eyes open, spontaneous, at arrival to emergency department; R40.2362 Coma scale, best motor response, obeys commands, at arrival to emergency department; I13.0 Hypertensive heart and chronic kidney disease with heart failure and stage 1 through stage 4 chronic kidney disease, or unspecified chronic kidney disease; I50.9 Heart failure, unspecified; N18.4 Chronic kidney disease, stage 4 (severe); F17.200 Nicotine dependence, unspecified, uncomplicated; Z79.899 Other long term (current) drug therapy; W01.0XXA Fall on same level from slipping, tripping and stumbling without subsequent striking against object, initial encounter; Y92.009 Unspecified place in unspecified non-institutional (private) residence as the place of occurrence of the external cause
CPT/HCPCS: 36415; 70450; 71045; 72125; 72170; 80053; 82140; 83605; 83735; 84484; 85025; 85610; 85730; 93005; 99291